=== PATIENT | male | born 1955 | race Caucasian/White ===

== ENCOUNTER 2020-02-29 14:11 | Inpatient (IN) | payer MEDICARE ==
[~2020-02-29] VITALS: Ht 170.2 cm; Wt 110.7 kg
[2020-02-29] VITALS (8 sets, daily range): BP systolic 100–113; BP diastolic 45–74
--- NOTE | 2020-02-29 14:45 | NUR ---
ED Nurse Note: IV access established on left AC 20 ga. Blood sent down
[2020-02-29 14:47] LABS: MEAN CORPUSCULAR VOLUME 94 FL (80-99); PLATELET COUNT 214 K/UL (150-450); RED BLOOD COUNT 5.55 M/UL (4.70-6.10); RED CELL DISTRIBUTION WIDTH 11.9 % (11.6-14.8); WHITE BLOOD COUNT 21.4 K/UL (4.8-10.8)
--- NOTE | 2020-02-29 14:51 | NUR ---
sED Nurse Note: Patient was brought in by ambulance from [facility] due to overdose. Per EMT physical security manager called 911. EMS found patient unresponsive, agonal breathing and cyanotic and two empty bottles of Oxycodone. Unknown ingestion time or amount. No vomitus found near patient. Patient presented with flat affect, responsive to voice, and sternal rub. Patient has labored, shallow breathing, O2 sat 76% via regular mask 6L. Patient was placed on non-rebreather mask 15L. Patient's O2 sat 97%.
[2020-02-29 14:56] LABS: HEMOGLOBIN 18.2 G/DL (14.2-18.0)
[2020-02-29 15:03] LABS: ANION GAP 19 mmol/L (5-15); BLOOD UREA NITROGEN 18 mg/dL (7-18); CALCIUM 8.9 MG/DL (8.5-10.1); CARBON DIOXIDE 21 MMOL/L (21-32); CHLORIDE 98 MMOL/L (98-107); CREATININE 2.3 MG/DL (0.55-1.30); POTASSIUM 4.6 MMOL/L (3.5-5.1); SODIUM 138 MMOL/L (136-145)
[2020-02-29 15:07] LABS: ALANINE AMINOTRANSFERASE 126 U/L (12-78); ALBUMIN 4.2 G/DL (3.4-5.0); ALBUMIN/GLOBULIN RATIO 1.1 (1.0-2.7); ALKALINE PHOSPHATASE 86 U/L (46-116); ASPARTATE AMINO TRANSFERASE 100 U/L (15-37); BILIRUBIN,TOTAL 0.2 MG/DL (0.2-1.0)
--- NOTE | 2020-02-29 16:54 | Diagnostic Imaging Report ---
Indication: Shortness of breath Technique: One view of the chest Comparison: none Findings: Patient is rotated to the right. There is some consolidation in the right perihilar region. The heart is borderline enlarged. Impression: Right perihilar consolidation, may reflect pneumonia Borderline cardiomegaly
--- NOTE | 2020-02-29 17:06 | Emergency Room Report ---
History of Present Illness General Chief Complaint: Overdose Source: EMS Present Illness HPI 64-year-old male presents for overdose. Brought in by EMS from a hotel. all source collection manager called stating that patient was unresponsive with oxycodone bottles next to him. Was given Narcan and became more awake. Patient is lethargic but still awake. Denies SI or HI. Denies pain. No other aggravating relieving factors. Denies any other associated symptoms Allergies: Uncoded Allergies: UNABLE TO OBTAIN (Allergy, Unknown, 02/29/20) COVID-19 Screening Contact w/high risk pt: No Recent Travel to affected area: No Experienced COVID-19 symptoms?: No COVID-19 Testing performed DOPE HOUSE OPERATOR HELPER: No Patient History Social History: Denies: smoking, alcohol use, drug use Immunizations: UTD Reviewed Nursing Documentation: PMH: Agreed; PSxH: Agreed Nursing Documentation-PMH Past Medical History: Deferred Review of Systems All Other Systems: negative except mentioned in HPI Physical Exam Vital Signs Date Time Temp Pulse Resp B/P (MAP) Pulse Ox O2 Delivery O2 Flow Rate FiO2 02/29/20 14:21 97.3 125 16 107/61 (76) 86 Room Air 02/29/20 14:56 15.0 Sp02 EP Interpretation: reviewed, normal General Appearance: GCS 15, non-toxic, lethargic Head: normocephalic, atraumatic Eyes: bilateral eye normal inspection, bilateral eye PERRL ENT: hearing grossly normal, normal pharynx, no angioedema, normal voice Neck: full range of motion, supple/symm/no masses Respiratory: chest non-tender, lungs clear, normal breath sounds, speaking full sentences Cardiovascular #1: regular rate, rhythm, no edema Cardiovascular #2: 2+ carotid (R), 2+ carotid (L), 2+ radial (R), 2+ radial (L) , 2+ dorsalis pedis (R), 2+ dorsalis pedis (L) Gastrointestinal: normal bowel sounds, non tender, soft, non-distended, no guarding, no rebound Rectal: deferred Genitourinary: normal inspection, no CVA tenderness Musculoskeletal: back normal, normal range of motion, gait/station normal, non- tender Neurologic: other - lethargic Psychiatric: other - lethargic Reflexes: 3+ bicep (R), 3+ bicep (L), 3+ tricep (R), 3+ tricep (L), 3+ knee (R) , 3+ knee (L) Skin: no rash Lymphatic: no adenopathy Procedures Critical Care Time Critical Care Time i. I feel this is a highly complex case requiring extensive working including EKG/Rhythm strip, Xray/CT/US, Blood/urine lab work, repeat exams while in ED, and administration of strong opiates/narcotics for pain control, admission to hospital or close patient follow up. Total time: 90 min bedside evaluation and treatment excludes procedures (EKG). Reason for critical care: overdose Possible complications: hypotension, hypertension, LA, shock, arrhythmias, metabolic acidosis, end organ damage, respiratory failure. Interventions: Labs, x-ray, IV fluids, Narcan, repeating dosing of Narcan. Cardiac monitoring, Narcan drip Course: Presenting for overdose on OxyContin. Given Narcan in field. Awake but lethargic here. Significant leukocytosis. Chest x-ray shows infiltrate concerning for aspiration. Started on IV fluids and antibiotics. Patient became very apneic and unresponsive. Given multiple doses of additional Narcan. Started on Narcan drip. Patient will be admitted to ICU Consultations: nursing staff, EMS, family Performed by: Dr Morrow Tolerated well condition = critical j. because of unstable vital signs this patient had a condition that could potentially threaten life or limb. I feel this is a critical patient who required my full attention while patient was considered critical. Total Critical Care Time excluding procedures was greater than 90 minutes Medical Decision Making Diagnostic Impression: Primary Impression: Drug overdose Qualified Codes: T50.901A - Poisoning by unspecified drugs, medicaments and biological substances, accidental (unintentional), initial encounter Additional Impression: Pneumonia Qualified Codes: J18.9 - Pneumonia, unspecified organism ER Course Hospital Course 64-year-old male presents to ED with altered mental status. overdosed on Oxycontin Differential diagnoses include: Post ictal, Dilantin toxicity, alcohol toxicity , intracranial injury Clinical course She placed on stretcher. On monitoring tech. After initial history and physical ordered labs, IV fluids, CXR Labs reviewed-electrolytes okay, no leukocytosis, hemoglobin/hematocrit stable CXR - R sided infiltrate concern for aspiration. Given IV fluids. Given antibiotics Patient became significantly unresponsive. Pinpoint pupils. Given Narcan. Requiring multiple doses of Narcan. Patient started on Narcan drip case discussed with Dr. Banuelos and he agreed to accept the patient to his service for further care and support i. I feel this is a highly complex case requiring extensive working including EKG/Rhythm strip, Xray/CT/US, Blood/urine lab work, repeat exams while in ED, and administration of strong opiates/narcotics for pain control, admission to hospital or close patient follow up. Diagnosis - drug overdose, pneumonia Admitted to ICU in critical condition Labs Test 02/29/20 14:25 White Blood Count 21.4 K/UL (4.8-10.8) Red Blood Count 5.55 M/UL (4.70-6.10) Hemoglobin 18.2 G/DL (14.2-18.0) Hematocrit 52.0 % (42.0-52.0) Mean Corpuscular Volume 94 FL (80-99) Mean Corpuscular Hemoglobin 32.7 PG (27.0-31.0) Mean Corpuscular Hemoglobin Concent 34.9 G/DL (32.0-36.0) Red Cell Distribution Width 11.9 % (11.6-14.8) Platelet Count 214 K/UL (150-450) Mean Platelet Volume 8.2 FL (6.5-10.1) Neutrophils (%) (Auto) % (45.0-75.0) Lymphocytes (%) (Auto) % (20.0-45.0) Monocytes (%) (Auto) % (1.0-10.0) Eosinophils (%) (Auto) % (0.0-3.0) Basophils (%) (Auto) % (0.0-2.0) Differential Total Cells Counted 100 Neutrophils % (Manual) 90 % (45-75) Lymphocytes % (Manual) 8 % (20-45) Monocytes % (Manual) 2 % (1-10) Eosinophils % (Manual) 0 % (0-3) Basophils % (Manual) 0 % (0-2) Band Neutrophils 0 % (0-8) Platelet Estimate Adequate Platelet Morphology Normal Red Blood Cell Morphology Normal Sodium Level 138 MMOL/L (136-145) Potassium Level 4.6 MMOL/L (3.5-5.1) Chloride Level 98 MMOL/L (98-107) Carbon Dioxide Level 21 MMOL/L (21-32) Anion Gap 19 mmol/L (5-15) Blood Urea Nitrogen 18 mg/dL (7-18) Creatinine 2.3 MG/DL (0.55-1.30) Estimat Glomerular Filtration Rate 28.6 mL/min (>60) Glucose Level 349 MG/DL (74-106) Calcium Level 8.9 MG/DL (8.5-10.1) Total Bilirubin 0.2 MG/DL (0.2-1.0) Aspartate Amino Transf (AST/SGOT) 100 U/L (15-37) Alanine Aminotransferase (ALT/SGPT) 126 U/L (12-78) Alkaline Phosphatase 86 U/L (46-116) Total Protein 8.0 G/DL (6.4-8.2) Albumin 4.2 G/DL (3.4-5.0) Globulin 3.8 g/dL Albumin/Globulin Ratio 1.1 (1.0-2.7) Salicylates Level 2.0 ug/mL (2.8-20) Acetaminophen Level < 2 MCG/ML (10-30) Serum Alcohol < 3 mg/dL Chest X-Ray Diagnostic Results Chest X-Ray Diagnostic Results : Chest X-Ray Ordered: Yes # of Views/Limited/Complete: 1 View Indication: Other EP Interpretation: Yes Interpretation: no pneumothorax, other - R sided infiltrate Impression: Other - PNA Electronically Signed by: Electronically signed by Keagan Morrow MD Last Vital Signs Date Time Temp Pulse Resp B/P (MAP) Pulse Ox O2 Delivery O2 Flow Rate FiO2 02/29/20 14:56 97.3 109 21 107/74 97 Non-Rebreather 15.0 Status: improved Disposition: ADMITTED INPATIENT Condition: Critical Referrals: NOT CHOSEN IPA/,REFERRING (PCP) Keagan Morrow MD Feb 29, 2020 17:06
[2020-02-29] MEDS ORDERED: Azithromycin 500 MG in NS 275 ML IV ONE ×2 (17:15→21:45)
[2020-02-29] MEDS ORDERED: cefTRIAXone 1 GM in NS 55 ML IVPB ONE (17:15)
--- NOTE | 2020-02-29 17:37 | NUR ---
ED Nurse Note: Patient more alert and oriented, still on 15L via non rebreather mask. NAD noted
[2020-02-29] MEDS ORDERED: Naloxone 1mg/ml 2ml ONE ×2 (18:32→21:02)
[2020-02-29] MEDS ORDERED: Naloxone 1mg/ml 2ml IVP ONE ×2 (18:45→21:00)
--- NOTE | 2020-02-29 20:00 | NUR ---
Nurse Note: Pt asleep, on 15L O2 with non rebreather satting 88-93%. Pt sinus tach at 110. Pt shows sleep apnea. MD assessed. Pt lethargic, slight diaphoretic.
[2020-02-29] MEDS ORDERED: LORazepam Inj 2mg/ml 1ml IV PRN (21:45)
[2020-02-29] MEDS ORDERED: Naloxone 2 MG in D5W 500ml 498 ML IV SCH (21:45)
[2020-02-29] MEDS ORDERED: Milk of Magnesia 30ml Ud ORAL PRN (21:45)
[2020-02-29] MEDS ORDERED: Miralax 17gm pkt ORAL PRN (21:45)
[2020-02-29] MEDS ORDERED: Acetaminophen 650 MG SUPP RECTAL PRN ×2 (21:45)
--- NOTE | 2020-02-29 21:52 | History & Physical ---
History and Physical History & Physicial 64 y/o man brought in by EMS for opiate overdose and unresponsive with oxycodone pill sfound at bedside, s/p improvement with narcan in ED. Pt also has MADHURI and lactic acidosis likely from dehydration with leukocytosis and borderline CXR for pna, will cover empirically with ceftriaxone/azithro/flagyl to cover for CAP or poss aspiration pneumonia. Cont aggressive IV fluids, nephrology consult called. Pulm consult for pna Praneeth Houston MD Feb 29, 2020 21:52
--- NOTE | 2020-02-29 22:30 | NUR ---
Nurse Note: Pt lethargic but arousable. Pt able to follow simple commands. Pinpoint pupils. Pt infusing 0.25mg/hr narcan drip; tolerating well. Pt kept dry; pt able to self turn. All safety measures met; will continue to montior.
--- NOTE | 2020-02-29 23:04 | NUR ---
ED Nurse Note: pt's called, would like update on pt or have pt call her back Genet # [phone]
[2020-03-01] VITALS (30 sets, daily range): BP systolic 100–131; BP diastolic 48–84
--- NOTE | 2020-03-01 00:40 | NUR ---
Note pretty in [facility] - 03/01/20 at 0128 by [email or web address] Nurse Note: Report given to DANIEL Rush for continuity of care.
--- NOTE | 2020-03-01 00:50 | NUR ---
Nurse Note: Per ERMD, pt remains on Narcan drip; awaitng higher level of care unit. Pt tachy, >100 beat per minute, RR ranges 6-10 breaths per minute. Pt BP within range. Afebrile. Pt kept comfortable. All safety measures met; will continue to montior.
--- NOTE | 2020-03-01 02:00 | NUR ---
NURSE NOTe pt sleeping at short interval
--- NOTE | 2020-03-01 02:00 | NUR ---
Nurse Note: Pt resting in bed, no signs of acute resp distress. IV in LT and RT AC; patent. LT AC infusing narcan at 0.25ml/hr. Pt has urinal at bedside. All safety measures met; will continue to monitor.
--- NOTE | 2020-03-01 04:35 | NUR ---
Nurse Note: Report given to DANIEL Nichols for continuity of care. MRSA, CRE, VRE swabs completed and sent to lab.
--- NOTE | 2020-03-01 06:00 | NUR ---
NURSE NOTES: admit from er pt awake and alert aol x4 follows command moved all extrimities
--- NOTE | 2020-03-01 07:31 | NUR ---
NURSE NOTES: Report received from DANIEL Smith. Patient asleep when received, easily arousal to tactile stimuli.Alert and oriented x 2-3 with no apparent distress.ST on the monitor at this time 102.Able to follow simple command.On non rebreathing mask and saturate at 94%.RAC running NS at 125cc/hr.Will continue same care plan. Patient able to self repositioned, call light within easy reach.
--- NOTE | 2020-03-01 07:54 | NUR ---
HAND-OFF: Report given to ildefonso using sbar.NURSE NOTES:
--- NOTE | 2020-03-01 08:00 | NUR ---
NURSE NOTES: Seen by Dr Banuelos with order for ABG.Order noted and carried out
[2020-03-01] MEDS: Docusate 100mg cap ORAL SCH ×2 (08:46→20:46)
[2020-03-01] MEDS: Heparin 5000 units/ml inj SUBQ SCH ×2 (08:48→20:48)
--- NOTE | 2020-03-01 08:49 | Consultation ---
History of Present Illness General Date patient seen: Mar 01, 2020 Time patient seen: 08:00 Chief Complaint: Overdose Referring physician: dr Houston Reason for Consultation: resp failure Present Illness HPI 64 years old male was brought by paramedics from a hotel for probable overdose. Per hotel operation manager, patient was unresponsive with oxycodone bottle next to him. Patient received Narcan, and initially became more awake {atient was hypoxic and required on 100% NRM Patient started on the IV fluid. Chest x-ray revealed right perihilar consolidation, probably reflecting pneumonia. Borderline cardiomegaly. Patient later became unresponsive . He received multiple Narcan doses Laboratory work-up revealed significant leukocytosis WBC 21.4, hemoglobin 18.2, hematocrit 52, platelet count 214. ABG on 100% nonrebreathing mask revealed significant acidosis with pH 7.12, PCO2 64. Chemistry demonstrated evidence of renal failure with BUN 18 , creatinine 2.3 . Lactic acid 2.1 ,repeated 3.6. Elevated LFT: AST 108, ALT 126. Urine toxicology screen was negative. Patient pancultured, started on empiric antibiotic . Patient was also swabbed for COVID-19 . Patient subsequently admitted to ICU. Allergies: Uncoded Allergies: UNABLE TO OBTAIN (Allergy, Unknown, 02/29/20) Medication History Unable to Obtain Active Prescriptions or Reported Meds Patient History Healthcare decision maker Resuscitation status Full code Advanced Directive on File Review of Systems ROS Narrative unable to obtain due to altered mental status Physical Exam General Appearance: other - unresponsive, on BiPASP with 100% FiO2 mask Lines, tubes and drains: peripheral HEENT: normocephalic, atraumatic, anicteric Respiratory/Chest: lungs clear, other - on BiPAP 15/5 FiO2 100% Cardiovascular/Chest: normal rate - SR on tele Abdomen: normal bowel sounds, non tender, soft Extremities: normal capillary refill, no edema Skin Exam: warm/dry, other - multiple skin tattoos Musculoskeletal: normal muscle bulk Last 24 Hour Vital Signs Date Time Temp Pulse Resp B/P (MAP) Pulse Ox O2 Delivery O2 Flow Rate FiO2 03/01/20 08:00 100 13 128/60 (82) 96 03/01/20 08:00 Non-Rebreather 15.0 03/01/20 07:00 98.4 100 7 110/55 (73) 97 03/01/20 06:00 125/70 (88) 89 03/01/20 05:15 103 11 110/56 (74) 95 03/01/20 05:00 98.5 99 12 110/56 (74) 96 03/01/20 05:00 Non-Rebreather 15.0 03/01/20 05:00 99 03/01/20 04:35 98.7 100 8 102/74 93 Non-Rebreather 15.0 03/01/20 04:30 100 102/74 Non-Rebreather 15.0 03/01/20 04:00 98.7 109 104/70 Non-Rebreather 15.0 03/01/20 03:35 107 110/84 Non-Rebreather 15.0 03/01/20 03:00 100 105/72 Non-Rebreather 15.0 03/01/20 02:30 109 110/67 Non-Rebreather 15.0 03/01/20 02:00 105 110/67 Non-Rebreather 15.0 03/01/20 01:30 104 106/56 Non-Rebreather 15.0 03/01/20 01:00 113 100/48 Non-Rebreather 15.0 03/01/20 00:30 97.9 102 106/69 Non-Rebreather 15.0 03/01/20 00:00 115 8 103/63 93 Non-Rebreather 15.0 02/29/20 23:30 100 10 110/58 90 Non-Rebreather 15.0 02/29/20 23:00 109 8 106/69 92 Non-Rebreather 15.0 02/29/20 22:30 108 6 100/58 91 Non-Rebreather 15.0 02/29/20 22:00 98.5 105 8 104/48 90 Non-Rebreather 15.0 02/29/20 21:00 98.1 110 15 113/50 93 Non-Rebreather 15.0 02/29/20 19:28 97.3 109 20 109/45 93 Non-Rebreather 15.0 02/29/20 14:56 97.3 109 21 107/74 97 Non-Rebreather 15.0 02/29/20 14:42 119 16 Room Air 02/29/20 14:42 97.3 119 16 107/61 86 Room Air 02/29/20 14:21 97.3 125 16 107/61 (76) 86 Room Air Intake and Output 02/29/20 03/01/20 19:00 07:00 Intake Total 2530.0 ml Output Total 200 ml Balance 2330.0 ml Intake Oral 0 ml IV Total 2530.0 ml Output Urine Total 200 ml # Voids 1 Laboratory Tests Test 02/29/20 14:25 02/29/20 20:25 02/29/20 20:30 02/29/20 23:36 White Blood Count 21.4 K/UL (4.8-10.8) H Red Blood Count 5.55 M/UL (4.70-6.10) Hemoglobin 18.2 G/DL (14.2-18.0) *H Hematocrit 52.0 % (42.0-52.0) Mean Corpuscular Volume 94 FL (80-99) Mean Corpuscular Hemoglobin 32.7 PG (27.0-31.0) H Mean Corpuscular Hemoglobin Concent 34.9 G/DL (32.0-36.0) Red Cell Distribution Width 11.9 % (11.6-14.8) Platelet Count 214 K/UL (150-450) Mean Platelet Volume 8.2 FL (6.5-10.1) Neutrophils (%) (Auto) % (45.0-75.0) Lymphocytes (%) (Auto) % (20.0-45.0) Monocytes (%) (Auto) % (1.0-10.0) Eosinophils (%) (Auto) % (0.0-3.0) Basophils (%) (Auto) % (0.0-2.0) Differential Total Cells Counted 100 Neutrophils % (Manual) 90 % (45-75) H Lymphocytes % (Manual) 8 % (20-45) L Monocytes % (Manual) 2 % (1-10) Eosinophils % (Manual) 0 % (0-3) Basophils % (Manual) 0 % (0-2) Band Neutrophils 0 % (0-8) Platelet Estimate Adequate Platelet Morphology Normal Red Blood Cell Morphology Normal Sodium Level 138 MMOL/L (136-145) Potassium Level 4.6 MMOL/L (3.5-5.1) Chloride Level 98 MMOL/L (98-107) Carbon Dioxide Level 21 MMOL/L (21-32) Anion Gap 19 mmol/L (5-15) H Blood Urea Nitrogen 18 mg/dL (7-18) Creatinine 2.3 MG/DL (0.55-1.30) H Estimat Glomerular Filtration Rate 28.6 mL/min (>60) Glucose Level 349 MG/DL (74-106) H Calcium Level 8.9 MG/DL (8.5-10.1) Total Bilirubin 0.2 MG/DL (0.2-1.0) Aspartate Amino Transf (AST/SGOT) 100 U/L (15-37) H Alanine Aminotransferase (ALT/SGPT) 126 U/L (12-78) H Alkaline Phosphatase 86 U/L (46-116) Total Protein 8.0 G/DL (6.4-8.2) Albumin 4.2 G/DL (3.4-5.0) Globulin 3.8 g/dL Albumin/Globulin Ratio 1.1 (1.0-2.7) Salicylates Level 2.0 ug/mL (2.8-20) L Acetaminophen Level < 2 MCG/ML (10-30) L Serum Alcohol < 3 mg/dL Lactic Acid Level 2.10 mmol/L (0.4-2.0) H 3.60 mmol/L (0.66-2.22) H Urine Opiates Screen Negative (NEGATIVE) Urine Barbiturates Screen Negative (NEGATIVE) Phencyclidine (PCP) Screen Negative (NEGATIVE) Urine Amphetamines Screen Negative (NEGATIVE) Urine Benzodiazepines Screen Negative (NEGATIVE) Urine Cocaine Screen Negative (NEGATIVE) Urine Marijuana (THC) Screen Negative (NEGATIVE) Test 03/01/20 06:00 03/01/20 08:18 White Blood Count Pending Red Blood Count Pending Hemoglobin Pending Hematocrit Pending Mean Corpuscular Volume Pending Mean Corpuscular Hemoglobin Pending Mean Corpuscular Hemoglobin Concent Pending Red Cell Distribution Width Pending Platelet Count Pending Mean Platelet Volume Pending Neutrophils (%) (Auto) Pending Lymphocytes (%) (Auto) Pending Monocytes (%) (Auto) Pending Eosinophils (%) (Auto) Pending Basophils (%) (Auto) Pending Sodium Level Pending Potassium Level Pending Chloride Level Pending Carbon Dioxide Level Pending Blood Urea Nitrogen Pending Creatinine Pending Estimat Glomerular Filtration Rate Pending Glucose Level Pending Calcium Level Pending Arterial Blood pH 7.123 (7.350-7.450) Arterial Blood Partial Pressure CO2 64.3 mmHg (35.0-45.0) *H Arterial Blood Partial Pressure O2 85.6 mmHg (75.0-100.0) Arterial Blood HCO3 20.6 mmol/L (22.0-26.0) L Arterial Blood Oxygen Saturation 96.2 % (95-100) Arterial Blood Base Excess -9.9 (-2-2) *L Frankie Test Positive Microbiology Date/Time Source Procedure Growth Status 03/01/20 04:35 Rectum Received Height (Feet): 5 Height (Inches): 7.00 Weight (Pounds): 248 Medications Current Medications Medications (Trade) Dose Ordered Sig/Zan Route PRN Reason Start Time Stop Time Status Last Admin Dose Admin Acetaminophen (Tylenol) 650 mg Q4H PRN ORAL Mild Pain (Pain Scale 1-3) 02/29/20 21:45 03/30/20 21:44 Acetaminophen (Tylenol) 650 mg Q4H PRN ORAL Temp >100.5 02/29/20 21:45 03/30/20 21:44 Acetaminophen (Tylenol) 650 mg Q4H PRN RECTAL Mild Pain (Pain Scale 1-3) 02/29/20 21:45 03/30/20 21:44 Acetaminophen (Tylenol) 650 mg Q4H PRN RECTAL Temp >100.5 02/29/20 21:45 03/30/20 21:44 Azithromycin 500 mg/Sodium Chloride 275 ml @ 275 mls/hr Q24HRS ONCE IV 02/29/20 21:45 02/29/20 22:44 UNV Bisacodyl (Dulcolax) 10 mg HSPRN PRN RECTAL Constipation 02/29/20 21:45 05/29/20 21:44 Ceftriaxone Sodium 1 gm/ Sodium Chloride 55 ml @ 110 mls/hr Q24HRS IVPB 03/01/20 18:00 03/08/20 17:59 Dextrose (Dextrose 50%) 25 ml Q30M PRN IV Hypoglycemia 02/29/20 21:45 05/29/20 21:44 Dextrose (Dextrose 50%) 50 ml Q30M PRN IV Hypoglycemia 02/29/20 21:45 05/29/20 21:44 Docusate Sodium (Colace) 100 mg EVERY 12 HOURS ORAL 03/01/20 09:00 03/31/20 08:59 Heparin Sodium (Porcine) (Heparin 5000 units/ml) 5,000 units EVERY 12 HOURS SUBQ 03/01/20 09:00 04/15/20 08:59 Lorazepam (Ativan 2mg/ml 1ml) 0.5 mg Q4H PRN IV Agitation 02/29/20 21:45 03/07/20 21:44 Magnesium Hydroxide (Mom) 30 ml HSPRN PRN ORAL Constipation 02/29/20 21:45 03/30/20 21:44 Metronidazole 100 ml @ 100 mls/hr Q8H IVPB 03/01/20 00:00 03/08/20 00:00 03/01/20 01:07 Naloxone HCl 2 mg/ Dextrose 500 ml @ 0 mls/hr Q24H IV 02/29/20 21:45 03/30/20 21:44 02/29/20 22:03 Ondansetron HCl (Zofran) 4 mg Q6H PRN IVP Nausea & Vomiting 02/29/20 21:45 03/30/20 21:44 Polyethylene Glycol (Miralax) 17 gm HSPRN PRN ORAL Constipation 02/29/20 21:45 03/30/20 21:44 Sodium Chloride 1,000 ml @ 125 mls/hr Q8H IVLG 03/01/20 00:00 03/31/20 00:00 03/01/20 05:48 Assessment/Plan Assessment/Plan: ASSESSMENT Acute toxic metabolic encephalopathy Acute hypoxemic hypercapnic respiratory failure, requiring NRM and BiPAP Sepsis Probably aspiration PNA Acute renal failure, possibly on CKD Lactic acidosis Transaminitis Suspected COVID 19 infection PLAN OF CARE ICU changed to BiPAP, given hypercapnia pulm toilet isolation empiric abx to cover atypical and anaerobic / Zithromax, ceftriaxone, Flagyl fup with cx fup with SARS COV 2 by PCR result fup with ABG and CXR in am DVT prophylaxis IVF monitor renal parameters, lytes avoid nephrotoxics correct lytes as needed trend LFT , hep panel supportive care case discussed and evaluated by supervising physician Marcela Salmeron NP Mar 01, 2020 08:49
[2020-03-01 10:10] LABS: HEMATOCRIT 44.9 % (42.0-52.0); MEAN CORPUSCULAR VOLUME 92 FL (80-99); PLATELET COUNT 157 K/UL (150-450); RED BLOOD COUNT 4.88 M/UL (4.70-6.10); RED CELL DISTRIBUTION WIDTH 11.8 % (11.6-14.8); WHITE BLOOD COUNT 14.1 K/UL (4.8-10.8)
--- NOTE | 2020-03-01 10:13 | NUR ---
NURSE NOTES: ABG result relayed to Dr Banuelos with order to put pt on BIPAP 15/. Pt seen by Marcela Salmeron NP will follow up new order.Pt able to self repositioned, still noted with episode of confusion, removing all devices and clothes, reeducate pt.Cov swab not done yet, awaiting approval criteria per charge nurse.Call light within easy reach, will continue close monitoring.No significant change
[2020-03-01 10:19] LABS: ANION GAP 12 mmol/L (5-15); BLOOD UREA NITROGEN 26 mg/dL (7-18); CALCIUM 7.6 MG/DL (8.5-10.1); CARBON DIOXIDE 23 MMOL/L (21-32); CHLORIDE 105 MMOL/L (98-107); CREATININE 1.8 MG/DL (0.55-1.30); POTASSIUM 5.2 MMOL/L (3.5-5.1); SODIUM 140 MMOL/L (136-145)
--- NOTE | 2020-03-01 10:27 | Consultation ---
History of Present Illness General Chief Complaint: Overdose Referring physician: dr Houston Reason for Consultation: MADHURI Present Illness HPI 64 y/o man brought in by EMS for opiate overdose and unresponsive with oxycodone pill sfound at bedside, s/p improvement with narcan in ED. Was found by the hotel room attendant, who called 911. He denies any suicidal intent, though he reports he was having "financial problems." He doesn't take any other medications. He denies prior hx of overdose or oxycodone use, this was his first time. Allergies: Uncoded Allergies: UNABLE TO OBTAIN (Allergy, Unknown, 02/29/20) Medication History Unable to Obtain Active Prescriptions or Reported Meds Patient History Healthcare decision maker Resuscitation status Advanced Directive on File Review of Systems ROS Narrative Unable to obtain Physical Exam General Appearance: lethargic Lines, tubes and drains: peripheral HEENT: normocephalic, atraumatic Neck: non-tender, normal alignment Respiratory/Chest: chest wall non-tender, lungs clear Cardiovascular/Chest: normal peripheral pulses, normal rate, regular rhythm, tachycardia Abdomen: normal bowel sounds, non tender, soft, no organomegaly Extremities: non-tender, no edema Skin Exam: normal pigmentation Neurologic: disoriented Last 24 Hour Vital Signs Date Time Temp Pulse Resp B/P (MAP) Pulse Ox O2 Delivery O2 Flow Rate FiO2 03/01/20 10:00 103 18 115/60 (78) 91 03/01/20 09:15 103 17 100 100 03/01/20 09:15 99 12 99 Bi-Pap 100 03/01/20 09:00 106 18 128/60 (82) 90 03/01/20 08:00 100 13 128/60 (82) 96 03/01/20 08:00 Non-Rebreather 15.0 03/01/20 07:00 98.4 100 7 110/55 (73) 97 03/01/20 06:00 125/70 (88) 89 03/01/20 05:15 103 11 110/56 (74) 95 03/01/20 05:00 98.5 99 12 110/56 (74) 96 03/01/20 05:00 Non-Rebreather 15.0 03/01/20 05:00 99 03/01/20 04:35 98.7 100 8 102/74 93 Non-Rebreather 15.0 03/01/20 04:30 100 102/74 Non-Rebreather 15.0 03/01/20 04:00 98.7 109 104/70 Non-Rebreather 15.0 03/01/20 03:35 107 110/84 Non-Rebreather 15.0 03/01/20 03:00 100 105/72 Non-Rebreather 15.0 03/01/20 02:30 109 110/67 Non-Rebreather 15.0 03/01/20 02:00 105 110/67 Non-Rebreather 15.0 03/01/20 01:30 104 106/56 Non-Rebreather 15.0 03/01/20 01:00 113 100/48 Non-Rebreather 15.0 03/01/20 00:30 97.9 102 106/69 Non-Rebreather 15.0 03/01/20 00:00 115 8 103/63 93 Non-Rebreather 15.0 02/29/20 23:30 100 10 110/58 90 Non-Rebreather 15.0 02/29/20 23:00 109 8 106/69 92 Non-Rebreather 15.0 02/29/20 22:30 108 6 100/58 91 Non-Rebreather 15.0 02/29/20 22:00 98.5 105 8 104/48 90 Non-Rebreather 15.0 02/29/20 21:00 98.1 110 15 113/50 93 Non-Rebreather 15.0 02/29/20 19:28 97.3 109 20 109/45 93 Non-Rebreather 15.0 02/29/20 14:56 97.3 109 21 107/74 97 Non-Rebreather 15.0 02/29/20 14:42 119 16 Room Air 02/29/20 14:42 97.3 119 16 107/61 86 Room Air 02/29/20 14:21 97.3 125 16 107/61 (76) 86 Room Air Intake and Output 02/29/20 03/01/20 19:00 07:00 Intake Total 2655.0 ml Output Total 200 ml Balance 2455.0 ml Intake Oral 0 ml IV Total 2655.0 ml Output Urine Total 200 ml # Voids 1 Laboratory Tests Test 02/29/20 14:25 02/29/20 20:25 6/10/20 20:30 02/29/20 23:36 White Blood Count 21.4 K/UL (4.8-10.8) H Red Blood Count 5.55 M/UL (4.70-6.10) Hemoglobin 18.2 G/DL (14.2-18.0) *H Hematocrit 52.0 % (42.0-52.0) Mean Corpuscular Volume 94 FL (80-99) Mean Corpuscular Hemoglobin 32.7 PG (27.0-31.0) H Mean Corpuscular Hemoglobin Concent 34.9 G/DL (32.0-36.0) Red Cell Distribution Width 11.9 % (11.6-14.8) Platelet Count 214 K/UL (150-450) Mean Platelet Volume 8.2 FL (6.5-10.1) Neutrophils (%) (Auto) % (45.0-75.0) Lymphocytes (%) (Auto) % (20.0-45.0) Monocytes (%) (Auto) % (1.0-10.0) Eosinophils (%) (Auto) % (0.0-3.0) Basophils (%) (Auto) % (0.0-2.0) Differential Total Cells Counted 100 Neutrophils % (Manual) 90 % (45-75) H Lymphocytes % (Manual) 8 % (20-45) L Monocytes % (Manual) 2 % (1-10) Eosinophils % (Manual) 0 % (0-3) Basophils % (Manual) 0 % (0-2) Band Neutrophils 0 % (0-8) Platelet Estimate Adequate Platelet Morphology Normal Red Blood Cell Morphology Normal Sodium Level 138 MMOL/L (136-145) Potassium Level 4.6 MMOL/L (3.5-5.1) Chloride Level 98 MMOL/L (98-107) Carbon Dioxide Level 21 MMOL/L (21-32) Anion Gap 19 mmol/L (5-15) H Blood Urea Nitrogen 18 mg/dL (7-18) Creatinine 2.3 MG/DL (0.55-1.30) H Estimat Glomerular Filtration Rate 28.6 mL/min (>60) Glucose Level 349 MG/DL (74-106) H Calcium Level 8.9 MG/DL (8.5-10.1) Total Bilirubin 0.2 MG/DL (0.2-1.0) Aspartate Amino Transf (AST/SGOT) 100 U/L (15-37) H Alanine Aminotransferase (ALT/SGPT) 126 U/L (12-78) H Alkaline Phosphatase 86 U/L (46-116) Total Protein 8.0 G/DL (6.4-8.2) Albumin 4.2 G/DL (3.4-5.0) Globulin 3.8 g/dL Albumin/Globulin Ratio 1.1 (1.0-2.7) Salicylates Level 2.0 ug/mL (2.8-20) L Acetaminophen Level < 2 MCG/ML (10-30) L Serum Alcohol < 3 mg/dL Lactic Acid Level 2.10 mmol/L (0.4-2.0) H 3.60 mmol/L (0.66-2.22) H Urine Opiates Screen Negative (NEGATIVE) Urine Barbiturates Screen Negative (NEGATIVE) Phencyclidine (PCP) Screen Negative (NEGATIVE) Urine Amphetamines Screen Negative (NEGATIVE) Urine Benzodiazepines Screen Negative (NEGATIVE) Urine Cocaine Screen Negative (NEGATIVE) Urine Marijuana (THC) Screen Negative (NEGATIVE) Test 03/01/20 08:18 03/01/20 09:45 Arterial Blood pH 7.123 (7.350-7.450) Arterial Blood Partial Pressure CO2 64.3 mmHg (35.0-45.0) *H Arterial Blood Partial Pressure O2 85.6 mmHg (75.0-100.0) Arterial Blood HCO3 20.6 mmol/L (22.0-26.0) L Arterial Blood Oxygen Saturation 96.2 % (95-100) Arterial Blood Base Excess -9.9 (-2-2) *L Frankie Test Positive White Blood Count 14.1 K/UL (4.8-10.8) H Red Blood Count 4.88 M/UL (4.70-6.10) Hemoglobin 16.0 G/DL (14.2-18.0) Hematocrit 44.9 % (42.0-52.0) Mean Corpuscular Volume 92 FL (80-99) Mean Corpuscular Hemoglobin 32.8 PG (27.0-31.0) H Mean Corpuscular Hemoglobin Concent 35.6 G/DL (32.0-36.0) Red Cell Distribution Width 11.8 % (11.6-14.8) Platelet Count 157 K/UL (150-450) Mean Platelet Volume 8.1 FL (6.5-10.1) Neutrophils (%) (Auto) % (45.0-75.0) Lymphocytes (%) (Auto) % (20.0-45.0) Monocytes (%) (Auto) % (1.0-10.0) Eosinophils (%) (Auto) % (0.0-3.0) Basophils (%) (Auto) % (0.0-2.0) Neutrophils % (Manual) Pending Lymphocytes % (Manual) Pending Platelet Estimate Pending Platelet Morphology Pending Sodium Level 140 MMOL/L (136-145) Potassium Level 5.2 MMOL/L (3.5-5.1) H Chloride Level 105 MMOL/L (98-107) Carbon Dioxide Level 23 MMOL/L (21-32) Anion Gap 12 mmol/L (5-15) Blood Urea Nitrogen 26 mg/dL (7-18) H Creatinine 1.8 MG/DL (0.55-1.30) H Estimat Glomerular Filtration Rate 37.9 mL/min (>60) Glucose Level 140 MG/DL (74-106) #H Lactic Acid Level Pending Calcium Level 7.6 MG/DL (8.5-10.1) L Microbiology Date/Time Source Procedure Growth Status 03/01/20 04:35 Rectum Received Height (Feet): 5 Height (Inches): 7.00 Weight (Pounds): 248 Medications Current Medications Medications (Trade) Dose Ordered Sig/Zan Route PRN Reason Start Time Stop Time Status Last Admin Dose Admin Acetaminophen (Tylenol) 650 mg Q4H PRN ORAL Mild Pain (Pain Scale 1-3) 02/29/20 21:45 03/30/20 21:44 Acetaminophen (Tylenol) 650 mg Q4H PRN ORAL Temp >100.5 02/29/20 21:45 03/30/20 21:44 Acetaminophen (Tylenol) 650 mg Q4H PRN RECTAL Mild Pain (Pain Scale 1-3) 02/29/20 21:45 03/30/20 21:44 Acetaminophen (Tylenol) 650 mg Q4H PRN RECTAL Temp >100.5 02/29/20 21:45 03/30/20 21:44 Bisacodyl (Dulcolax) 10 mg HSPRN PRN RECTAL Constipation 02/29/20 21:45 05/29/20 21:44 Ceftriaxone Sodium 1 gm/ Sodium Chloride 55 ml @ 110 mls/hr Q24HRS IVPB 03/01/20 18:00 03/08/20 17:59 Dextrose (Dextrose 50%) 25 ml Q30M PRN IV Hypoglycemia 02/29/20 21:45 05/29/20 21:44 Dextrose (Dextrose 50%) 50 ml Q30M PRN IV Hypoglycemia 02/29/20 21:45 05/29/20 21:44 Docusate Sodium (Colace) 100 mg EVERY 12 HOURS ORAL 03/01/20 09:00 03/31/20 08:59 03/01/20 08:46 Heparin Sodium (Porcine) (Heparin 5000 units/ml) 5,000 units EVERY 12 HOURS SUBQ 03/01/20 09:00 04/15/20 08:59 03/01/20 08:48 Lorazepam (Ativan 2mg/ml 1ml) 0.5 mg Q4H PRN IV Agitation 02/29/20 21:45 03/07/20 21:44 Magnesium Hydroxide (Mom) 30 ml HSPRN PRN ORAL Constipation 02/29/20 21:45 03/30/20 21:44 Naloxone HCl 2 mg/ Dextrose 500 ml @ 0 mls/hr Q24H IV 02/29/20 21:45 03/30/20 21:44 02/29/20 22:03 Ondansetron HCl (Zofran) 4 mg Q6H PRN IVP Nausea & Vomiting 02/29/20 21:45 03/30/20 21:44 Piperacillin Sod/ Tazobactam Sod 3.375 gm/Sodium Chloride 110 ml @ 27.5 mls/hr EVERY 8 HOURS IVPB 03/01/20 14:00 03/06/20 13:59 Polyethylene Glycol (Miralax) 17 gm HSPRN PRN ORAL Constipation 02/29/20 21:45 03/30/20 21:44 Sodium Chloride 1,000 ml @ 125 mls/hr Q8H IVLG 03/01/20 00:00 03/31/20 00:00 03/01/20 05:48 Assessment/Plan Diagnosis [place] I: #Acute kidney injury due to pre-renal azotemia - on CKD #Sepsis #opiod overdose #hypoxemic resp failure # toxic metabolic encephalopathy # possible aspiration pneumonia - continue NS at 125 cc/hr - check urine studies - defer renal imaging at this time - antibiotics per ID - on non-rebreather mask - monitor BMP, mag and phos daily - avoid nephrotoxins - strict I&Os - daily weights Tong Greene M.D. Mar 01, 2020 10:27
--- NOTE | 2020-03-01 11:14 | NUR ---
NURSE NOTES: Relayed ABG to Dr Banuelos, no new order.Ok to start pt diet and remove Bipap before eating,make sure pt awake and put back Bipap 30 to 45mn after eating.Order noted and carried out. 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 Will like him to have a psych consult.Marcela Salmeron Np made aware
[2020-03-01] MEDS ORDERED: Sodium Polystyrene Sulfonate 15gm Powder ORAL SCH (12:00)
--- NOTE | 2020-03-01 12:04 | NUR ---
NURSE NOTES: Pt awake, with episode of confusion and removal of devices, pt reeducated.Able to follow command and make needs known.Call light within easy reach.Will continue close monitoring Addendum: 03/01/20 at 1713 by Priya De Dios RN Seen by Dr Harman, order for beside swallow eval and start on diet. No episode of cough during eval. Started on soft easy chew diet.Will continue close monitoring
[2020-03-01] MEDS: Piperacillin/Tazobactam 3.375 GM in NS 110 ML IVPB SCH ×2 (13:07→21:21)
--- NOTE | 2020-03-01 13:20 | History and Physical ---
History of Present Illness General Date patient seen: Mar 01, 2020 Reason for Hospitalization: drug overdose Present Illness HPI 64 y/o man brought in by EMS for opiate overdose and unresponsive with oxycodone pill sfound at bedside, s/p improvement with narcan in ED. Was found by the manager provider relations, who called 911. He denies any suicidal intent, though he reports he was having "financial problems." He doesn't take any other medications. He denies prior hx of overdose or oxycodone use, this was his first time. Allergies: Uncoded Allergies: UNABLE TO OBTAIN (Allergy, Unknown, 02/29/20) COVID-19 Screening Contact w/high risk pt: No Recent Travel to affected area: No Experienced COVID-19 symptoms?: No Medication History Unable to Obtain Active Prescriptions or Reported Meds Patient History Healthcare decision maker Resuscitation status Advanced Directive on File Review of Systems Constitutional: Denies: no symptoms, see HPI, chills, sweats, fever, malaise, weakness, other Eye: Denies: no symptoms, see HPI, eye pain, blurred vision, tearing, double vision, nose pain, nose congestion, acuity changes, discharge, other ENT: Denies: no symptoms, see HPI, ear pain, ear discharge, nose pain, nose congestion, throat pain, throat swelling, mouth pain, hearing loss, nasal discharge, other Respiratory: Denies: no symptoms, see HPI, cough, orthopnea, shortness of breath, stridor, wheezing, RAM, sputum, other Cardiovascular: Denies: no symptoms, see HPI, chest pain, edema, palpitations, syncope, PND, other Gastrointestinal: Denies: no symptoms, see HPI, abdominal pain, constipation, diarrhea, nausea, vomiting, melena, hematemesis, other Genitourinary: Denies: no symptoms, see HPI, discharge, dysuria, frequency, hematuria, pain, retention, incontinence, urgency, vag bleed/dc, other Musculoskeletal: Denies: no symptoms, see HPI, back pain, gout, joint pain, joint swelling, muscle pain, muscle stiffness, other Skin: Denies: no symptoms, see HPI, rash, change in color, change in hair/nails , dryness, lesions, other Psychiatric: Denies: no symptoms, see HPI, prior hx, anxiety, depressed feelings, emotional problems, SI, HI, hallucinations, other Neurological: Denies: no symptoms, see HPI, headache, numbness, paresthesia, seizure, tingling, tremors, focal weakness, syncope, dizziness, other Endocrine: Denies: no symptoms, see HPI, excessive sweating, flushing, intolerance to temperature, increased thirst, increased urine, unexplained weight loss, other Hematologic/Lymphatic: Denies: no symptoms, see HPI, anemia, blood clots, easy bleeding, easy bruising, swollen glands, diathesis, other Physical Exam General Appearance: no apparent distress, alert HEENT: normocephalic, atraumatic Neck: supple Respiratory/Chest: lungs clear, normal breath sounds, no respiratory distress Cardiovascular/Chest: normal rate, regular rhythm Abdomen: non tender, soft Neurologic: alert Last 24 Hour Vital Signs Date Time Temp Pulse Resp B/P (MAP) Pulse Ox O2 Delivery O2 Flow Rate FiO2 03/01/20 12:00 Non-Rebreather 15.0 03/01/20 12:00 104 03/01/20 12:00 99.8 110 24 112/58 (76) 03/01/20 11:20 97 15 100 100 03/01/20 11:00 105 18 111/63 (79) 93 03/01/20 10:00 103 18 115/60 (78) 91 03/01/20 09:15 103 17 100 100 03/01/20 09:15 99 12 99 Bi-Pap 100 03/01/20 09:00 106 18 128/60 (82) 90 03/01/20 08:00 100 13 128/60 (82) 96 03/01/20 08:00 Non-Rebreather 15.0 03/01/20 07:00 98.4 100 7 110/55 (73) 97 03/01/20 06:00 125/70 (88) 89 03/01/20 05:15 103 11 110/56 (74) 95 03/01/20 05:00 98.5 99 12 110/56 (74) 96 03/01/20 05:00 Non-Rebreather 15.0 03/01/20 05:00 99 03/01/20 04:35 98.7 100 8 102/74 93 Non-Rebreather 15.0 03/01/20 04:30 100 102/74 Non-Rebreather 15.0 03/01/20 04:00 98.7 109 104/70 Non-Rebreather 15.0 03/01/20 03:35 107 110/84 Non-Rebreather 15.0 03/01/20 03:00 100 105/72 Non-Rebreather 15.0 03/01/20 02:30 109 110/67 Non-Rebreather 15.0 03/01/20 02:00 105 110/67 Non-Rebreather 15.0 03/01/20 01:30 104 106/56 Non-Rebreather 15.0 03/01/20 01:00 113 100/48 Non-Rebreather 15.0 03/01/20 00:30 97.9 102 106/69 Non-Rebreather 15.0 03/01/20 00:00 115 8 103/63 93 Non-Rebreather 15.0 02/29/20 23:30 100 10 110/58 90 Non-Rebreather 15.0 02/29/20 23:00 109 8 106/69 92 Non-Rebreather 15.0 02/29/20 22:30 108 6 100/58 91 Non-Rebreather 15.0 02/29/20 22:00 98.5 105 8 104/48 90 Non-Rebreather 15.0 02/29/20 21:00 98.1 110 15 113/50 93 Non-Rebreather 15.0 02/29/20 19:28 97.3 109 20 109/45 93 Non-Rebreather 15.0 02/29/20 14:56 97.3 109 21 107/74 97 Non-Rebreather 15.0 02/29/20 14:42 119 16 Room Air 02/29/20 14:42 97.3 119 16 107/61 86 Room Air 02/29/20 14:21 97.3 125 16 107/61 (76) 86 Room Air Intake and Output 02/29/20 03/01/20 19:00 07:00 Intake Total 2655.0 ml Output Total 200 ml Balance 2455.0 ml Intake Oral 0 ml IV Total 2655.0 ml Output Urine Total 200 ml # Voids 1 Laboratory Tests Test 02/29/20 14:25 02/29/20 20:25 02/29/20 20:30 02/29/20 23:36 White Blood Count 21.4 K/UL (4.8-10.8) H Red Blood Count 5.55 M/UL (4.70-6.10) Hemoglobin 18.2 G/DL (14.2-18.0) *H Hematocrit 52.0 % (42.0-52.0) Mean Corpuscular Volume 94 FL (80-99) Mean Corpuscular Hemoglobin 32.7 PG (27.0-31.0) H Mean Corpuscular Hemoglobin Concent 34.9 G/DL (32.0-36.0) Red Cell Distribution Width 11.9 % (11.6-14.8) Platelet Count 214 K/UL (150-450) Mean Platelet Volume 8.2 FL (6.5-10.1) Neutrophils (%) (Auto) % (45.0-75.0) Lymphocytes (%) (Auto) % (20.0-45.0) Monocytes (%) (Auto) % (1.0-10.0) Eosinophils (%) (Auto) % (0.0-3.0) Basophils (%) (Auto) % (0.0-2.0) Differential Total Cells Counted 100 Neutrophils % (Manual) 90 % (45-75) H Lymphocytes % (Manual) 8 % (20-45) L Monocytes % (Manual) 2 % (1-10) Eosinophils % (Manual) 0 % (0-3) Basophils % (Manual) 0 % (0-2) Band Neutrophils 0 % (0-8) Platelet Estimate Adequate Platelet Morphology Normal Red Blood Cell Morphology Normal Sodium Level 138 MMOL/L (136-145) Potassium Level 4.6 MMOL/L (3.5-5.1) Chloride Level 98 MMOL/L (98-107) Carbon Dioxide Level 21 MMOL/L (21-32) Anion Gap 19 mmol/L (5-15) H Blood Urea Nitrogen 18 mg/dL (7-18) Creatinine 2.3 MG/DL (0.55-1.30) H Estimat Glomerular Filtration Rate 28.6 mL/min (>60) Glucose Level 349 MG/DL (74-106) H Calcium Level 8.9 MG/DL (8.5-10.1) Total Bilirubin 0.2 MG/DL (0.2-1.0) Aspartate Amino Transf (AST/SGOT) 100 U/L (15-37) H Alanine Aminotransferase (ALT/SGPT) 126 U/L (12-78) H Alkaline Phosphatase 86 U/L (46-116) Total Protein 8.0 G/DL (6.4-8.2) Albumin 4.2 G/DL (3.4-5.0) Globulin 3.8 g/dL Albumin/Globulin Ratio 1.1 (1.0-2.7) Salicylates Level 2.0 ug/mL (2.8-20) L Acetaminophen Level < 2 MCG/ML (10-30) L Serum Alcohol < 3 mg/dL Lactic Acid Level 2.10 mmol/L (0.4-2.0) H 3.60 mmol/L (0.66-2.22) H Urine Opiates Screen Negative (NEGATIVE) Urine Barbiturates Screen Negative (NEGATIVE) Phencyclidine (PCP) Screen Negative (NEGATIVE) Urine Amphetamines Screen Negative (NEGATIVE) Urine Benzodiazepines Screen Negative (NEGATIVE) Urine Cocaine Screen Negative (NEGATIVE) Urine Marijuana (THC) Screen Negative (NEGATIVE) Test 03/01/20 08:18 03/01/20 09:45 03/01/20 10:55 Arterial Blood pH 7.123 (7.350-7.450) 7.194 (7.350-7.450) Arterial Blood Partial Pressure CO2 64.3 mmHg (35.0-45.0) *H 54.5 mmHg (35.0-45.0) H Arterial Blood Partial Pressure O2 85.6 mmHg (75.0-100.0) 90.0 mmHg (75.0-100.0) Arterial Blood HCO3 20.6 mmol/L (22.0-26.0) L 20.5 mmol/L (22.0-26.0) L Arterial Blood Oxygen Saturation 96.2 % (95-100) 96.6 % (95-100) Arterial Blood Base Excess -9.9 (-2-2) *L -8.2 (-2-2) L Frankie Test Positive Positive White Blood Count 14.1 K/UL (4.8-10.8) H Red Blood Count 4.88 M/UL (4.70-6.10) Hemoglobin 16.0 G/DL (14.2-18.0) Hematocrit 44.9 % (42.0-52.0) Mean Corpuscular Volume 92 FL (80-99) Mean Corpuscular Hemoglobin 32.8 PG (27.0-31.0) H Mean Corpuscular Hemoglobin Concent 35.6 G/DL (32.0-36.0) Red Cell Distribution Width 11.8 % (11.6-14.8) Platelet Count 157 K/UL (150-450) Mean Platelet Volume 8.1 FL (6.5-10.1) Neutrophils (%) (Auto) % (45.0-75.0) Lymphocytes (%) (Auto) % (20.0-45.0) Monocytes (%) (Auto) % (1.0-10.0) Eosinophils (%) (Auto) % (0.0-3.0) Basophils (%) (Auto) % (0.0-2.0) Differential Total Cells Counted 100 Neutrophils % (Manual) 82 % (45-75) H Lymphocytes % (Manual) 9 % (20-45) L Monocytes % (Manual) 6 % (1-10) Eosinophils % (Manual) 0 % (0-3) Basophils % (Manual) 0 % (0-2) Band Neutrophils 3 % (0-8) Platelet Estimate Adequate Platelet Morphology Normal Red Blood Cell Morphology Normal Sodium Level 140 MMOL/L (136-145) Potassium Level 5.2 MMOL/L (3.5-5.1) H Chloride Level 105 MMOL/L (98-107) Carbon Dioxide Level 23 MMOL/L (21-32) Anion Gap 12 mmol/L (5-15) Blood Urea Nitrogen 26 mg/dL (7-18) H Creatinine 1.8 MG/DL (0.55-1.30) H Estimat Glomerular Filtration Rate 37.9 mL/min (>60) Glucose Level 140 MG/DL (74-106) #H Lactic Acid Level 3.30 mmol/L (0.4-2.0) H Calcium Level 7.6 MG/DL (8.5-10.1) L Microbiology Date/Time Source Procedure Growth Status 03/01/20 04:35 Rectum Received Height (Feet): 5 Height (Inches): 7.00 Weight (Pounds): 248 Medications Current Medications Medications (Trade) Dose Ordered Sig/Zan Route PRN Reason Start Time Stop Time Status Last Admin Dose Admin Acetaminophen (Tylenol) 650 mg Q4H PRN ORAL Mild Pain (Pain Scale 1-3) 02/29/20 21:45 03/30/20 21:44 Acetaminophen (Tylenol) 650 mg Q4H PRN ORAL Temp >100.5 02/29/20 21:45 03/30/20 21:44 Acetaminophen (Tylenol) 650 mg Q4H PRN RECTAL Mild Pain (Pain Scale 1-3) 02/29/20 21:45 03/30/20 21:44 Acetaminophen (Tylenol) 650 mg Q4H PRN RECTAL Temp >100.5 02/29/20 21:45 03/30/20 21:44 Bisacodyl (Dulcolax) 10 mg HSPRN PRN RECTAL Constipation 02/29/20 21:45 05/29/20 21:44 Ceftriaxone Sodium 1 gm/ Sodium Chloride 55 ml @ 110 mls/hr Q24HRS IVPB 03/01/20 18:00 03/08/20 17:59 Dextrose (Dextrose 50%) 25 ml Q30M PRN IV Hypoglycemia 02/29/20 21:45 05/29/20 21:44 Dextrose (Dextrose 50%) 50 ml Q30M PRN IV Hypoglycemia 02/29/20 21:45 05/29/20 21:44 Docusate Sodium (Colace) 100 mg EVERY 12 HOURS ORAL 03/01/20 09:00 03/31/20 08:59 03/01/20 08:46 Heparin Sodium (Porcine) (Heparin 5000 units/ml) 5,000 units EVERY 12 HOURS SUBQ 03/01/20 09:00 04/15/20 08:59 03/01/20 08:48 Lorazepam (Ativan 2mg/ml 1ml) 0.5 mg Q4H PRN IV Agitation 02/29/20 21:45 03/07/20 21:44 Magnesium Hydroxide (Mom) 30 ml HSPRN PRN ORAL Constipation 02/29/20 21:45 03/30/20 21:44 Ondansetron HCl (Zofran) 4 mg Q6H PRN IVP Nausea & Vomiting 02/29/20 21:45 03/30/20 21:44 Piperacillin Sod/ Tazobactam Sod 3.375 gm/Sodium Chloride 110 ml @ 27.5 mls/hr EVERY 8 HOURS IVPB 03/01/20 14:00 03/06/20 13:59 03/01/20 13:07 Polyethylene Glycol (Miralax) 17 gm HSPRN PRN ORAL Constipation 02/29/20 21:45 03/30/20 21:44 Sodium Chloride 1,000 ml @ 125 mls/hr Q8H IVLG 03/01/20 00:00 03/31/20 00:00 03/01/20 05:48 Assessment/Plan Problem List: (1) Drug overdose ICD Codes: T50.901A - Poisoning by unspecified drugs, medicaments and biological substances, accidental (unintentional), initial encounter SNOMED: 78921999 Qualifiers: Qualified Codes: T50.901A - Poisoning by unspecified drugs, medicaments and biological substances, accidental (unintentional), initial encounter (2) Pneumonia ICD Codes: J18.9 - Pneumonia, unspecified organism SNOMED: 610428308 Qualifiers: Qualified Codes: J18.9 - Pneumonia, unspecified organism Status: stable Diagnosis [place] I: Mr. Chen is a 64 year old male with no prior PMHx, presenting with a oxycodone overdose s/p narcane, also found to have likely aspirational PNA and hypercapneic resp failure. #Drug overdose -denies SI/SA. -SW consult -monitor vitals and signs of withdrawal. -Utox otherwise negative. #Hypercapneic respiratory failure #Aspiration PNA #Sepsis -CXR with RLL infiltrate, leukocytosis, concerning for aspiration PNA- -continue zosyn (03/01 - ) -keep BiPAP continous for now, other than eating. -swallow eval -> diet. Time spent on encounter, 70 mins, 40 mins on counseling and coordination of care , d/w DENTAL FRONT OFFICE ASSISTANT, ICU staff, consultants. Time of note doesn't reflect time of encounter. Jose Harman MD Mar 01, 2020 13:20
--- NOTE | 2020-03-01 14:10 | NUR ---
NURSE NOTES: Pt asleep, no signs distress.HOB elevated to prevent aspiration.Will continue to monitor. Call light within easy reach.Able to self repositioned.
--- NOTE | 2020-03-01 14:13 | NUR ---
CASE MANAGEMENT:REVIEW 64 YR OLD MALE [facility]: OVERDOSE. FOUND UNRESPONSIVE. AGONAL BREATHING. 2 EMPTY BOTTLES OF OXYCODONE FOUND AT THE SCENE SI:DRUG OVERDOSE. 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
--- NOTE | 2020-03-01 14:23 | NUR ---
[facility] BULK DRIVER NOTE SW received a consult for home safety evaluation. Pt is currently PUI and on bipap. Per chart review, pt overdosed two bottles of Oxycodone at [facility]. RUDS all negative. Emergency contact listed as pt's , [facility] [phone] SW will attempt to meet w/ pt when he is stable to communicate with this SW.
--- NOTE | 2020-03-01 16:02 | NUR ---
NURSE NOTES: Pt noted with urinary frequency and straining during urination.Dr Greene made aware with new order Flomax 0.4mg daily AND BMP. Bladder scan done 708 cc retention noted. Gaviria catheter inserted and tolerate well. Call light within reach. Observed to remove all devices and Bipap, reeducate and reoriented pt, will continue close monitoring.
[2020-03-01] MEDS ORDERED: Varibar Pudding 230ml MC PRN (16:15)
[2020-03-01] MEDS ORDERED: Varibar Honey 250ml MC PRN (16:15)
[2020-03-01] MEDS ORDERED: Varibar Nectar 240ml MC PRN (16:15)
[2020-03-01] MEDS ORDERED: Varibar Thin Liquid powder 148gm MC PRN (16:15)
--- NOTE | 2020-03-01 16:47 | NUR ---
ST NOTE LANDFILL ATTENDANT ORDERS RECEIVED AND ACKNOWLEDGED FOR BEDSIDE SWALLOW EVALUATION FROM DR. DODGE. Patient is currently in the ICU on BIPAP, aspiration risk given per CXR with RLL infiltrate, leukocytosis, concerning for aspiration PNA-. Also, MD requested a neuro eval and current mental status is questionable. Patient does intermittently remove Bipap mask despite RN education to not remove. LANDFILL ATTENDANT went to bedside, per RN, Patient was requesting for food earlier. Therefore, Patient placed on venti mask and given ice chips and puree to assure safety with PO, RN did not observe any overt s/s of aspiration, therefore, PO diet of soft easy chew with thin liquids placed. RN states Patient noted to destat, and Patient placed back on Bipap. LANDFILL ATTENDANT plans to complete formal bedside swallow evaluation tomorrow 03/01/20 to assure safety with current diet consistency and for dysphagia tx and management with PO intake and Bipap. RN made aware of aspiration precautions, LANDFILL ATTENDANT plan, and Patients oral care needs. Thank you for this referral! LANDFILL ATTENDANT [phone]
[2020-03-01 17:19] LABS: APPEARANCE,URINE CLEAR; BILIRUBIN, URINE NEGATIVE (NEGATIVE); GLUCOSE, URINE (UA) 1+ (NEGATIVE); KETONES,URINE NEGATIVE (NEGATIVE); LEUKOCYTE ESTERASE ,URINE NEGATIVE (NEGATIVE); NITRITE,URINE NEGATIVE (NEGATIVE); PH,URINE 5 (4.5-8.0); PROTEIN,URINE 2+ (NEGATIVE); UROBILINOGEN,URINE NORMAL MG/DL (0.0-1.0)
[2020-03-01 17:22] LABS: COLOR,URINE YELLOW
[2020-03-01 17:27] LABS: ANION GAP 12 mmol/L (5-15); BLOOD UREA NITROGEN 29 mg/dL (7-18); CALCIUM 7.6 MG/DL (8.5-10.1); CARBON DIOXIDE 22 MMOL/L (21-32); CHLORIDE 106 MMOL/L (98-107); CREATININE 1.6 MG/DL (0.55-1.30); POTASSIUM 4.7 MMOL/L (3.5-5.1); SODIUM 140 MMOL/L (136-145)
[2020-03-01] MEDS ORDERED: cefTRIAXone 1 GM in NS 55 ML IVPB SCH (18:00)
--- NOTE | 2020-03-01 18:15 | NUR ---
NURSE NOTES: Help pt turned and repositioned, still noted with episode of non compliance and removal of devices, reeducated and reoriented.HOB elevated to prevent aspiration.Saturate at 96% on BIPAP at 100%,will continue same care plan
--- NOTE | 2020-03-01 19:19 | NUR ---
HAND-OFF: Report given to DANIEL Ann.
--- NOTE | 2020-03-01 20:00 | NUR ---
NURSE NOTES: received report from ildefonso rn pt on b-pap 02/02 100% no c/o of sob and pain reposition him self iv infusing well site good cuevas urenary output good
[2020-03-01] MEDS ORDERED: Tamsulosin 0.4mg cap ORAL SCH (21:00)
--- NOTE | 2020-03-01 22:00 | NUR ---
NURSE NOTES: abg done fio2 <50 % pt tolerated well o2 sat 96-1oo %
[2020-03-02] VITALS (21 sets, daily range): BP systolic 108–158; BP diastolic 56–96
[2020-03-02] MEDS: Piperacillin/Tazobactam 3.375 GM in NS 110 ML IVPB SCH ×3 (05:16→21:39)
[2020-03-02 06:01] LABS: ANION GAP 8 mmol/L (5-15); BLOOD UREA NITROGEN 18 mg/dL (7-18); CALCIUM 7.5 MG/DL (8.5-10.1); CARBON DIOXIDE 26 MMOL/L (21-32); CHLORIDE 107 MMOL/L (98-107); CREATININE 1.1 MG/DL (0.55-1.30); POTASSIUM 3.8 MMOL/L (3.5-5.1); SODIUM 141 MMOL/L (136-145)
--- NOTE | 2020-03-02 07:30 | NUR ---
NURSE NOTES: Report received from DANIEL Smith. Patient awake, alert and oriented x3 with no apparent distress, able to follow commands. SR (90) on the independent driver. Pt received on BiPAP 15/5 40%; saturation noted to be 96%. RAC #20g running NS at 125mL/hr. Pt has a LAC #20g, intact and saline locked. Bed locked and in lowest position. Patient able to self reposition, call light within easy reach. COVID results still pending- will maintain on airborne precautions. Will resume plan of care.
--- NOTE | 2020-03-02 07:34 | NUR ---
HAND-OFF: Report given to ros holt using sbar.
--- NOTE | 2020-03-02 07:45 | NUR ---
NURSE NOTES: Pt placed on 4L NC while eating his breakfast. Pt O2Sat 96% and tolerating well. Reports no breathing difficulty.
--- NOTE | 2020-03-02 09:00 | NUR ---
NURSE NOTES: Pt ate approximately 50% of breakfast, tolerated well. Pt reports being more comfortable on nasal canula. O2sat 94%.
--- NOTE | 2020-03-02 09:17 | Pulmonolgy Critical Care Note ---
Marcela Salmeron SKIN TOGGLER 03/02/20 0917: Critical Care - Asmt/Plan Assessment/Plan: ASSESSMENT Acute toxic metabolic encephalopathy due to OD on narcotic analgesics - resolved Acute hypoxemic hypercapnic respiratory failure, requiring NRM and BiPAP - resolved Sepsis Probably aspiration PNA Acute renal failure, possibly on CKD -resolved Lactic acidosis Transaminitis Suicidal attempt PLAN OF CARE O2 titrate to keep sat above 90% pulm toilet empiric abx /Zosyn fup with cx BCX 02/28 NGTD ABG stable this am on 4L via NC, no hypercapnia CXR for this am pending DVT prophylaxis asp precautions swallow eval IVF monitor renal parameters, lytes avoid nephrotoxics correct lytes as needed creat down to 1.1 decrease IVF rate trend LFT , hep panel psych eval transfer to [place] supportive care case discussed and evaluated by supervising physician Marcela Salmeron SKIN TOGGLER Mar 01, 2020 08:49 Critical Care - Objective Last 24 Hour Vital Signs Date Time Temp Pulse Resp B/P (MAP) Pulse Ox O2 Delivery O2 Flow Rate FiO2 03/02/20 08:00 99.2 99 18 114/58 (76) 95 03/02/20 08:00 Nasal Cannula 4.0 03/02/20 08:00 4.0 03/02/20 07:46 82 15 96 40 03/02/20 07:00 82 16 114/58 (76) 97 03/02/20 06:00 85 13 114/56 (75) 94 03/02/20 05:00 90 16 125/75 (92) 97 03/02/20 04:00 Non-Rebreather 15.0 03/02/20 04:00 95 03/02/20 04:00 40 03/02/20 04:00 98.7 88 16 116/64 (81) 99 03/02/20 03:00 90 16 119/57 (77) 97 03/02/20 02:43 93 24 98 40 03/02/20 02:00 94 16 115/57 (76) 97 03/02/20 01:00 90 19 119/70 (86) 98 03/02/20 00:00 50 03/02/20 00:00 96 03/02/20 00:00 Non-Rebreather 15.0 03/02/20 00:00 98.8 87 5 108/63 (78) 99 03/01/20 23:25 89 23 98 50 03/01/20 23:00 87 0 113/59 (77) 97 03/01/20 22:00 80 03/01/20 22:00 88 4 124/60 (81) 100 03/01/20 21:00 91 0 131/64 (86) 99 03/01/20 20:00 Non-Rebreather 15.0 03/01/20 20:00 100 03/01/20 20:00 95 03/01/20 20:00 98.5 97 17 127/65 (85) 100 03/01/20 19:23 97 22 98 80 03/01/20 19:00 97 9 117/77 (90) 98 03/01/20 18:00 98.3 91 8 113/52 (72) 100 03/01/20 17:00 96 13 112/55 (74) 98 03/01/20 16:00 96 28 127/70 (89) 91 03/01/20 16:00 93 03/01/20 16:00 Non-Rebreather 15.0 03/01/20 15:25 100 21 100 100 03/01/20 15:00 102 28 115/61 (79) 91 03/01/20 14:00 112 105/59 (74) 79 03/01/20 13:00 97 18 104/59 (74) 99 03/01/20 12:00 Non-Rebreather 15.0 03/01/20 12:00 104 03/01/20 12:00 99.8 110 24 112/58 (76) 03/01/20 11:20 97 15 100 100 03/01/20 11:00 105 18 111/63 (79) 93 03/01/20 10:00 103 18 115/60 (78) 91 03/01/20 09:15 103 17 100 100 03/01/20 09:15 99 12 99 Bi-Pap 100 Objective: General Appearance: awake and alert, on O2 via NC Lines, tubes and drains: peripheral HEENT: normocephalic, atraumatic, anicteric Respiratory/Chest: lungs clear, Cardiovascular/Chest: normal rate - SR on tele Abdomen: normal bowel sounds, non tender, soft Extremities: normal capillary refill, no edema Skin Exam: warm/dry, skin tattoos noted Musculoskeletal: normal muscle bulk Micro: Microbiology Date/Time Source Procedure Growth Status 02/29/20 20:40 Blood Blood Culture - Preliminary NO GROWTH AFTER 24 HOURS Resulted 02/29/20 20:25 Blood Blood Culture - Preliminary NO GROWTH AFTER 24 HOURS Resulted 03/01/20 04:35 Rectum Received Critical Care - Subjective Interval Events: now awake, alert, no fevers WBC trending down creat down to 1.1 now on O2 via NC, no signs of resp distress admits OD on pain medications intentional Condition: improving IV Access: peripheral EKG Rhythm: Sinus Rhythm FI02: 40 Vent Support Mode: BiLevel Sputum Amount: None Fluids: NS at 125 I&O: Intake and Output 03/01/20 03/02/20 19:00 07:00 Intake Total 3175.0 ml 2320.0 ml Output Total 1350 ml 1730 ml Balance 1825.0 ml 590.0 ml Intake Oral 470 ml 960 ml IV Total 2705.0 ml 1360.0 ml Output Urine Total 1350 ml 1730 ml # Voids 103 CXR: CXR 02/28 - Right perihilar consolidation, may reflect pneumonia Borderline cardiomegaly Jarad Banuelos MD 03/02/20 1639: Critical Care - Asmt/Plan Assessment/Plan: Patient seen and examined with SKIN TOGGLER. Agree with above A&P as it reflects our joint deliberations. Respiratory: monitor respiratory rate Cardiac: continue to monitor HR/BP Renal: F/U I&O Infectious Disease: continue antibiotics Neurologic: keep patient comfortable Time Spent (Minutes): 40 - cc Marcela Salmeron NP Mar 02, 2020 09:17 Jarad Banuelos MD Mar 02, 2020 16:39
--- NOTE | 2020-03-02 09:45 | Diagnostic Imaging Report ---
Indication: Shortness of breath Technique: One view of the chest Comparison: 02/29/2020 Findings: Interim development of fairly extensive infiltrates in the right lung, mostly peripheral. There is also a very focal nodular infiltrate in the left peripheral lower lung which is not evident previously. The heart is borderline enlarged. Impression: Extensive peripheral right lung infiltrates, likely pneumonia and small nodular left lung infiltrate, developing since prior study of 2 days earlier. Borderline cardiomegaly
[2020-03-02] MEDS: Heparin 5000 units/ml inj SUBQ SCH ×2 (10:07→21:37)
[2020-03-02] MEDS: Docusate 100mg cap ORAL SCH ×2 (10:07→21:38)
--- NOTE | 2020-03-02 10:16 | NUR ---
JOB PLACEMENT COUNSELOR BEDSIDE SWALLOW EVALUATION (please see care activity section for complete report) PATIENT REFERRED FOR BEDSIDE SWALLOW EVALUATION BY DR. DODGE. DYSPHAGIA RISK FACTORS FOR THIS 64 Y.O. MALE: ACUTE ISSUES: Drug overdose, aspiration PNA (CXR with RLL infiltrate, leukocytosis, concerning for aspiration PNA), hypercapnic respiratory failure, Acute Kidney Injury due to pre-renal azotemia, Sepsis, toxic metabolic encephalopathy, PUI COVID 19, transaminitis, lactic acidosis. H/O: N/A. RELEVANT MEDS: Ativan (Agitation). VITALS ON 4L NASAL CANNULA: HR: 88; RR: 18; SP02 95% POLST: Patient is a full code. Patient seen at bedside, is alert and VSS for the duration of the session. Patient did report back of throat pain (pain is +6/10) 2/2 coughing, Patient requesting throat lozenge, RN made aware. Patient previously requiring Bipap therefore, concern for Patients safety with swallowing given now with aspiration PNA. Patient is able to express wants and needs without difficulties, oral motor ROM and coordination is intact. Oral hygiene appears WNL, natural dentition is intact. Patient recently completed breakfast meal of soft easy chew solids with thin liquids, no overt s/s of aspiration per RN and intake was 75%. RN reports no overt s/s of aspiration with medication management. INITIAL IMPRESSIONS: Appears to have a grossly functional swallow, timely and adequate oral preparation and oropharyngeal transit times, adequate rotary mastication, no oral residuals remaining in oral cavity, laryngeal elevation is fair to good. No overt s/s of aspiration with thin liquids or regular solids. -Given Thin Liquids via cup sip, Patient able to complete sequential swallows via cup sip without overt s/s of aspiration, vocal quality remained clear, and laryngeal elevation is fair. -Regular Solids: Timely and adequate rotary mastication, oral preparation times; no residuals, laryngeal elevation is good. No overt s/s of aspiration. NO OVERT S/S OF ASPIRATION, HOWEVER, HAS RISK GIVEN H/O ASPIRATION PNA . Patient's swallowing function appears grossly WFL. No further JOB PLACEMENT COUNSELOR intervention indicated at this time. Patient expressed concern for spouse's wellness given Patient is unable to care for spouse; JOB PLACEMENT COUNSELOR provided Patient encouragement to focus on self and re-direction. Patient appears slightly calmer. RECOMMENDATIONS: 1. Continue Soft Easy chew diet with Thin liquids. -OK to upgrade Patient to regular solids per MD discretion. 2. No further JOB PLACEMENT COUNSELOR intervention indicated at this time as Patient's swallowing function is WNL. JOB PLACEMENT COUNSELOR educated Patient on results, recommendation, and safe swallow strategies JOB PLACEMENT COUNSELOR endorsed results, recommendations, and plan to RN. Thank you for this referral! JOB PLACEMENT COUNSELOR [phone]
--- NOTE | 2020-03-02 10:38 | NUR ---
RADIOLOGY DEPT., CHEST X-RAY DONE.-P.DYE
--- NOTE | 2020-03-02 11:00 | NUR ---
NURSE NOTES: Pt resting comfortably in bed, watching TV. Gave pt toothbrush and tooth paste as requested. No distress noted, no concerns voiced.
--- NOTE | 2020-03-02 13:00 | NUR ---
NURSE NOTES: Pt currently sleeping, after having approximately 50% of lunch. No distress noted. Rt AC #20g infusing NS @ 100mL/hr. On 4L NC; O2Sat 95%
--- NOTE | 2020-03-02 14:36 | Nephrology Progress Note ---
Assessment/Plan Plan #Acute kidney injury due to pre-renal azotemia - on CKD- improved #Sepsis #opiod overdose #hypoxemic resp failure # toxic metabolic encephalopathy # possible aspiration pneumonia - decrease NS to 75 cc/hr - cuevas placed - monitor UOP - COVID rule out - defer renal imaging at this time - antibiotics per ID - monitor BMP, mag and phos daily - avoid nephrotoxins - strict I&Os - daily weights time spent 35min Subjective ROS Limited/Unobtainable: Yes Subjective Lethargic cuevas placed for urinary retention Cr downtrending BP stable afeb satting well on NC Objective Objective Last 24 Hour Vital Signs Date Time Temp Pulse Resp B/P (MAP) Pulse Ox O2 Delivery O2 Flow Rate FiO2 03/02/20 13:00 87 19 130/74 (92) 92 03/02/20 12:00 Nasal Cannula 4.0 03/02/20 12:00 4.0 03/02/20 12:00 98.8 82 10 119/64 (82) 91 03/02/20 11:00 82 16 120/75 (90) 94 03/02/20 10:00 87 16 115/77 (90) 95 03/02/20 09:00 84 11 115/77 (90) 94 03/02/20 08:00 99.2 99 18 114/58 (76) 95 03/02/20 08:00 Nasal Cannula 4.0 03/02/20 08:00 4.0 03/02/20 07:46 82 15 96 40 03/02/20 07:00 82 16 114/58 (76) 97 03/02/20 06:00 85 13 114/56 (75) 94 03/02/20 05:00 90 16 125/75 (92) 97 03/02/20 04:00 Non-Rebreather 15.0 03/02/20 04:00 95 03/02/20 04:00 40 03/02/20 04:00 98.7 88 16 116/64 (81) 99 03/02/20 03:00 90 16 119/57 (77) 97 03/02/20 02:43 93 24 98 40 03/02/20 02:00 94 16 115/57 (76) 97 03/02/20 01:00 90 19 119/70 (86) 98 03/02/20 00:00 50 03/02/20 00:00 96 03/02/20 00:00 Non-Rebreather 15.0 03/02/20 00:00 98.8 87 5 108/63 (78) 99 03/01/20 23:25 89 23 98 50 03/01/20 23:00 87 0 113/59 (77) 97 03/01/20 22:00 80 03/01/20 22:00 88 4 124/60 (81) 100 03/01/20 21:00 91 0 131/64 (86) 99 03/01/20 20:00 Non-Rebreather 15.0 03/01/20 20:00 100 03/01/20 20:00 95 03/01/20 20:00 98.5 97 17 127/65 (85) 100 03/01/20 19:23 97 22 98 80 03/01/20 19:00 97 9 117/77 (90) 98 03/01/20 18:00 98.3 91 8 113/52 (72) 100 03/01/20 17:00 96 13 112/55 (74) 98 03/01/20 16:00 96 28 127/70 (89) 91 03/01/20 16:00 93 03/01/20 16:00 Non-Rebreather 15.0 03/01/20 15:25 100 21 100 100 03/01/20 15:00 102 28 115/61 (79) 91 Intake and Output 03/01/20 03/02/20 19:00 07:00 Intake Total 3175.0 ml 2445.0 ml Output Total 1350 ml 1730 ml Balance 1825.0 ml 715.0 ml Intake Oral 470 ml 960 ml IV Total 2705.0 ml 1485.0 ml Output Urine Total 1350 ml 1730 ml # Voids 103 Laboratory Tests 03/01/20 15:00: Urine Random Sodium 75, Urine Creatinine 116.8 03/01/20 16:20: Sodium Level 140, Potassium Level 4.7, Chloride Level 106, Carbon Dioxide Level 22, Anion Gap 12, Blood Urea Nitrogen 29H, Creatinine 1.6H, Estimat Glomerular Filtration Rate 43.5, Glucose Level 155H, Lactic Acid Level 2.60H, Calcium Level 7.6L 03/01/20 16:50: Urine Color Yellow, Urine Appearance Clear, Urine pH 5, Urine Specific [place] 1.020, Urine Protein 2+H, Urine Glucose (UA) 1+H, Urine Ketones Negative, Urine Blood 2+H, Urine Nitrite Negative, Urine Bilirubin Negative, Urine Urobilinogen Normal, Urine Leukocyte Esterase Negative, Urine RBC 0-2H, Urine WBC 0-2, Urine Squamous Epithelial Cells None, Urine Bacteria Few 03/01/20 22:20: Lactic Acid Level 1.40 03/01/20 22:31: Arterial Blood pH 7.310L, Arterial Blood Partial Pressure CO2 47.9H, Arterial Blood Partial Pressure O2 179.4H, Arterial Blood HCO3 23.8, Arterial Blood Oxygen Saturation 98.8, Arterial Blood Base Excess -2.7L, Frankie Test Positive 03/02/20 04:40: Sodium Level 141, Potassium Level 3.8, Chloride Level 107, Carbon Dioxide Level 26, Anion Gap 8, Blood Urea Nitrogen 18, Creatinine 1.1, Estimat Glomerular Filtration Rate > 60, Glucose Level 104, Calcium Level 7.5L, Magnesium Level 1.9 03/02/20 07:30: Arterial Blood pH 7.336L, Arterial Blood Partial Pressure CO2 44.0, Arterial Blood Partial Pressure O2 73.1L, Arterial Blood HCO3 23.0, Arterial Blood Oxygen Saturation 94.1L, Arterial Blood Base Excess -2.9L, Frankie Test Positive Height (Feet): 5 Height (Inches): 7.00 Weight (Pounds): 250 General Appearance: lethargic EENT: PERRL/EOMI, normal ENT inspection Neck: non-tender, normal alignment Cardiovascular: normal peripheral pulses, normal rate, regular rhythm Respiratory/Chest: chest wall non-tender, lungs clear Extremities: normal range of motion, non-tender Tong Greene M.D. Mar 02, 2020 14:36
--- NOTE | 2020-03-02 15:00 | NUR ---
HAND-OFF: Report given to DANIEL Snow.
--- NOTE | 2020-03-02 15:05 | NUR ---
NURSE NOTES: Received hand off report from Dara SANCHEZ. Pt is asleep, awakens to voice/name, oriented x3. Pt is currently on 4L of oxygen via nasal cannula at 95% O2Sat. NSR on monitor tech, HR at 75. Temp 98.6F axillary. Denies pain or any other discomfort at this time. VS remain stable. NS is infusing at 100ml/hour. Gaviria catheter is present, draining clear/yellow urine to gravity. Skin is intact. HOB at semi-orellana's, bed locked, in lowest position, three side rails up and call light is placed within easy reach. Will continue with plan of care.
--- NOTE | 2020-03-02 15:26 | General Progress Note ---
Assessment/Plan Problem List: (1) Drug overdose ICD Codes: T50.901A - Poisoning by unspecified drugs, medicaments and biological substances, accidental (unintentional), initial encounter SNOMED: 42625675 Qualifiers: Qualified Codes: T50.901A - Poisoning by unspecified drugs, medicaments and biological substances, accidental (unintentional), initial encounter (2) Pneumonia ICD Codes: J18.9 - Pneumonia, unspecified organism SNOMED: 209865560 Qualifiers: Qualified Codes: J18.9 - Pneumonia, unspecified organism (3) Suicide attempt ICD Codes: T14.91XA - Suicide attempt, initial encounter SNOMED: [id number] Status: stable Assessment/Plan: Mr. Chen is a 64 year old male with no prior PMHx, presenting with a oxycodone overdose s/p narcane, also found to have likely aspirational PNA and hypercapneic resp failure. #Drug overdose #Suicidal attempt -Patient initially denied SI/SA, but now he's more alert, reports that he tried to commit suicide by overdosing on 's oxycontin. -Psych consult placed. appreciate recs. -Patient also homeless, needs SW eval (placed)/ -monitor vitals and signs of withdrawal. -Utox otherwise negative. #Hypercapneic respiratory failure - improving #Aspiration PNA #Sepsis -CXR with RLL infiltrate, leukocytosis, concerning for aspiration PNA -serial ABG's with improvement. -continue zosyn (03/01 - ) -pulmonary toilet. -passed swallow eval -> tolerating diet. #Acute urinary retention -noted to be retaining 03/01. however, in setting of acute illness. -voiding trial in next few days. Time spent on encounter, 38 mins, 20 mins on counseling and coordination of care. Time of note doesn't reflect time of encounter. Subjective Date patient seen: Mar 02, 2020 ROS Limited/Unobtainable: No Constitutional: Denies: no symptoms, chills, diaphoresis, fever, malaise, weakness, other HEENT: Denies: no symptoms, eye pain, blurred vision, tearing, double vision, ear pain, ear discharge, nose pain, nose congestion, throat pain, throat swelling, mouth pain, mouth swelling, other Cardiovascular: Denies: no symptoms, chest pain, edema, irregular heart rate, lightheadedness, palpitations, syncope, other Respiratory: Reports: cough Gastrointestinal/Abdominal: Denies: no symptoms, abdomen distended, abdominal pain, black stools, tarry stools, blood in stool, constipated, diarrhea, difficulty swallowing, nausea, poor appetite, poor fluid intake, rectal bleeding , vomiting, other Genitourinary: Denies: no symptoms, burning, discharge, frequency, flank pain, hematuria, incontinence, pain, urgency, other Neurologic/Psychiatric: Reports: depressed Endocrine: Denies: no symptoms, excessive sweating, flushing, intolerance to cold, intolerance to heat, increased hunger, increased thirst, increased urine, unexplained weight gain, unexplained weight loss, other Hematologic/Lymphatic: Denies: no symptoms, anemia, easy bleeding, easy bruising, other Allergies: Coded Allergies: No Known Allergies (Unverified , 03/02/20) Subjective resting in bed, complaining of mild cough, SOB. no fever, chills. reports that he had tried to kill himself by OD'ing on oxycontin. oxycontin belongs to , who has been hospitalize for 1.5 years. He is currently homeless, and has been motel-hopping. Objective Last 24 Hour Vital Signs Date Time Temp Pulse Resp B/P (MAP) Pulse Ox O2 Delivery O2 Flow Rate FiO2 03/02/20 14:00 78 14 127/70 (89) 96 03/02/20 13:00 87 19 130/74 (92) 92 03/02/20 12:00 Nasal Cannula 4.0 03/02/20 12:00 4.0 03/02/20 12:00 82 03/02/20 12:00 98.8 82 10 119/64 (82) 91 03/02/20 11:00 82 16 120/75 (90) 94 03/02/20 10:00 87 16 115/77 (90) 95 03/02/20 09:00 84 11 115/77 (90) 94 03/02/20 08:00 99.2 99 18 114/58 (76) 95 03/02/20 08:00 Nasal Cannula 4.0 03/02/20 08:00 4.0 03/02/20 08:00 91 03/02/20 07:46 82 15 96 40 03/02/20 07:00 82 16 114/58 (76) 97 03/02/20 06:00 85 13 114/56 (75) 94 03/02/20 05:00 90 16 125/75 (92) 97 03/02/20 04:00 Non-Rebreather 15.0 03/02/20 04:00 95 03/02/20 04:00 40 03/02/20 04:00 98.7 88 16 116/64 (81) 99 03/02/20 03:00 90 16 119/57 (77) 97 03/02/20 02:43 93 24 98 40 03/02/20 02:00 94 16 115/57 (76) 97 03/02/20 01:00 90 19 119/70 (86) 98 03/02/20 00:00 50 03/02/20 00:00 96 03/02/20 00:00 Non-Rebreather 15.0 03/02/20 00:00 98.8 87 5 108/63 (78) 99 03/01/20 23:25 89 23 98 50 03/01/20 23:00 87 0 113/59 (77) 97 03/01/20 22:00 80 03/01/20 22:00 88 4 124/60 (81) 100 03/01/20 21:00 91 0 131/64 (86) 99 03/01/20 20:00 Non-Rebreather 15.0 03/01/20 20:00 100 03/01/20 20:00 95 03/01/20 20:00 98.5 97 17 127/65 (85) 100 03/01/20 19:23 97 22 98 80 03/01/20 19:00 97 9 117/77 (90) 98 03/01/20 18:00 98.3 91 8 113/52 (72) 100 03/01/20 17:00 96 13 112/55 (74) 98 03/01/20 16:00 96 28 127/70 (89) 91 03/01/20 16:00 93 03/01/20 16:00 Non-Rebreather 15.0 03/01/20 15:25 100 21 100 100 Intake and Output 03/01/20 03/02/20 19:00 07:00 Intake Total 3175.0 ml 2445.0 ml Output Total 1350 ml 1730 ml Balance 1825.0 ml 715.0 ml Intake Oral 470 ml 960 ml IV Total 2705.0 ml 1485.0 ml Output Urine Total 1350 ml 1730 ml # Voids 103 Laboratory Tests 03/01/20 16:20: Sodium Level 140, Potassium Level 4.7, Chloride Level 106, Carbon Dioxide Level 22, Anion Gap 12, Blood Urea Nitrogen 29H, Creatinine 1.6H, Estimat Glomerular Filtration Rate 43.5, Glucose Level 155H, Lactic Acid Level 2.60H, Calcium Level 7.6L 03/01/20 16:50: Urine Color Yellow, Urine Appearance Clear, Urine pH 5, Urine Specific [place] 1.020, Urine Protein 2+H, Urine Glucose (UA) 1+H, Urine Ketones Negative, Urine Blood 2+H, Urine Nitrite Negative, Urine Bilirubin Negative, Urine Urobilinogen Normal, Urine Leukocyte Esterase Negative, Urine RBC 0-2H, Urine WBC 0-2, Urine Squamous Epithelial Cells None, Urine Bacteria Few 03/01/20 22:20: Lactic Acid Level 1.40 03/01/20 22:31: Arterial Blood pH 7.310L, Arterial Blood Partial Pressure CO2 47.9H, Arterial Blood Partial Pressure O2 179.4H, Arterial Blood HCO3 23.8, Arterial Blood Oxygen Saturation 98.8, Arterial Blood Base Excess -2.7L, Frankie Test Positive 03/02/20 04:40: Sodium Level 141, Potassium Level 3.8, Chloride Level 107, Carbon Dioxide Level 26, Anion Gap 8, Blood Urea Nitrogen 18, Creatinine 1.1, Estimat Glomerular Filtration Rate > 60, Glucose Level 104, Calcium Level 7.5L, Magnesium Level 1.9 03/02/20 07:30: Arterial Blood pH 7.336L, Arterial Blood Partial Pressure CO2 44.0, Arterial Blood Partial Pressure O2 73.1L, Arterial Blood HCO3 23.0, Arterial Blood Oxygen Saturation 94.1L, Arterial Blood Base Excess -2.9L, Frankie Test Positive Height (Feet): 5 Height (Inches): 7.00 Weight (Pounds): 250 General Appearance: no apparent distress, alert EENT: PERRL/EOMI Neck: normal alignment, supple Cardiovascular: normal rate, regular rhythm Respiratory/Chest: lungs clear, normal breath sounds Abdomen: non tender, soft Extremities: non-tender Neurologic: alert, oriented x 3 Jose Harman MD Mar 02, 2020:26
--- NOTE | 2020-03-02 16:26 | NUR ---
CASE MANAGEMENT: REVIEW 03/02/2020 SI:DRUG OVERDOSE. PNEUMONIA VS: T 98.8 HR 82 RR 10 B/P 119/64 SATS 91% ON 4L/NC LABS: CA 7.5 ABGs PH 7.336 PO2 73.1 O2 SAT 94.1 BE -2.9 IS: NS @ 100 ML/HR ZOSYN IV Q8H FLOMAX PO QHS : ICU UNIT DCP: OLU PLAN OF CARE: DOWNGRADE TO MED/SURG PSYCH CONSULT
--- NOTE | 2020-03-02 16:56 | NUR ---
ZIGZAG ELASTIC ATTACHER NOTE SW spoke w/ pt and assessed pt's needs. Pt presents as A&O4x and depressed. Pt has been homeless since May 2019. Pt has been staying at a motel. 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 PT was frustrated that his business is closed d/t COVID-19. PT's had a surgery and is currently at the assisted. Pt reports he has been depressed and does not receive mental health service at this time. RUDS all negative. PT denies substance/ETOH/tobacco use. PT currently denies having suicidal thought. Emergency contact: Genet Castanon () [phone] Pt is ambulatory w/o DMEs and independent w/ ADLs. PT currently does not have any income as his business is closed. Pt agreed to be referred to [facility]. [phone] and made the referral. ID: [id number] @ [facility] There is no bed available at this time. Pt is currently on waitlist. SW needs to F/U. *COVID result is pending. Pt will need COVID negative result in order to be placed at [facility].
--- NOTE | 2020-03-02 17:00 | NUR ---
NURSE NOTES: Pt was seen by Dr. Banuelos and Dr. Del Real. No new orders were received at this time. Currently order in place to transfer pt to [facility]. Charge nurse and spvsr aware. Awaiting for bed placement. Addendum: 03/02/20 at 1938 by LAKIA BARRY RN Per MD chicas to keep pt on nasal cannula since pt is tolerating well with improved O2Sat.
--- NOTE | 2020-03-02 18:30 | NUR ---
NURSE NOTES: Pt was administered Tylenol per PRN order for pain, as pt states "I have sore throat". VS remain stable. Received room assignment for pt to be transferred to [facility] 419. Will endorse to next shift.
--- NOTE | 2020-03-02 19:00 | NUR ---
NURSE NOTES: Contacted pt's next of kin, , Genet Castanon at [phone] and left voicemail regarding pt being transferred to [facility], per request to update regarding transfer status.
--- NOTE | 2020-03-02 19:30 | NUR ---
HAND-OFF: Report given to Oliver SANCHEZ. VS remain stable. Endorsed plan of care, including transfer to Med Surg RM-419.
--- NOTE | 2020-03-02 19:40 | NUR ---
NURSE NOTES: LE: PATIENT AWOKE, ALERT, ORIENTED, DENIED PAIN OR SOB, ON O2 4 LPM VIA NC, O2 SATURATION 98% NOTED.
--- NOTE | 2020-03-02 20:00 | NUR ---
TRANSFER TO FLOOR: Patient transferred to med/sug room 419-2 via hospital bed under covid transfer policy. Report given to ROLAND,RN. Belongings and medications given to receiving nurse and ptient was aware. Family ()informed of transfer.
[2020-03-02] MEDS ORDERED: LORazepam Inj 2mg/ml 1ml IV PRN (21:00)
--- NOTE | 2020-03-02 21:30 | NUR ---
NURSE NOTES: PATIENT WAS SAFELY TRANSFERRED TO UNIT VIA HOSPITAL BED FROM ICU. REPORT RECEIVED FROM DANIEL MYERS. PATIENT IS AWAKE, AAOX4, ON NL 4L, 02 97%. NON-PRODUCTIVE COUGH NOTED. PATIENT DENIES SOB. REMOVED PREVIOUS PIVS PER LEAKING, INSERTED NEW IV ON LEFT THUMB 24G INTACT AND PATENT. CABEZAS IS IN PLACE, DRAINING WELL, CABEZAS ANCHOR PRESENT. SKIN IS INTACT. BED IS LOCKED AND LOW, BED ALARMS ACTIVE, SIDE RAILS UP X2 AND CALL LIGHT IS WITHIN REACH. WILL CONTINUE TO MONITOR.
[2020-03-02] MEDS: Tamsulosin 0.4mg cap ORAL SCH (21:38)
[2020-03-02] MEDS ORDERED: Acetaminophen 650 MG SUPP RECTAL PRN ×2 (21:45)
[2020-03-02] MEDS ORDERED: Miralax 17gm pkt ORAL PRN (21:45)
[2020-03-02] MEDS ORDERED: Milk of Magnesia 30ml Ud ORAL PRN (21:45)
[2020-03-03] VITALS: BP 130/78
[2020-03-03 04:00] VITALS: BP 134/76
--- NOTE | 2020-03-03 07:14 | Pulmonology Progress Note ---
Marcela Salmeron FURNITURE PAINTER 03/03/20 0714: Subjective ROS Limited/Unobtainable: Yes Allergies: Coded Allergies: No Known Allergies (Unverified , 03/02/20) Subjective transferred to [place] on 4L o2 via NC leuk resolved, afebrile had epistaxis earlier and spit up bloody mucosal drainage, currently stopped HH stable reports nausea Objective Last 24 Hour Vital Signs Date Time Temp Pulse Resp B/P (MAP) Pulse Ox O2 Delivery O2 Flow Rate FiO2 03/03/20 00:00 Nasal Cannula 4.0 03/03/20 00:00 98.8 98 19 130/78 (95) 96 03/02/20 20:00 Nasal Cannula 4.0 03/02/20 20:00 98.2 82 18 158/96 (116) 96 03/02/20 19:05 98.7 03/02/20 19:00 98 Nasal Cannula 4.0 36 03/02/20 19:00 83 24 148/81 (103) 97 03/02/20 18:00 80 18 135/82 (99) 98 03/02/20 17:00 82 19 126/87 (100) 96 03/02/20 16:00 Nasal Cannula 4.0 03/02/20 16:00 98.7 86 16 136/66 (89) 87 03/02/20 16:00 87 03/02/20 16:00 4.0 03/02/20 15:00 79 14 118/59 (78) 96 03/02/20 14:00 78 14 127/70 (89) 96 03/02/20 13:00 87 19 130/74 (92) 92 03/02/20 12:00 Nasal Cannula 4.0 03/02/20 12:00 4.0 03/02/20 12:00 82 03/02/20 12:00 98.8 82 10 119/64 (82) 91 03/02/20 11:00 82 16 120/75 (90) 94 03/02/20 10:00 87 16 115/77 (90) 95 03/02/20 09:00 84 11 115/77 (90) 94 03/02/20 08:00 99.2 99 18 114/58 (76) 95 03/02/20 08:00 Nasal Cannula 4.0 03/02/20 08:00 4.0 03/02/20 08:00 91 03/02/20 07:46 82 15 96 40 Intake and Output 03/02/20 03/03/20 19:00 07:00 Intake Total 2411.75 ml 1115.0 ml Output Total 1630 ml 200 ml Balance 781.75 ml 915.0 ml Intake Oral 1360 ml 480 ml IV Total 1051.75 ml 635.0 ml Output Urine Total 1630 ml 200 ml # Voids 200 Objective General Appearance: awake and alert, on O2 via NC Lines, tubes and drains: peripheral HEENT: normocephalic, atraumatic, anicteric Respiratory/Chest: lungs clear, Cardiovascular/Chest: normal rate - SR on tele Abdomen: normal bowel sounds, non tender, soft Extremities: normal capillary refill, no edema Skin Exam: warm/dry, skin tattoos noted Musculoskeletal: normal muscle bulk Microbiology Date/Time Source Procedure Growth Status 02/29/20 20:40 Blood Blood Culture - Preliminary NO GROWTH AFTER 48 HOURS Resulted 02/29/20 20:25 Blood Blood Culture - Preliminary NO GROWTH AFTER 48 HOURS Resulted 03/01/20 04:35 Rectum - Final NO CARBAPENEM-RESISTANT ENTEROBACTERI... Complete 03/01/20 04:35 Rectum VRE Culture - Final NO VANCOMYCIN RESISTANT ENTEROCOCCUS ... Complete Laboratory Tests 03/02/20 07:30: Arterial Blood pH 7.336L, Arterial Blood Partial Pressure CO2 44.0, Arterial Blood Partial Pressure O2 73.1L, Arterial Blood HCO3 23.0, Arterial Blood Oxygen Saturation 94.1L, Arterial Blood Base Excess -2.9L, Frankie Test Positive 03/03/20 04:00: White Blood Count [Pending], Red Blood Count [Pending], Hemoglobin [Pending], Hematocrit [Pending], Mean Corpuscular Volume [Pending], Mean Corpuscular Hemoglobin [Pending], Mean Corpuscular Hemoglobin Concent [Pending], Red Cell Distribution Width [Pending], Platelet Count [Pending], Mean Platelet Volume [ Pending], Neutrophils (%) (Auto) [Pending], Lymphocytes (%) (Auto) [Pending], Monocytes (%) (Auto) [Pending], Eosinophils (%) (Auto) [Pending], Basophils (%) (Auto) [Pending], Sodium Level [Pending], Potassium Level [Pending], Chloride Level [Pending], Carbon Dioxide Level [Pending], Blood Urea Nitrogen [Pending], Creatinine [Pending], Estimat Glomerular Filtration Rate [Pending], Glucose Level [Pending], Calcium Level [Pending], Phosphorus Level [Pending], Magnesium Level [Pending], Total Bilirubin [Pending], Aspartate Amino Transf (AST/SGOT) [ Pending], Alanine Aminotransferase (ALT/SGPT) [Pending], Alkaline Phosphatase [ Pending], Total Protein [Pending], Albumin [Pending], Globulin [Pending], Hepatitis A IgM Antibody [Pending], Hepatitis B Surface Antigen [Pending], Hepatitis B Core IgM Antibody [Pending], Hepatitis C Antibody [Pending] Current Medications Medications (Trade) Dose Ordered Sig/Zan Route PRN Reason Start Time Stop Time Status Last Admin Dose Admin Acetaminophen (Tylenol) 650 mg Q4H PRN ORAL Mild Pain (Pain Scale 1-3) 03/02/20 21:45 03/30/20 21:44 Acetaminophen (Tylenol) 650 mg Q4H PRN ORAL Temp >100.5 03/02/20 21:45 03/30/20 21:44 Acetaminophen (Tylenol) 650 mg Q4H PRN RECTAL Mild Pain (Pain Scale 1-3) 03/02/20 21:45 03/30/20 21:44 Acetaminophen (Tylenol) 650 mg Q4H PRN RECTAL Temp >100.5 03/02/20 21:45 03/30/20 21:44 Bisacodyl (Dulcolax) 10 mg HSPRN PRN RECTAL Constipation 03/02/20 21:45 05/29/20 21:44 Cetylpyridinium Chloride (Cepacol) 1 lozg Q2H PRN MAINOR For Cough 03/02/20 21:00 05/31/20 08:59 Dextrose (Dextrose 50%) 25 ml Q30M PRN IV Hypoglycemia 03/02/20 20:45 05/29/20 21:44 Dextrose (Dextrose 50%) 50 ml Q30M PRN IV Hypoglycemia 03/02/20 20:45 05/29/20 21:44 Docusate Sodium (Colace) 100 mg EVERY 12 HOURS ORAL 03/02/20 21:00 03/31/20 08:59 03/02/20 21:38 Escitalopram Oxalate (Lexapro) 10 mg DAILY ORAL 03/03/20 09:00 04/02/20 08:59 Heparin Sodium (Porcine) (Heparin 5000 units/ml) 5,000 units EVERY 12 HOURS SUBQ 03/02/20 21:00 04/15/20 08:59 03/02/20 21:37 Lorazepam (Ativan 2mg/ml 1ml) 0.5 mg Q4H PRN IV Agitation 03/02/20 21:00 03/07/20 20:59 Magnesium Hydroxide (Mom) 30 ml HSPRN PRN ORAL Constipation 03/02/20 21:45 03/30/20 21:44 Ondansetron HCl (Zofran) 4 mg Q6H PRN IVP Nausea & Vomiting 03/02/20 21:00 03/30/20 20:59 Piperacillin Sod/ Tazobactam Sod 3.375 gm/Sodium Chloride 110 ml @ 27.5 mls/hr EVERY 8 HOURS IVPB 03/02/20 22:00 03/06/20 13:59 03/02/20 21:39 Polyethylene Glycol (Miralax) 17 gm HSPRN PRN ORAL Constipation 03/02/20 21:45 03/30/20 21:44 Sodium Chloride 1,000 ml @ 75 mls/hr [id number] IVLG 03/02/20 21:30 04/01/20 21:29 03/02/20 21:38 Tamsulosin HCl (Flomax) 0.4 mg BEDTIME ORAL 03/02/20 21:00 03/31/20 20:59 03/02/20 21:38 Assessment/Plan Assessment/Plan ASSESSMENT Acute toxic metabolic encephalopathy due to OD on narcotic analgesics - resolved Acute hypoxemic hypercapnic respiratory failure, requiring NRM and BiPAP - resolved Sepsis Probably aspiration PNA Acute renal failure, possibly on CKD -resolved Lactic acidosis Transaminitis Suicidal attempt PLAN OF CARE MS floor O2 titrate to keep sat above 90% pulm toilet empiric abx /Zosyn fup with cx BCX 01/28 NGTD SARS COV2 by ELIANA 03/01 not detected on 4L via NC, titrate to keep sat above 90%, humidify O2 CXR 03/02 Extensive peripheral right lung infiltrates, likely pneumonia and small nodular left lung infiltrate, developing since prior study of 2 days earlier. DVT prophylaxis asp precautions swallow eval IVF monitor renal parameters, lytes avoid nephrotoxics correct lytes as needed , P today creat down to 1.1 decrease IVF rate trend LFT , hep panel psych eval supportive care case discussed and evaluated by supervising physician Jarad Banuelos MD 03/03/20 1557: Subjective Allergies: Coded Allergies: No Known Allergies (Unverified , 03/02/20) Assessment/Plan Assessment/Plan Patient seen and examined with FURNITURE PAINTER. Agree with above A&P as it reflects our joint deliberations. Marcela Salmeron NP Mar 03, 2020 07:14 Jarad Banuelos MD Mar 03, 2020 15:57
[2020-03-03 07:19] LABS: BASOPHILS % (AUTO) 0.4 % (0.0-2.0); EOSINOPHILS % (AUTO) 0.7 % (0.0-3.0); HEMATOCRIT 38.9 % (42.0-52.0); HEMOGLOBIN 13.1 G/DL (14.2-18.0); LYMPHOCYTES % (AUTO) 12.8 % (20.0-45.0); MEAN CORPUSCULAR VOLUME 97 FL (80-99); MONOCYTES % (AUTO) 4.5 % (1.0-10.0); NEUTROPHILS % (AUTO) 81.5 % (45.0-75.0); PLATELET COUNT 112 K/UL (150-450); RED BLOOD COUNT 4.03 M/UL (4.70-6.10); RED CELL DISTRIBUTION WIDTH 11.3 % (11.6-14.8); WHITE BLOOD COUNT 8.3 K/UL (4.8-10.8)
[2020-03-03] MEDS: Piperacillin/Tazobactam 3.375 GM in NS 110 ML IVPB SCH ×3 (07:20→21:39)
[2020-03-03 07:27] LABS: ANION GAP 4 mmol/L (5-15); BLOOD UREA NITROGEN 8 mg/dL (7-18); CALCIUM 8.2 MG/DL (8.5-10.1); CARBON DIOXIDE 32 MMOL/L (21-32); CHLORIDE 103 MMOL/L (98-107); CREATININE 0.8 MG/DL (0.55-1.30); PHOSPHORUS 1.8 MG/DL (2.5-4.9); POTASSIUM 3.7 MMOL/L (3.5-5.1); SODIUM 139 MMOL/L (136-145)
[2020-03-03 07:35] LABS: ALANINE AMINOTRANSFERASE 49 U/L (12-78); ALBUMIN 2.8 G/DL (3.4-5.0); ALBUMIN/GLOBULIN RATIO 0.9 (1.0-2.7); ALKALINE PHOSPHATASE 47 U/L (46-116); ANION GAP 4 mmol/L (5-15); ASPARTATE AMINO TRANSFERASE 32 U/L (15-37); BILIRUBIN,TOTAL 0.7 MG/DL (0.2-1.0); BLOOD UREA NITROGEN 8 mg/dL (7-18); CALCIUM 8.3 MG/DL (8.5-10.1); CARBON DIOXIDE 32 MMOL/L (21-32); CHLORIDE 103 MMOL/L (98-107); CREATININE 0.8 MG/DL (0.55-1.30); POTASSIUM 3.7 MMOL/L (3.5-5.1); SODIUM 139 MMOL/L (136-145)
[2020-03-03 08:00] VITALS: BP 142/75
--- NOTE | 2020-03-03 08:00 | NUR ---
NURSE NOTES: received report from Farhana,RN. patient in bed. a&ox4, verbally responsive. no respiratory distress noted. no pain at this time. F/C inserted on 02/29/20 d/t acute retention draining well. yellow. no hematuria noted. IV on Left thumb running ns@75/hr. contact and droplet isolation d/t PUI covid 19. swab done on 02/29/20 pending result. ambulatory. no suicide ideation at this time. bed in the lowest position and locked. call light within reach. will continue to provide plan of care.
--- NOTE | 2020-03-03 08:18 | NUR ---
HAND-OFF: Report given to DANIEL Calhoun.
[2020-03-03] MEDS: Docusate 100mg cap ORAL SCH ×2 (08:42→20:43)
[2020-03-03] MEDS: Heparin 5000 units/ml inj SUBQ SCH ×2 (08:42→20:51)
[2020-03-03] MEDS ORDERED: Tubing IV Secondary IV ONE (08:53)
--- NOTE | 2020-03-03 10:00 | NUR ---
NURSE NOTES: patient had nosebleed and vomited bloody saliva. patient said this was first episode and he felt nauseated and discomfort. nose was dry. seen by Marcela marmolejo NP. hgb 13.1 today. new order of titrate o2 with humidify to maintain >90%. called RT for ordering humidify. cleaned the patient. given Zofran 4mg IVP as ordered. will continue to monitor the patient condition.
--- NOTE | 2020-03-03 10:30 | NUR ---
NURSE NOTES: patient feels comfortable now. no vomit or nosebleed at this time.
--- NOTE | 2020-03-03 11:45 | Consultation ---
DATE OF CONSULTATION: 03/03/2020 CONSULTING PHYSICIAN: Ashia Del Real M.D. HISTORY OF PRESENT ILLNESS: The patient is a 64-year-old male with a history of depression, which has been diagnosed by a psychiatrist who has overdosed on opiates. He stated that he took his 's oxycodone. His in the sni. Calm and cooperative. No behavioral issues noted. Able to answer the question. He stated that he has been depressed for the past month as his has been year. He stated that he is doing well and "bounced back." The patient to take in the motel and the motel personal found the patient unconscious and called 911. The patient is denying any suicidal or homicidal ideation. The patient also is cooperative and answering the questions appropriately. PAST PSYCHIATRIC HISTORY: Denies psychiatric hospitalization. Denies suicide attempt. Denies seeing a psychiatrist. PAST MEDICAL HISTORY: Significant for pneumonia and obesity. ALLERGIES: No known drug allergies. SUBSTANCE ABUSE HISTORY: No known history of illicit drug use or alcohol. MENTAL STATUS EXAMINATION: The patient is alert and oriented times self, place, situation, and date. Mood is slightly irritable. Affect is constricted with congruent with mood. Thought process is concrete. Thought content, no suicidal or homicidal ideation. Cognition is intact. Insight and judgment are fair. ASSESSMENT: AXIS I: Major depressive disorder. AXIS II: Deferred. AXIS III: As above. AXIS IV: Low. AXIS V: 25. PLAN: 1. We will start the patient on Lexapro. 2. The patient is not an imminent danger to self or others. 3. We will continue to follow and readjust the medications. 4. The patient should be discharged when medically stable. Ashia Del Real M.D. DR: HEMANT JOB#: [id number] CC: AYAAN
[2020-03-03 12:00] VITALS: BP 144/73
[2020-03-03] MEDS: Phospha 250 Neutral tab ORAL SCH ×2 (12:29→17:18)
--- NOTE | 2020-03-03 15:13 | NUR ---
NURSE NOTES: patient covid test resulted was negative. notified and received order DC isolation. Notified DR. Banuelos regarding patient had an episode of nose bleeding and vomiting with bloody saliva. MD ordered call Dr. Jose Harman. order noted and carried out.
--- NOTE | 2020-03-03 15:45 | NUR ---
NURSE NOTES: notified Kimani Love regarding nose bleeding and vomiting. Dr. yun is not at [facility] [place] anymore.
[2020-03-03 16:00] VITALS: BP 126/76
[2020-03-03] MEDS ORDERED: Varibar Pudding 230ml MC PRN (16:15)
[2020-03-03] MEDS ORDERED: Varibar Thin Liquid powder 148gm MC PRN (16:15)
[2020-03-03] MEDS ORDERED: Varibar Honey 250ml MC PRN (16:15)
[2020-03-03] MEDS ORDERED: Varibar Nectar 240ml MC PRN (16:15)
--- NOTE | 2020-03-03 17:11 | Internal Med Progress Note ---
Subjective Date of Service: Mar 03, 2020 Physician Name Lucero Nolasco Attending Physician Jarad Banuelos MD Current Medications Medications (Trade) Dose Ordered Sig/Zan Route PRN Reason Start Time Stop Time Status Last Admin Dose Admin Acetaminophen (Tylenol) 650 mg Q4H PRN ORAL Mild Pain (Pain Scale 1-3) 03/02/20 21:45 03/30/20 21:44 Acetaminophen (Tylenol) 650 mg Q4H PRN ORAL Temp >100.5 03/02/20 21:45 03/30/20 21:44 Acetaminophen (Tylenol) 650 mg Q4H PRN RECTAL Mild Pain (Pain Scale 1-3) 03/02/20 21:45 03/30/20 21:44 Acetaminophen (Tylenol) 650 mg Q4H PRN RECTAL Temp >100.5 03/02/20 21:45 03/30/20 21:44 Bisacodyl (Dulcolax) 10 mg HSPRN PRN RECTAL Constipation 03/02/20 21:45 05/29/20 21:44 Cetylpyridinium Chloride (Cepacol) 1 lozg Q2H PRN MAINOR For Cough 03/02/20 21:00 05/31/20 08:59 Dextrose (Dextrose 50%) 25 ml Q30M PRN IV Hypoglycemia 03/02/20 20:45 05/29/20 21:44 Dextrose (Dextrose 50%) 50 ml Q30M PRN IV Hypoglycemia 03/02/20 20:45 05/29/20 21:44 Docusate Sodium (Colace) 100 mg EVERY 12 HOURS ORAL 03/02/20 21:00 03/31/20 08:59 03/03/20 08:42 Escitalopram Oxalate (Lexapro) 10 mg DAILY ORAL 03/03/20 09:00 04/02/20 08:59 03/03/20 08:42 Heparin Sodium (Porcine) (Heparin 5000 units/ml) 5,000 units EVERY 12 HOURS SUBQ 03/02/20 21:00 04/15/20 08:59 03/02/20 21:37 Lorazepam (Ativan 2mg/ml 1ml) 0.5 mg Q4H PRN IV Agitation 03/02/20 21:00 03/07/20 20:59 Magnesium Hydroxide (Mom) 30 ml HSPRN PRN ORAL Constipation 03/02/20 21:45 03/30/20 21:44 Ondansetron HCl (Zofran) 4 mg Q6H PRN IVP Nausea & Vomiting 03/02/20 21:00 03/30/20 20:59 03/03/20 08:51 Phosphorus (Phospha 250 Neutral) 250 mg THREE TIMES A DAY ORAL 03/03/20 13:00 04/02/20 12:59 03/03/20 12:29 Piperacillin Sod/ Tazobactam Sod 3.375 gm/Sodium Chloride 110 ml @ 27.5 mls/hr EVERY 8 HOURS IVPB 03/02/20 22:00 03/06/20 13:59 03/03/20 14:05 Polyethylene Glycol (Miralax) 17 gm HSPRN PRN ORAL Constipation 03/02/20 21:45 03/30/20 21:44 Sodium Chloride 1,000 ml @ 75 mls/hr [id number] IVLG 03/02/20 21:30 04/01/20 21:29 03/03/20 11:03 Tamsulosin HCl (Flomax) 0.4 mg BEDTIME ORAL 03/02/20 21:00 03/31/20 20:59 03/02/20 21:38 Allergies: Coded Allergies: No Known Allergies (Unverified , 03/02/20) Subjective Patient visited at bedside; WBC normalized. He states he is feeling better, but thinks he may have coughed up/vomited blood? Remnants were viewed, very minimal , looked more like a possible bloody nose situation. However endorsed to nursing to please monitor closely. Objective Last Vital Signs Date Time Temp Pulse Resp B/P (MAP) Pulse Ox O2 Delivery O2 Flow Rate FiO2 03/03/20 16:00 98.2 73 20 126/76 (93) 96 03/03/20 09:00 Nasal Cannula 2.0 03/03/20 07:55 36 General Appearance: WD/WN, no apparent distress Cardiovascular: normal rate, regular rhythm Respiratory/Chest: lungs clear, normal breath sounds Abdomen: soft Neurologic: private security guard II-XII grossly normal Skin: warm/dry Laboratory Tests Test 03/03/20 04:00 White Blood Count 8.3 K/UL (4.8-10.8) Red Blood Count 4.03 M/UL (4.70-6.10) L Hemoglobin 13.1 G/DL (14.2-18.0) L Hematocrit 38.9 % (42.0-52.0) L Mean Corpuscular Volume 97 FL (80-99) Mean Corpuscular Hemoglobin 32.6 PG (27.0-31.0) H Mean Corpuscular Hemoglobin Concent 33.8 G/DL (32.0-36.0) Red Cell Distribution Width 11.3 % (11.6-14.8) L Platelet Count 112 K/UL (150-450) L Mean Platelet Volume 8.8 FL (6.5-10.1) Neutrophils (%) (Auto) 81.5 % (45.0-75.0) H Lymphocytes (%) (Auto) 12.8 % (20.0-45.0) L Monocytes (%) (Auto) 4.5 % (1.0-10.0) Eosinophils (%) (Auto) 0.7 % (0.0-3.0) Basophils (%) (Auto) 0.4 % (0.0-2.0) Sodium Level 139 MMOL/L (136-145) Potassium Level 3.7 MMOL/L (3.5-5.1) Chloride Level 103 MMOL/L (98-107) Carbon Dioxide Level 32 MMOL/L (21-32) Anion Gap 4 mmol/L (5-15) L Blood Urea Nitrogen 8 mg/dL (7-18) Creatinine 0.8 MG/DL (0.55-1.30) Estimat Glomerular Filtration Rate > 60 mL/min (>60) Glucose Level 103 MG/DL (74-106) Calcium Level 8.2 MG/DL (8.5-10.1) L Phosphorus Level 1.8 MG/DL (2.5-4.9) L Magnesium Level 2.3 MG/DL (1.8-2.4) Total Bilirubin 0.7 MG/DL (0.2-1.0) Aspartate Amino Transf (AST/SGOT) 32 U/L (15-37) Alanine Aminotransferase (ALT/SGPT) 49 U/L (12-78) Alkaline Phosphatase 47 U/L (46-116) Total Protein 5.9 G/DL (6.4-8.2) L Albumin 2.8 G/DL (3.4-5.0) L Globulin 3.1 g/dL Albumin/Globulin Ratio 0.9 (1.0-2.7) L Hepatitis A IgM Antibody Pending Hepatitis B Surface Antigen Pending Hepatitis B Core IgM Antibody Pending Hepatitis C Antibody Pending Microbiology Date/Time Source Procedure Growth Status 02/29/20 20:40 Blood Blood Culture - Preliminary NO GROWTH AFTER 48 HOURS Resulted 02/29/20 20:25 Blood Blood Culture - Preliminary NO GROWTH AFTER 48 HOURS Resulted 03/01/20 15:00 Nasopharynx Coronavirus COVID-19 PCR (ELLY) - Final Complete 03/01/20 04:35 Rectum - Final NO CARBAPENEM-RESISTANT ENTEROBACTERI... Complete 03/01/20 04:35 Rectum VRE Culture - Final NO VANCOMYCIN RESISTANT ENTEROCOCCUS ... Complete Intake and Output 03/02/20 03/03/20 19:00 07:00 Intake Total 2411.75 ml 1115.0 ml Output Total 1630 ml 200 ml Balance 781.75 ml 915.0 ml Intake Oral 1360 ml 480 ml IV Total 1051.75 ml 635.0 ml Output Urine Total 1630 ml 200 ml # Voids 200 Assessment/Plan Assessment/Plan Assessment #SI/Drug Overdose/Depression #Acute hypercapnic Resp Failure 2/2 Above-Resolving #Aspiration PNA 2/2 Above #Acute urinary retention, resolved Plan Appreciate Consultants, f/u with psych recs. Patient is on Lexapro Continue Zosyn IV, dowell Cx. Gentle IVF, Supportive measures. Monitor urine output, Tamsulosin Monitor for signs of hematemesis vs hemoptysis. DVT ppx Supportive measures Diet Lucero Nolasco D.O. Mar 03, 2020 17:11
--- NOTE | 2020-03-03 19:15 | NUR ---
HAND-OFF: Report given to DANIEL Guy and DANIEL Burciaga.
--- NOTE | 2020-03-03 19:30 | NUR ---
NURSE NOTES: Report received from Waqas SANCHEZ, pt. lying in bed, awake alert and oriented, denies any pain at this time, with call light within reach.
[2020-03-03 20:00] VITALS: BP 155/92
--- NOTE | 2020-03-03 20:25 | Nephrology Progress Note ---
Assessment/Plan Plan #Acute kidney injury due to pre-renal azotemia - on CKD- improved #Sepsis #opiod overdose #hypoxemic resp failure # toxic metabolic encephalopathy # possible aspiration pneumonia - decrease NS to 75 cc/hr - cuevas placed - monitor UOP - COVID rule out - defer renal imaging at this time - antibiotics per ID - monitor BMP, mag and phos daily - avoid nephrotoxins - strict I&Os - daily weights time spent 35min Subjective ROS Limited/Unobtainable: Yes Subjective Lethargic cuevas placed for urinary retention Cr downtrending BP stable afeb satting well on NC Objective Objective Last 24 Hour Vital Signs Date Time Temp Pulse Resp B/P (MAP) Pulse Ox O2 Delivery O2 Flow Rate FiO2 03/03/20 19:25 97 Nasal Cannula 4.0 36 03/03/20 16:00 98.2 73 20 126/76 (93) 96 03/03/20 12:00 98.2 79 20 144/73 (96) 96 03/03/20 09:00 Nasal Cannula 2.0 03/03/20 08:00 97.7 70 20 142/75 (97) 98 03/03/20 07:55 96 Nasal Cannula 4.0 36 03/03/20 04:00 98.2 95 19 134/76 (95) 95 03/03/20 00:00 Nasal Cannula 4.0 03/03/20 00:00 98.8 98 19 130/78 (95) 96 Intake and Output 03/02/20 03/03/20 19:00 07:00 Intake Total 2411.75 ml 1115.0 ml Output Total 1630 ml 200 ml Balance 781.75 ml 915.0 ml Intake Oral 1360 ml 480 ml IV Total 1051.75 ml 635.0 ml Output Urine Total 1630 ml 200 ml # Voids 200 Laboratory Tests 03/03/20 04:00: White Blood Count 8.3, Red Blood Count 4.03L, Hemoglobin 13.1L, Hematocrit 38.9L , Mean Corpuscular Volume 97, Mean Corpuscular Hemoglobin 32.6H, Mean Corpuscular Hemoglobin Concent 33.8, Red Cell Distribution Width 11.3L, Platelet Count 112L, Mean Platelet Volume 8.8, Neutrophils (%) (Auto) 81.5H, Lymphocytes (%) (Auto) 12.8L, Monocytes (%) (Auto) 4.5, Eosinophils (%) (Auto) 0.7, Basophils (%) (Auto) 0.4, Sodium Level 139, Potassium Level 3.7, Chloride Level 103, Carbon Dioxide Level 32, Anion Gap 4L, Blood Urea Nitrogen 8, Creatinine 0.8, Estimat Glomerular Filtration Rate > 60, Glucose Level 103, Calcium Level 8.2L, Phosphorus Level 1.8L, Magnesium Level 2.3, Total Bilirubin 0.7, Aspartate Amino Transf (AST/SGOT) 32, Alanine Aminotransferase (ALT/SGPT) 49, Alkaline Phosphatase 47, Total Protein 5.9L, Albumin 2.8L, Globulin 3.1, Albumin/Globulin Ratio 0.9L, Hepatitis A IgM Antibody [Pending], Hepatitis B Surface Antigen [Pending], Hepatitis B Core IgM Antibody [Pending], Hepatitis C Antibody [Pending] Height (Feet): 5 Height (Inches): 7.00 Weight (Pounds): 250 Tong Greene M.D. Mar 03, 2020 20:25
[2020-03-03] MEDS: Tamsulosin 0.4mg cap ORAL SCH (20:43)
[2020-03-04] VITALS: BP 141/79
[2020-03-04 04:00] VITALS: BP 154/79
[2020-03-04] MEDS: Piperacillin/Tazobactam 3.375 GM in NS 110 ML IVPB SCH ×3 (05:23→22:02)
--- NOTE | 2020-03-04 07:01 | NUR ---
HAND-OFF: Report given to Unique SANCHEZ.
--- NOTE | 2020-03-04 07:39 | NUR ---
NURSE NOTES: received report from DANIEL Guy and GualbertoRN. patient in bed. A&Ox4, verbally responsive. no respiratory distress noted on 2L via NC with humidify. no pain but feel nauseated slightly. no nose bleeding or vomiting now. IV on Left hand running Ns@75/hr. F/C draining. ambulatory. bed in the lowest position and locked. call light within reach. will continue to provide plan of care.
[2020-03-04 07:57] LABS: ANION GAP 6 mmol/L (5-15); BLOOD UREA NITROGEN 9 mg/dL (7-18); CALCIUM 8.2 MG/DL (8.5-10.1); CARBON DIOXIDE 31 MMOL/L (21-32); CHLORIDE 102 MMOL/L (98-107); CREATININE 0.8 MG/DL (0.55-1.30); PHOSPHORUS 2.6 MG/DL (2.5-4.9); POTASSIUM 3.7 MMOL/L (3.5-5.1); SODIUM 139 MMOL/L (136-145)
[2020-03-04 07:58] LABS: BASOPHILS % (AUTO) 0.9 % (0.0-2.0); EOSINOPHILS % (AUTO) 1.4 % (0.0-3.0); HEMATOCRIT 40.8 % (42.0-52.0); HEMOGLOBIN 13.4 G/DL (14.2-18.0); LYMPHOCYTES % (AUTO) 9.4 % (20.0-45.0); MEAN CORPUSCULAR VOLUME 101 FL (80-99); MONOCYTES % (AUTO) 6.5 % (1.0-10.0); NEUTROPHILS % (AUTO) 81.8 % (45.0-75.0); PLATELET COUNT 131 K/UL (150-450); RED BLOOD COUNT 4.02 M/UL (4.70-6.10); RED CELL DISTRIBUTION WIDTH 12.4 % (11.6-14.8); WHITE BLOOD COUNT 9.5 K/UL (4.8-10.8)
[2020-03-04 08:00] VITALS: BP 163/93
--- NOTE | 2020-03-04 08:14 | Pulmonology Progress Note ---
Marcela Salmeron PATIENT ACCESS ASSOCIATE 03/04/20 0814: Subjective ROS Limited/Unobtainable: Yes Allergies: Coded Allergies: No Known Allergies (Unverified , 03/02/20) Subjective now on 3L O2 via NC leuk resolved, afebrile had epistaxis 03/03 and spit up bloody mucosal drainage, currently stopped HH stable PLT up to 131 reports occasional nausea Objective Last 24 Hour Vital Signs Date Time Temp Pulse Resp B/P (MAP) Pulse Ox O2 Delivery O2 Flow Rate FiO2 03/04/20 04:00 97.5 67 20 154/79 (104) 92 03/04/20 00:00 97.9 68 19 141/79 (99) 94 03/03/20 21:00 Nasal Cannula 3.0 03/03/20 20:00 97.7 68 20 155/92 (113) 94 03/03/20 19:25 97 Nasal Cannula 4.0 36 03/03/20 16:00 98.2 73 20 126/76 (93) 96 03/03/20 12:00 98.2 79 20 144/73 (96) 96 03/03/20 09:00 Nasal Cannula 2.0 Intake and Output 03/03/20 03/04/20 19:00 07:00 Intake Total 445.0 ml 1512.5 ml Output Total 1700 ml Balance 445.0 ml -187.5 ml Intake Oral 1000 ml IV Total 445.0 ml 512.5 ml Output Urine Total 1700 ml # Bowel Movements 1 Objective General Appearance: awake and alert, on O2 via NC Lines, tubes and drains: peripheral HEENT: normocephalic, atraumatic, anicteric Respiratory/Chest: lungs clear, Cardiovascular/Chest: normal rate - SR on tele Abdomen: normal bowel sounds, non tender, soft Extremities: normal capillary refill, no edema Skin Exam: warm/dry, skin tattoos noted Musculoskeletal: normal muscle bulk Microbiology Date/Time Source Procedure Growth Status 03/01/20 15:00 Nasopharynx Coronavirus COVID-19 PCR ([facility]) - Final Complete Laboratory Tests 03/04/20 06:10: White Blood Count 9.5, Red Blood Count 4.02L, Hemoglobin 13.4L, Hematocrit 40.8L , Mean Corpuscular Volume 101H, Mean Corpuscular Hemoglobin 33.2H, Mean Corpuscular Hemoglobin Concent 32.7, Red Cell Distribution Width 12.4, Platelet Count 131L, Mean Platelet Volume 8.7, Neutrophils (%) (Auto) 81.8H, Lymphocytes (%) (Auto) 9.4L, Monocytes (%) (Auto) 6.5, Eosinophils (%) (Auto) 1.4, Basophils (%) (Auto) 0.9, Sodium Level 139, Potassium Level 3.7, Chloride Level 102, Carbon Dioxide Level 31, Anion Gap 6, Blood Urea Nitrogen 9, Creatinine 0.8 , Estimat Glomerular Filtration Rate > 60, Glucose Level 110H, Calcium Level 8.2L, Phosphorus Level 2.6, Magnesium Level 2.2 Current Medications Medications (Trade) Dose Ordered Sig/Zan Route PRN Reason Start Time Stop Time Status Last Admin Dose Admin Acetaminophen (Tylenol) 650 mg Q4H PRN ORAL Mild Pain (Pain Scale 1-3) 03/02/20 21:45 03/30/20 21:44 Acetaminophen (Tylenol) 650 mg Q4H PRN ORAL Temp >100.5 03/02/20 21:45 03/30/20 21:44 Acetaminophen (Tylenol) 650 mg Q4H PRN RECTAL Mild Pain (Pain Scale 1-3) 03/02/20 21:45 03/30/20 21:44 Acetaminophen (Tylenol) 650 mg Q4H PRN RECTAL Temp >100.5 03/02/20 21:45 03/30/20 21:44 Bisacodyl (Dulcolax) 10 mg HSPRN PRN RECTAL Constipation 03/02/20 21:45 05/29/20 21:44 Cetylpyridinium Chloride (Cepacol) 1 lozg Q2H PRN MAINOR For Cough 03/02/20 21:00 05/31/20 08:59 Dextrose (Dextrose 50%) 25 ml Q30M PRN IV Hypoglycemia 03/02/20 20:45 05/29/20 21:44 Dextrose (Dextrose 50%) 50 ml Q30M PRN IV Hypoglycemia 03/02/20 20:45 05/29/20 21:44 Docusate Sodium (Colace) 100 mg EVERY 12 HOURS ORAL 03/02/20 21:00 03/31/20 08:59 03/03/20 20:43 Escitalopram Oxalate (Lexapro) 10 mg DAILY ORAL 03/03/20 09:00 04/02/20 08:59 03/03/20 08:42 Famotidine (Pepcid I.v.) 20 mg Q12HR IVP 03/03/20 18:00 04/02/20 17:59 03/03/20 17:18 Heparin Sodium (Porcine) (Heparin 5000 units/ml) 5,000 units EVERY 12 HOURS SUBQ 03/02/20 21:00 04/15/20 08:59 03/02/20 21:37 Lorazepam (Ativan 2mg/ml 1ml) 0.5 mg Q4H PRN IV Agitation 03/02/20 21:00 03/07/20 20:59 Magnesium Hydroxide (Mom) 30 ml HSPRN PRN ORAL Constipation 03/02/20 21:45 03/30/20 21:44 Ondansetron HCl (Zofran) 4 mg Q6H PRN IVP Nausea & Vomiting 03/02/20 21:00 03/30/20 20:59 03/03/20 08:51 Phosphorus (Phospha 250 Neutral) 250 mg THREE TIMES A DAY ORAL 03/03/20 13:00 04/02/20 12:59 03/03/20 17:18 Piperacillin Sod/ Tazobactam Sod 3.375 gm/Sodium Chloride 110 ml @ 27.5 mls/hr EVERY 8 HOURS IVPB 03/02/20 22:00 03/06/20 13:59 03/04/20 05:23 Polyethylene Glycol (Miralax) 17 gm HSPRN PRN ORAL Constipation 03/02/20 21:45 03/30/20 21:44 03/04/20 00:04 Sodium Chloride 1,000 ml @ 75 mls/hr [id number] IVLG 03/02/20 21:30 04/01/20 21:29 03/03/20 11:03 Tamsulosin HCl (Flomax) 0.4 mg BEDTIME ORAL 03/02/20 21:00 03/31/20 20:59 03/03/20 20:43 Assessment/Plan Assessment/Plan ASSESSMENT Acute toxic metabolic encephalopathy due to OD on narcotic analgesics - resolved Acute hypoxemic hypercapnic respiratory failure, requiring NRM and BiPAP - resolved Sepsis Probably aspiration PNA Acute renal failure, possibly on CKD -resolved Lactic acidosis Transaminitis Suicidal attempt Elevated BP w/out hx or HTN PLAN OF CARE MS floor O2 titrate to keep sat above 90% humidified O2 pulm toilet empiric abx /Zosyn fup with cx BCX 01/28 NGTD SARS COV2 by ELIANA 03/01 not detected epistasis episode 03/03 felt to be due to dryness of mucosa, started 03/03 on humidified O2 PLT count monitored 03/03 - 112, but 03/04 -131 HH stable no further episodes O2 titrate further on 3L via NC, titrate to keep sat above 90%, humidify O2 CXR 03/02 Extensive peripheral right lung infiltrates, likely pneumonia and small nodular left lung infiltrate, developing since prior study of 2 days earlier. fup with CXR in am DVT prophylaxis asp precautions swallow eval stable BP elevated no hx of HTN add Clonidine prn , likely due to drug w/drawl decrease IVF rate to 40 and dc in am monitor renal parameters, lytes avoid nephrotoxics correct lytes as needed , P replaced with Phospho soda 03/03, P stable this am, dc Phospho soda creat stable trend LFT , hep panel psych eval supportive care case discussed and evaluated by supervising physician Jarad Banuelos MD 03/04/20 1344: Subjective Allergies: Coded Allergies: No Known Allergies (Unverified , 03/02/20) Assessment/Plan Assessment/Plan Patient seen and examined with PATIENT ACCESS ASSOCIATE. Agree with above A&P as it reflects our joint deliberations. Marcela Salmeron PATIENT ACCESS ASSOCIATE Mar 04, 2020 08:14 Jarad Banuelos MD Mar 04, 2020 13:44
[2020-03-04] MEDS: Heparin 5000 units/ml inj SUBQ SCH ×2 (08:19→20:34)
[2020-03-04] MEDS: Docusate 100mg cap ORAL SCH ×2 (08:27→20:32)
[2020-03-04] MEDS: Phospha 250 Neutral tab ORAL SCH (08:27)
--- NOTE | 2020-03-04 09:00 | NUR ---
NURSE NOTES: Seen by Marcela Salmeron NP. notified patient c/o hiccups through the night. no new order at this time. monitor.
--- NOTE | 2020-03-04 10:00 | NUR ---
NURSE NOTES: Seen by . notified patient c/o weakness, nausea, episode of vomiting yesterday. no new order at this time. continue to monitor. if patient has continuous symptoms until tomorrow, MD larson consider KUB.
--- NOTE | 2020-03-04 10:22 | Nephrology Progress Note ---
Assessment/Plan Plan #Acute kidney injury due to pre-renal azotemia - on CKD- improved #Sepsis #opiod overdose #hypoxemic resp failure # toxic metabolic encephalopathy # possible aspiration pneumonia - DC IVF - cuevas placed - monitor UOP - COVID rule out - defer renal imaging at this time - antibiotics per ID - monitor BMP, mag and phos daily - avoid nephrotoxins - strict I&Os - daily weights time spent 35min Subjective ROS Limited/Unobtainable: No Constitutional: Denies: no symptoms, chills, diaphoresis, fever, malaise, weakness, other HEENT: Denies: no symptoms, eye pain, blurred vision, tearing, double vision, ear pain, ear discharge, nose pain, nose congestion, throat pain, throat swelling, mouth pain, mouth swelling, other Genitourinary: Denies: no symptoms, burning, discharge, frequency, flank pain, hematuria, incontinence, pain, urgency, other Neurologic/Psychiatric: Denies: no symptoms, anxiety, depressed, emotional problems, headache, numbness, paresthesia, pre-existing deficit, seizure, tingling, tremors, weakness, other Subjective Cr downtrending alert and interactive Cuevas placed BP stable afeb satting well on NC Objective Objective Last 24 Hour Vital Signs Date Time Temp Pulse Resp B/P (MAP) Pulse Ox O2 Delivery O2 Flow Rate FiO2 03/04/20 08:00 98.0 59 18 163/93 (116) 95 03/04/20 04:00 97.5 67 20 154/79 (104) 92 03/04/20 00:00 97.9 68 19 141/79 (99) 94 03/03/20 21:00 Nasal Cannula 3.0 03/03/20 20:00 97.7 68 20 155/92 (113) 94 03/03/20 19:25 97 Nasal Cannula 4.0 36 03/03/20 16:00 98.2 73 20 126/76 (93) 96 03/03/20 12:00 98.2 79 20 144/73 (96) 96 Intake and Output 03/03/20 03/04/20 19:00 07:00 Intake Total 445.0 ml 1512.5 ml Output Total 1700 ml Balance 445.0 ml -187.5 ml Intake Oral 1000 ml IV Total 445.0 ml 512.5 ml Output Urine Total 1700 ml # Bowel Movements 1 Laboratory Tests 03/04/20 06:10: White Blood Count 9.5, Red Blood Count 4.02L, Hemoglobin 13.4L, Hematocrit 40.8L , Mean Corpuscular Volume 101H, Mean Corpuscular Hemoglobin 33.2H, Mean Corpuscular Hemoglobin Concent 32.7, Red Cell Distribution Width 12.4, Platelet Count 131L, Mean Platelet Volume 8.7, Neutrophils (%) (Auto) 81.8H, Lymphocytes (%) (Auto) 9.4L, Monocytes (%) (Auto) 6.5, Eosinophils (%) (Auto) 1.4, Basophils (%) (Auto) 0.9, Sodium Level 139, Potassium Level 3.7, Chloride Level 102, Carbon Dioxide Level 31, Anion Gap 6, Blood Urea Nitrogen 9, Creatinine 0.8 , Estimat Glomerular Filtration Rate > 60, Glucose Level 110H, Calcium Level 8.2L, Phosphorus Level 2.6, Magnesium Level 2.2 Height (Feet): 5 Height (Inches): 7.00 Weight (Pounds): 242 Tong Greene M.D. Mar 04, 2020 10:22
[2020-03-04 12:00] VITALS: BP 140/85
--- NOTE | 2020-03-04 13:55 | Internal Med Progress Note ---
Subjective Date of Service: Mar 04, 2020 Physician Name Lucero Nolasco Attending Physician Jarad Banuelos MD Current Medications Medications (Trade) Dose Ordered Sig/Zan Route PRN Reason Start Time Stop Time Status Last Admin Dose Admin Acetaminophen (Tylenol) 650 mg Q4H PRN ORAL Mild Pain (Pain Scale 1-3) 03/02/20 21:45 03/30/20 21:44 Acetaminophen (Tylenol) 650 mg Q4H PRN ORAL Temp >100.5 03/02/20 21:45 03/30/20 21:44 Acetaminophen (Tylenol) 650 mg Q4H PRN RECTAL Mild Pain (Pain Scale 1-3) 03/02/20 21:45 03/30/20 21:44 Acetaminophen (Tylenol) 650 mg Q4H PRN RECTAL Temp >100.5 03/02/20 21:45 03/30/20 21:44 Bisacodyl (Dulcolax) 10 mg HSPRN PRN RECTAL Constipation 03/02/20 21:45 05/29/20 21:44 Cetylpyridinium Chloride (Cepacol) 1 lozg Q2H PRN MAINOR For Cough 03/02/20 21:00 05/31/20 08:59 Clonidine HCl (Catapres Tab) 0.1 mg EVERY 6 HOURS PRN ORAL sbp > 160 03/04/20 09:30 06/02/20 09:29 Dextrose (Dextrose 50%) 25 ml Q30M PRN IV Hypoglycemia 03/02/20 20:45 05/29/20 21:44 Dextrose (Dextrose 50%) 50 ml Q30M PRN IV Hypoglycemia 03/02/20 20:45 05/29/20 21:44 Docusate Sodium (Colace) 100 mg EVERY 12 HOURS ORAL 03/02/20 21:00 03/31/20 08:59 03/04/20 08:27 Escitalopram Oxalate (Lexapro) 10 mg DAILY ORAL 03/03/20 09:00 04/02/20 08:59 03/04/20 08:27 Famotidine (Pepcid I.v.) 20 mg Q12HR IVP 03/03/20 18:00 04/02/20 17:59 03/04/20 08:27 Heparin Sodium (Porcine) (Heparin 5000 units/ml) 5,000 units EVERY 12 HOURS SUBQ 03/02/20 21:00 04/15/20 08:59 03/02/20 21:37 Lorazepam (Ativan 2mg/ml 1ml) 0.5 mg Q4H PRN IV Agitation 03/02/20 21:00 03/07/20 20:59 Magnesium Hydroxide (Mom) 30 ml HSPRN PRN ORAL Constipation 03/02/20 21:45 03/30/20 21:44 Ondansetron HCl (Zofran) 4 mg Q6H PRN IVP Nausea & Vomiting 03/02/20 21:00 03/30/20 20:59 03/04/20 08:27 Piperacillin Sod/ Tazobactam Sod 3.375 gm/Sodium Chloride 110 ml @ 27.5 mls/hr EVERY 8 HOURS IVPB 03/02/20 22:00 03/06/20 13:59 03/04/20 05:23 Polyethylene Glycol (Miralax) 17 gm HSPRN PRN ORAL Constipation 03/02/20 21:45 03/30/20 21:44 03/04/20 00:04 Sodium Chloride 1,000 ml @ 40 mls/hr Q24H IVLG 03/04/20 21:30 04/01/20 21:29 Tamsulosin HCl (Flomax) 0.4 mg BEDTIME ORAL 03/02/20 21:00 03/31/20 20:59 03/03/20 20:43 Allergies: Coded Allergies: No Known Allergies (Unverified , 03/02/20) Subjective Platelet count is improving and no more epistaxis. Labs and vitals stable. Patient seen by psych, no imminent danger to self and is on lexapro. He actually is probably stable for d/c however he is homeless, and given SI, feel social work and case management will need to address Thursday; for now continue present care. He is saturating well on RA. Objective Last Vital Signs Date Time Temp Pulse Resp B/P (MAP) Pulse Ox O2 Delivery O2 Flow Rate FiO2 03/04/20 12:00 97.9 62 18 140/85 (103) 93 03/04/20 09:00 Nasal Cannula 2.0 03/03/20 19:25 36 Laboratory Tests Test 03/04/20 06:10 White Blood Count 9.5 K/UL (4.8-10.8) Red Blood Count 4.02 M/UL (4.70-6.10) L Hemoglobin 13.4 G/DL (14.2-18.0) L Hematocrit 40.8 % (42.0-52.0) L Mean Corpuscular Volume 101 FL (80-99) H Mean Corpuscular Hemoglobin 33.2 PG (27.0-31.0) H Mean Corpuscular Hemoglobin Concent 32.7 G/DL (32.0-36.0) Red Cell Distribution Width 12.4 % (11.6-14.8) Platelet Count 131 K/UL (150-450) L Mean Platelet Volume 8.7 FL (6.5-10.1) Neutrophils (%) (Auto) 81.8 % (45.0-75.0) H Lymphocytes (%) (Auto) 9.4 % (20.0-45.0) L Monocytes (%) (Auto) 6.5 % (1.0-10.0) Eosinophils (%) (Auto) 1.4 % (0.0-3.0) Basophils (%) (Auto) 0.9 % (0.0-2.0) Sodium Level 139 MMOL/L (136-145) Potassium Level 3.7 MMOL/L (3.5-5.1) Chloride Level 102 MMOL/L (98-107) Carbon Dioxide Level 31 MMOL/L (21-32) Anion Gap 6 mmol/L (5-15) Blood Urea Nitrogen 9 mg/dL (7-18) Creatinine 0.8 MG/DL (0.55-1.30) Estimat Glomerular Filtration Rate > 60 mL/min (>60) Glucose Level 110 MG/DL (74-106) H Calcium Level 8.2 MG/DL (8.5-10.1) L Phosphorus Level 2.6 MG/DL (2.5-4.9) Magnesium Level 2.2 MG/DL (1.8-2.4) Microbiology Date/Time Source Procedure Growth Status 03/01/20 15:00 Nasopharynx Coronavirus COVID-19 PCR ([facility]) - Final Complete Intake and Output 03/03/20 03/04/20 19:00 07:00 Intake Total 445.0 ml 1512.5 ml Output Total 1700 ml Balance 445.0 ml -187.5 ml Intake Oral 1000 ml IV Total 445.0 ml 512.5 ml Output Urine Total 1700 ml # Bowel Movements 1 Objective General Appearance: WD/WN, no apparent distress Cardiovascular: normal rate, regular rhythm Respiratory/Chest: lungs clear, normal breath sounds Abdomen: soft Neurologic: pediatric genetic counselor II-XII grossly normal Skin: warm/dry Assessment/Plan Assessment/Plan Assessment #SI/Drug Overdose/Depression #Acute hypercapnic Resp Failure 2/2 Above-Resolving #Aspiration PNA 2/2 Above #Acute urinary retention, resolved #MADHURI #Thrombocytopenia Plan Appreciate Consultants, f/u with psych recs. Patient is on Lexapro Continue Zosyn IV, dowell Cx. Gentle IVF, Supportive measures. Monitor urine output, Tamsulosin DVT ppx Supportive measures Diet 03/04: Patient is homeless; will need CM/SW consult in AM. D/C planning Lucero Nolasco D.O. Mar 04, 2020 13:55
[2020-03-04 16:00] VITALS: BP 136/76
--- NOTE | 2020-03-04 19:08 | NUR ---
HAND-OFF: Report given to DANIEL Guy and DANIEL JACKMAN .
--- NOTE | 2020-03-04 19:10 | NUR ---
NURSE NOTES: Report received from Unique RN, pt. is in bed, asleep, with O2 @ 3lpm via nc. With cuevas cath attached to drainage bag, draining well to a light clair colored urine,no sediments noted. Bed in lowest positioned and locked. Call light was within reach.
[2020-03-04 20:00] VITALS: BP 138/84
[2020-03-04] MEDS: Tamsulosin 0.4mg cap ORAL SCH (20:32)
--- NOTE | 2020-03-04 21:51 | Psych Consult Progress Note ---
Psychiatry Progress Note Psychiatry Progress Note Medications Current Medications Medications (Trade) Dose Ordered Sig/Zan Route PRN Reason Start Time Stop Time Status Last Admin Dose Admin Acetaminophen (Tylenol) 650 mg Q4H PRN ORAL Mild Pain (Pain Scale 1-3) 03/02/20 21:45 03/30/20 21:44 Acetaminophen (Tylenol) 650 mg Q4H PRN ORAL Temp >100.5 03/02/20 21:45 03/30/20 21:44 Acetaminophen (Tylenol) 650 mg Q4H PRN RECTAL Mild Pain (Pain Scale 1-3) 03/02/20 21:45 03/30/20 21:44 Acetaminophen (Tylenol) 650 mg Q4H PRN RECTAL Temp >100.5 03/02/20 21:45 03/30/20 21:44 Amlodipine Besylate (Norvasc) 10 mg DAILY ORAL 03/04/20 14:00 04/03/20 13:59 03/04/20 14:19 Bisacodyl (Dulcolax) 10 mg HSPRN PRN RECTAL Constipation 03/02/20 21:45 05/29/20 21:44 Cetylpyridinium Chloride (Cepacol) 1 lozg Q2H PRN MAINOR For Cough 03/02/20 21:00 05/31/20 08:59 Clonidine HCl (Catapres Tab) 0.1 mg EVERY 6 HOURS PRN ORAL sbp > 160 03/04/20 09:30 06/02/20 09:29 Dextrose (Dextrose 50%) 25 ml Q30M PRN IV Hypoglycemia 03/02/20 20:45 05/29/20 21:44 Dextrose (Dextrose 50%) 50 ml Q30M PRN IV Hypoglycemia 03/02/20 20:45 05/29/20 21:44 Docusate Sodium (Colace) 100 mg EVERY 12 HOURS ORAL 03/02/20 21:00 03/31/20 08:59 03/04/20 20:32 Escitalopram Oxalate (Lexapro) 10 mg DAILY ORAL 03/03/20 09:00 04/02/20 08:59 03/04/20 08:27 Famotidine (Pepcid I.v.) 20 mg Q12HR IVP 03/03/20 18:00 04/02/20 17:59 03/04/20 20:33 Heparin Sodium (Porcine) (Heparin 5000 units/ml) 5,000 units EVERY 12 HOURS SUBQ 03/02/20 21:00 04/15/20 08:59 03/04/20 20:34 Lorazepam (Ativan 2mg/ml 1ml) 0.5 mg Q4H PRN IV Agitation 03/02/20 21:00 03/07/20 20:59 Magnesium Hydroxide (Mom) 30 ml HSPRN PRN ORAL Constipation 03/02/20 21:45 03/30/20 21:44 Ondansetron HCl (Zofran) 4 mg Q6H PRN IVP Nausea & Vomiting 03/02/20 21:00 03/30/20 20:59 03/04/20 08:27 Piperacillin Sod/ Tazobactam Sod 3.375 gm/Sodium Chloride 110 ml @ 27.5 mls/hr EVERY 8 HOURS IVPB 03/02/20 22:00 03/06/20 13:59 03/04/20 14:20 Polyethylene Glycol (Miralax) 17 gm HSPRN PRN ORAL Constipation 03/02/20 21:45 03/30/20 21:44 03/04/20 00:04 Sodium Chloride 1,000 ml @ 40 mls/hr Q24H IVLG 03/04/20 21:30 04/01/20 21:29 Tamsulosin HCl (Flomax) 0.4 mg BEDTIME ORAL 03/02/20 21:00 03/31/20 20:59 03/04/20 20:32 Neurological/Psychiatric: Reports: anxiety, depressed, emotional problems Allergies: Coded Allergies: No Known Allergies (Unverified , 03/02/20) Objective Data Height (Feet): 5 Height (Inches): 7.00 Weight (Pounds): 242 Additional Comments: alert and oriented times self, place, situation, and date. Mood is slightly irritable. Affect is constricted with congruent with mood. Thought process is concrete. Thought content, no suicidal or homicidal ideation. Cognition is intact. Insight and judgment are fair. Assessment/Plan Status: stable Assessment/Plan: ASSESSMENT: AXIS I: Major depressive disorder. AXIS II: Deferred. AXIS III: As above. AXIS IV: Low. AXIS V: 25. PLAN: 1. - Lexapro 10mg . 2. The patient is not an imminent danger to self or others. 3. We will continue to follow and readjust the medications. 4. The patient should be discharged when medically stable. Ashia Del Real MD Mar 04, 2020 21:51
[2020-03-05] VITALS: BP 140/84
[2020-03-05 04:00] VITALS: BP 146/75
[2020-03-05] MEDS: Piperacillin/Tazobactam 3.375 GM in NS 110 ML IVPB SCH ×3 (05:57→21:34)
--- NOTE | 2020-03-05 07:35 | NUR ---
HAND-OFF: Report given to Pablo SANCHEZ.
[2020-03-05 08:00] VITALS: BP 145/85
[2020-03-05 08:54] LABS: EOSINOPHILS % (AUTO) 1.9 % (0.0-3.0); HEMATOCRIT 44.4 % (42.0-52.0); HEMOGLOBIN 14.1 G/DL (14.2-18.0); LYMPHOCYTES % (AUTO) 12.6 % (20.0-45.0); MEAN CORPUSCULAR VOLUME 102 FL (80-99); MONOCYTES % (AUTO) 8.7 % (1.0-10.0); NEUTROPHILS % (AUTO) 75.9 % (45.0-75.0); PLATELET COUNT 158 K/UL (150-450); RED BLOOD COUNT 4.36 M/UL (4.70-6.10); RED CELL DISTRIBUTION WIDTH 12.5 % (11.6-14.8); WHITE BLOOD COUNT 8.8 K/UL (4.8-10.8)
[2020-03-05] MEDS: Docusate 100mg cap ORAL SCH ×2 (08:54→21:34)
[2020-03-05] MEDS: Heparin 5000 units/ml inj SUBQ SCH ×2 (08:55→21:36)
[2020-03-05 09:01] LABS: ANION GAP 6 mmol/L (5-15); BLOOD UREA NITROGEN 6 mg/dL (7-18); CALCIUM 8.5 MG/DL (8.5-10.1); CARBON DIOXIDE 32 MMOL/L (21-32); CHLORIDE 100 MMOL/L (98-107); CREATININE 0.8 MG/DL (0.55-1.30); POTASSIUM 3.6 MMOL/L (3.5-5.1); SODIUM 138 MMOL/L (136-145)
--- NOTE | 2020-03-05 09:16 | NUR ---
Social Work This SW followed up with COVID placement for homelessness: [facility] @ [phone] Ext [phone] (spoke with cristofer, Susan). She explains they do not have any openings at this time; SW will call back later this afternoon to verify bed status.
--- NOTE | 2020-03-05 09:19 | Diagnostic Imaging Report ---
Procedure: XRAY Chest 1v Reason for study: Reason For Exam: SOB Comparison films: 03/02/2020. FINDINGS: A single one view chest is obtained. Vascularity is normal. Mildly improved right basilar infiltrate noted. Left retrocardiac densities unchanged. Cardiac and mediastinal silhouette are within normal limits. CP angles are sharp. The bony thorax appear unremarkable. IMPRESSION: Slightly improved right basilar infiltrate.
--- NOTE | 2020-03-05 10:05 | NUR ---
NURSE NOTES: PT AXOX4, CALM, RESTING IN BED. DENIES ANY PAIN OR SOB AT THIS TIME. PT IS ON 2L NC O2. VSS AND IN NO APPARENT DISTRESS AT THIS TIME. PT VERBALIZES UNDERSTANDING HOW TO USE CALL LIGHT TO CALL FOR STAFF. CALL LIGHT WITHIN REACH. WILL CONTINUE TO MONITOR.
--- NOTE | 2020-03-05 10:19 | Pulmonology Progress Note ---
Subjective ROS Limited/Unobtainable: Yes Allergies: Coded Allergies: No Known Allergies (Unverified , 03/02/20) Subjective now on 3L O2 via NC leuk resolved, remains afebrile occasional dry cough, no wheezing, no hemoptysis reports occasional nausea, but with improvement and able to tolerate diet Objective Last 24 Hour Vital Signs Date Time Temp Pulse Resp B/P (MAP) Pulse Ox O2 Delivery O2 Flow Rate FiO2 03/05/20 08:54 63 145/85 03/05/20 08:00 97.9 63 18 145/85 (105) 97 03/05/20 04:00 97.9 65 18 146/75 (98) 95 03/05/20 03:46 97.2 03/05/20 00:00 98.4 67 18 140/84 (102) 94 03/04/20 21:00 Nasal Cannula 3.0 03/04/20 20:00 97.1 71 18 138/84 (102) 96 03/04/20 20:00 95 Nasal Cannula 4.0 36 03/04/20 16:00 97.9 62 19 136/76 (96) 94 03/04/20 14:19 62 140/85 03/04/20 12:00 97.9 62 18 140/85 (103) 93 Intake and Output 03/04/20 03/05/20 19:00 07:00 Intake Total 432.5 ml 457.5 ml Output Total 150 ml 1300 ml Balance 282.5 ml -842.5 ml Intake Oral 240 ml IV Total 192.5 ml 457.5 ml Output Urine Total 150 ml 1300 ml # Voids 1 # Bowel Movements 1 Objective General Appearance: awake and alert, on O2 via NC Lines, tubes and drains: peripheral HEENT: normocephalic, atraumatic, anicteric Respiratory/Chest: lungs clear, Cardiovascular/Chest: normal rate - SR on tele Abdomen: normal bowel sounds, non tender, soft Extremities: normal capillary refill, no edema Skin Exam: warm/dry, skin tattoos noted Musculoskeletal: normal muscle bulk Laboratory Tests 03/05/20 08:20: White Blood Count 8.8, Red Blood Count 4.36L, Hemoglobin 14.1L, Hematocrit 44.4 , Mean Corpuscular Volume 102H, Mean Corpuscular Hemoglobin 32.4H, Mean Corpuscular Hemoglobin Concent 31.8L, Red Cell Distribution Width 12.5, Platelet Count 158, Mean Platelet Volume 8.2, Neutrophils (%) (Auto) 75.9H, Lymphocytes (%) (Auto) 12.6L, Monocytes (%) (Auto) 8.7, Eosinophils (%) (Auto) 1.9, Basophils (%) (Auto) 1.0, Sodium Level 138, Potassium Level 3.6, Chloride Level 100, Carbon Dioxide Level 32, Anion Gap 6, Blood Urea Nitrogen 6L, Creatinine 0.8, Estimat Glomerular Filtration Rate > 60, Glucose Level 147H, Calcium Level 8.5 Current Medications Medications (Trade) Dose Ordered Sig/Zan Route PRN Reason Start Time Stop Time Status Last Admin Dose Admin Acetaminophen (Tylenol) 650 mg Q4H PRN ORAL Mild Pain (Pain Scale 1-3) 03/02/20 21:45 03/30/20 21:44 03/05/20 03:16 Acetaminophen (Tylenol) 650 mg Q4H PRN ORAL Temp >100.5 03/02/20 21:45 03/30/20 21:44 Acetaminophen (Tylenol) 650 mg Q4H PRN RECTAL Mild Pain (Pain Scale 1-3) 03/02/20 21:45 03/30/20 21:44 Acetaminophen (Tylenol) 650 mg Q4H PRN RECTAL Temp >100.5 03/02/20 21:45 03/30/20 21:44 Amlodipine Besylate (Norvasc) 10 mg DAILY ORAL 03/04/20 14:00 04/03/20 13:59 03/05/20 08:54 Bisacodyl (Dulcolax) 10 mg HSPRN PRN RECTAL Constipation 03/02/20 21:45 05/29/20 21:44 Cetylpyridinium Chloride (Cepacol) 1 lozg Q2H PRN MAINOR For Cough 03/02/20 21:00 05/31/20 08:59 Clonidine HCl (Catapres Tab) 0.1 mg EVERY 6 HOURS PRN ORAL sbp > 160 03/04/20 09:30 06/02/20 09:29 Dextrose (Dextrose 50%) 25 ml Q30M PRN IV Hypoglycemia 03/02/20 20:45 05/29/20 21:44 Dextrose (Dextrose 50%) 50 ml Q30M PRN IV Hypoglycemia 03/02/20 20:45 05/29/20 21:44 Docusate Sodium (Colace) 100 mg EVERY 12 HOURS ORAL 03/02/20 21:00 03/31/20 08:59 03/05/20 08:54 Escitalopram Oxalate (Lexapro) 10 mg DAILY ORAL 03/03/20 09:00 04/02/20 08:59 03/05/20 08:54 Famotidine (Pepcid I.v.) 20 mg Q12HR IVP 03/03/20 18:00 04/02/20 17:59 03/05/20 08:54 Heparin Sodium (Porcine) (Heparin 5000 units/ml) 5,000 units EVERY 12 HOURS SUBQ 03/02/20 21:00 04/15/20 08:59 03/04/20 20:34 Lorazepam (Ativan 2mg/ml 1ml) 0.5 mg Q4H PRN IV Agitation 03/02/20 21:00 03/07/20 20:59 Magnesium Hydroxide (Mom) 30 ml HSPRN PRN ORAL Constipation 03/02/20 21:45 03/30/20 21:44 Ondansetron HCl (Zofran) 4 mg Q6H PRN IVP Nausea & Vomiting 03/02/20 21:00 03/30/20 20:59 03/04/20 08:27 Piperacillin Sod/ Tazobactam Sod 3.375 gm/Sodium Chloride 110 ml @ 27.5 mls/hr EVERY 8 HOURS IVPB 03/02/20 22:00 03/06/20 13:59 03/05/20 05:57 Polyethylene Glycol (Miralax) 17 gm HSPRN PRN ORAL Constipation 03/02/20 21:45 03/30/20 21:44 03/04/20 00:04 Sodium Chloride 1,000 ml @ 40 mls/hr Q24H IVLG 03/04/20 21:30 04/01/20 21:29 03/04/20 22:27 Tamsulosin HCl (Flomax) 0.4 mg BEDTIME ORAL 03/02/20 21:00 03/31/20 20:59 03/04/20 20:32 Assessment/Plan Assessment/Plan ASSESSMENT Acute toxic metabolic encephalopathy due to OD on narcotic analgesics - resolved Acute hypoxemic hypercapnic respiratory failure, requiring NRM and BiPAP - resolved Sepsis Probably aspiration PNA-imprving Acute renal failure, possibly on CKD -resolved Lactic acidosis Transaminitis Suicidal attempt Elevated BP w/out hx or HTN PLAN OF CARE MS floor O2 titrate to keep sat above 90% humidified O2 pulm toilet empiric abx /Zosyn fup with cx BCX 01/28 NGTD SARS COV2 by ELIANA 03/01 not detected CXR 03/02 Extensive peripheral right lung infiltrates, likely pneumonia and small nodular left lung infiltrate, developing since prior study of 2 days earlier. CXR 03/05 with slightly improved right basilar infiltrate. remains afebrile, leukocytosis resolved remove O2 fro 30 min and check pulse ox if above 90 keep off O2 epistasis episode 03/03 felt to be due to dryness of mucosa, started 03/03 on humidified O2 PLT count monitored 03/03 - 112, but 03/04 -131 HH stable no further episodes O2 titrate further DVT prophylaxis asp precautions swallow eval stable BP elevated no hx of HTN add Clonidine prn , likely due to drug w/drawl decrease IVF rate to 40 and dc in am monitor renal parameters, lytes avoid nephrotoxics correct lytes as needed , P replaced with Phospho soda 03/03, P stable this am, dc Phospho soda creat stable dc Gaviria if OK with nephro trend LFT , hep panel pending psych eval supportive care case discussed and evaluated by supervising physician Marcela Salmeron NP Mar 05, 2020 10:19
--- NOTE | 2020-03-05 10:34 | Nephrology Progress Note ---
Assessment/Plan Plan #Acute kidney injury due to pre-renal azotemia - on CKD- improved #Sepsis #opiod overdose #hypoxemic resp failure # toxic metabolic encephalopathy # possible aspiration pneumonia - DC IVF - voiding trial today - amlodipine 10mg daily - clonidine 0.1mg q2hr prn - monitor UOP - COVID ruled out - defer renal imaging at this time - antibiotics per ID - monitor BMP, mag and phos daily - avoid nephrotoxins - strict I&Os - daily weights time spent 35min Subjective ROS Limited/Unobtainable: No Constitutional: Denies: no symptoms, chills, diaphoresis, fever, malaise, weakness, other HEENT: Denies: no symptoms, eye pain, blurred vision, tearing, double vision, ear pain, ear discharge, nose pain, nose congestion, throat pain, throat swelling, mouth pain, mouth swelling, other Genitourinary: Denies: no symptoms, burning, discharge, frequency, flank pain, hematuria, incontinence, pain, urgency, other Neurologic/Psychiatric: Denies: no symptoms, anxiety, depressed, emotional problems, headache, numbness, paresthesia, pre-existing deficit, seizure, tingling, tremors, weakness, other Subjective Cr downtrending alert and interactive plan for voiding trial today BP stable afeb satting well on NC Objective Objective Last 24 Hour Vital Signs Date Time Temp Pulse Resp B/P (MAP) Pulse Ox O2 Delivery O2 Flow Rate FiO2 03/05/20 08:54 63 145/85 03/05/20 08:00 97.9 63 18 145/85 (105) 97 03/05/20 04:00 97.9 65 18 146/75 (98) 95 03/05/20 03:46 97.2 03/05/20 00:00 98.4 67 18 140/84 (102) 94 03/04/20 21:00 Nasal Cannula 3.0 03/04/20 20:00 97.1 71 18 138/84 (102) 96 03/04/20 20:00 95 Nasal Cannula 4.0 36 03/04/20 16:00 97.9 62 19 136/76 (96) 94 03/04/20 14:19 62 140/85 03/04/20 12:00 97.9 62 18 140/85 (103) 93 Intake and Output 03/04/20 03/05/20 19:00 07:00 Intake Total 432.5 ml 457.5 ml Output Total 150 ml 1300 ml Balance 282.5 ml -842.5 ml Intake Oral 240 ml IV Total 192.5 ml 457.5 ml Output Urine Total 150 ml 1300 ml # Voids 1 # Bowel Movements 1 Laboratory Tests 03/05/20 08:20: White Blood Count 8.8, Red Blood Count 4.36L, Hemoglobin 14.1L, Hematocrit 44.4 , Mean Corpuscular Volume 102H, Mean Corpuscular Hemoglobin 32.4H, Mean Corpuscular Hemoglobin Concent 31.8L, Red Cell Distribution Width 12.5, Platelet Count 158, Mean Platelet Volume 8.2, Neutrophils (%) (Auto) 75.9H, Lymphocytes (%) (Auto) 12.6L, Monocytes (%) (Auto) 8.7, Eosinophils (%) (Auto) 1.9, Basophils (%) (Auto) 1.0, Sodium Level 138, Potassium Level 3.6, Chloride Level 100, Carbon Dioxide Level 32, Anion Gap 6, Blood Urea Nitrogen 6L, Creatinine 0.8, Estimat Glomerular Filtration Rate > 60, Glucose Level 147H, Calcium Level 8.5 Height (Feet): 5 Height (Inches): 7.00 Weight (Pounds): 246 Tong Greene M.D. Mar 05, 2020 10:34
[2020-03-05 12:00] VITALS: BP 146/80
--- NOTE | 2020-03-05 12:09 | NUR ---
DISCHARGE PLANNING PATIENT HAS BEEN REFERRED FOR SNF PLACEMENT TO: [facility] P: [phone] F: [phone] [facility] P: [phone] F: [phone] [facility] P: [phone] F: [phone] [facility] P: [phone] F: [phone] [facility] P: [phone] F: [phone]
--- NOTE | 2020-03-05 13:09 | NUR ---
Social Work This SW spoke with patient who explains he does not have any income for placement and does not want a senior living. Patient explains he is in agreement with SNF. Case Management informed. Patient is pending Social Security income benefits. This SW provided Board and Care/Independent placement contacts once he has his income approved. Patient declined any other homeless resources at this time.
--- NOTE | 2020-03-05 14:00 | NUR ---
NURSE NOTES: PT IS OFF NASAL CANNULA AND SATURATING 92% ON ROOM AIR. PT AMBULATING AND DENIES SOB OR TROUBLE BREATHING. PT TOLERATING WELL. CABEZAS CATH WAS DISCONTINUED PER DR CRENSHAW'S ORDERS.. POST VOID RESIDUAL 0ML AND DENIES ANY TROUBLE URINATING. WILL CONTINUE TO MONITOR.
--- NOTE | 2020-03-05 14:32 | NUR ---
DISCHARGE PLANNING FOLLOW UP WITH [facility]. PER TOMAS, PATIENT ACCEPTED FOR PLACEMENT WITH BED ASSIGNMENT 17-A SKILLED. WILL INFORM PATIENT AND MD.
--- NOTE | 2020-03-05 14:37 | NUR ---
SS note This SW provided patient with contact information for Board and Care (once he has income).
--- NOTE | 2020-03-05 15:03 | NUR ---
NURSE NOTES: JERMAINE BALDERRAMA, CM, PT ACCEPTED TO [facility]. RN SPOKE TO PT, PT REFUSING TO BE DISCHARGED TODAY. STATES HE NEEDS TO MAKE THIS DECISION WITH HIS BUT IS AT DOCTOR'S APPOINTMENTS TODAY. PT REQUESTS DISCHARGE TO BE HELD AT LEAST UNTIL TOMORROW. RN LEFT MESSAGE WITH DEAN AT DR CRENSHAW'S OFFICE. WILL CONTINUE TO MONITOR.
--- NOTE | 2020-03-05 15:13 | Internal Med Progress Note ---
Subjective Date of Service: Mar 05, 2020 Physician Name GauravLucero Attending Physician Jarad Banuelos MD Current Medications Medications (Trade) Dose Ordered Sig/Zan Route PRN Reason Start Time Stop Time Status Last Admin Dose Admin Acetaminophen (Tylenol) 650 mg Q4H PRN ORAL Mild Pain (Pain Scale 1-3) 03/02/20 21:45 03/30/20 21:44 03/05/20 03:16 Acetaminophen (Tylenol) 650 mg Q4H PRN ORAL Temp >100.5 03/02/20 21:45 03/30/20 21:44 Acetaminophen (Tylenol) 650 mg Q4H PRN RECTAL Mild Pain (Pain Scale 1-3) 03/02/20 21:45 03/30/20 21:44 Acetaminophen (Tylenol) 650 mg Q4H PRN RECTAL Temp >100.5 03/02/20 21:45 03/30/20 21:44 Amlodipine Besylate (Norvasc) 10 mg DAILY ORAL 03/04/20 14:00 04/03/20 13:59 03/05/20 08:54 Bisacodyl (Dulcolax) 10 mg HSPRN PRN RECTAL Constipation 03/02/20 21:45 05/29/20 21:44 Cetylpyridinium Chloride (Cepacol) 1 lozg Q2H PRN MAINOR For Cough 03/02/20 21:00 05/31/20 08:59 Clonidine HCl (Catapres Tab) 0.1 mg EVERY 6 HOURS PRN ORAL sbp > 160 03/04/20 09:30 06/02/20 09:29 Dextrose (Dextrose 50%) 25 ml Q30M PRN IV Hypoglycemia 03/02/20 20:45 05/29/20 21:44 Dextrose (Dextrose 50%) 50 ml Q30M PRN IV Hypoglycemia 03/02/20 20:45 05/29/20 21:44 Docusate Sodium (Colace) 100 mg EVERY 12 HOURS ORAL 03/02/20 21:00 03/31/20 08:59 03/05/20 08:54 Escitalopram Oxalate (Lexapro) 10 mg DAILY ORAL 03/03/20 09:00 04/02/20 08:59 03/05/20 08:54 Famotidine (Pepcid I.v.) 20 mg Q12HR IVP 03/03/20 18:00 7/13/20 17:59 03/05/20 08:54 Heparin Sodium (Porcine) (Heparin 5000 units/ml) 5,000 units EVERY 12 HOURS SUBQ 03/02/20 21:00 04/15/20 08:59 03/04/20 20:34 Lorazepam (Ativan 2mg/ml 1ml) 0.5 mg Q4H PRN IV Agitation 03/02/20 21:00 03/07/20 20:59 Magnesium Hydroxide (Mom) 30 ml HSPRN PRN ORAL Constipation 03/02/20 21:45 03/30/20 21:44 Ondansetron HCl (Zofran) 4 mg Q6H PRN IVP Nausea & Vomiting 03/02/20 21:00 03/30/20 20:59 03/05/20 11:43 Piperacillin Sod/ Tazobactam Sod 3.375 gm/Sodium Chloride 110 ml @ 27.5 mls/hr EVERY 8 HOURS IVPB 03/02/20 22:00 03/06/20 13:59 03/05/20 14:01 Polyethylene Glycol (Miralax) 17 gm HSPRN PRN ORAL Constipation 03/02/20 21:45 03/30/20 21:44 03/04/20 00:04 Sodium Chloride 1,000 ml @ 40 mls/hr Q24H IVLG 03/04/20 21:30 04/01/20 21:29 03/04/20 22:27 Tamsulosin HCl (Flomax) 0.4 mg BEDTIME ORAL 03/02/20 21:00 03/31/20 20:59 03/04/20 20:32 Allergies: Coded Allergies: No Known Allergies (Unverified , 03/02/20) Subjective Patient is doing well; at this point he is a placement issue. Visited by CM/SW regarding [place] [facility]. He states he needs to talk to his , as he in unsure if he can afford SNF. Objective Last Vital Signs Date Time Temp Pulse Resp B/P (MAP) Pulse Ox O2 Delivery O2 Flow Rate FiO2 03/05/20 12:00 97.7 64 18 146/80 (102) 95 03/05/20 09:00 Room Air 03/04/20 21:00 3.0 03/04/20 20:00 36 Laboratory Tests Test 03/05/20 08:20 White Blood Count 8.8 K/UL (4.8-10.8) Red Blood Count 4.36 M/UL (4.70-6.10) L Hemoglobin 14.1 G/DL (14.2-18.0) L Hematocrit 44.4 % (42.0-52.0) Mean Corpuscular Volume 102 FL (80-99) H Mean Corpuscular Hemoglobin 32.4 PG (27.0-31.0) H Mean Corpuscular Hemoglobin Concent 31.8 G/DL (32.0-36.0) L Red Cell Distribution Width 12.5 % (11.6-14.8) Platelet Count 158 K/UL (150-450) Mean Platelet Volume 8.2 FL (6.5-10.1) Neutrophils (%) (Auto) 75.9 % (45.0-75.0) H Lymphocytes (%) (Auto) 12.6 % (20.0-45.0) L Monocytes (%) (Auto) 8.7 % (1.0-10.0) Eosinophils (%) (Auto) 1.9 % (0.0-3.0) Basophils (%) (Auto) 1.0 % (0.0-2.0) Sodium Level 138 MMOL/L (136-145) Potassium Level 3.6 MMOL/L (3.5-5.1) Chloride Level 100 MMOL/L (98-107) Carbon Dioxide Level 32 MMOL/L (21-32) Anion Gap 6 mmol/L (5-15) Blood Urea Nitrogen 6 mg/dL (7-18) L Creatinine 0.8 MG/DL (0.55-1.30) Estimat Glomerular Filtration Rate > 60 mL/min (>60) Glucose Level 147 MG/DL (74-106) H Calcium Level 8.5 MG/DL (8.5-10.1) Intake and Output 03/04/20 03/05/20 19:00 07:00 Intake Total 432.5 ml 457.5 ml Output Total 150 ml 1300 ml Balance 282.5 ml -842.5 ml Intake Oral 240 ml IV Total 192.5 ml 457.5 ml Output Urine Total 150 ml 1300 ml # Voids 1 # Bowel Movements 1 Objective General Appearance: WD/WN, no apparent distress Cardiovascular: normal rate, regular rhythm Respiratory/Chest: lungs clear, normal breath sounds Abdomen: soft Neurologic: nurse general duty II-XII grossly normal Skin: warm/dry Assessment/Plan Assessment/Plan Assessment #SI/Drug Overdose/Depression #Acute hypercapnic Resp Failure 2/2 Above-Resolved #Aspiration PNA 2/2 Above #Acute urinary retention, resolved #MADHURI #Thrombocytopenia Plan Appreciate Consultants, f/u with psych recs. Patient is on Lexapro Continue Zosyn IV, dowell Cx. Gentle IVF, Supportive measures. Monitor urine output, Tamsulosin DVT ppx Supportive measures Diet 03/04: Patient is homeless; will need CM/SW consult in AM. D/C planning 03/05: Appreciated CM; patient to decide of SNF vs [place] [facility]. Clear for d/c in AM Lucero Nolasco D.O. Mar 05, 2020 15:13
[2020-03-05 16:00] VITALS: BP_SYST 136; BP_SYST 142; BP_DIAS 76; BP_DIAS 89
--- NOTE | 2020-03-05 16:23 | NUR ---
NURSE NOTES: RN LEFT PAGE FOR DR YENY SALMON. NO CALL BACK FROM DR CRENSHAW. AWAITING CALL BACK.
--- NOTE | 2020-03-05 17:22 | NUR ---
CASE MANAGEMENT:REVIEW SI;S/P DRUG OVERDOSE. PNA. MADHURI. 98.4 71 140/85 94% 4L NC FIO2 @ 36% IS;IVF NS NORVASC PO QD ZOSYN IV Q8 HRS PEPCID IV BID MED SURG STATUS DCP;PATIENT IS HOMELESS PLAN;SNF PLACEMENT WHEN CLEARED FOR DC
[2020-03-05] MEDS ORDERED: Sterile Water Irrig 1000ml IRRIG ONE (17:42)
--- NOTE | 2020-03-05 18:46 | NUR ---
NURSE NOTES: RN SPOKE TO DR YENY SALMON, WHO STATES SHE IS THE PRIMARY MD ON THE CASE. RN MADE MD AWARE PT DOES NOT WANT TO LEAVE TODAY AND REQUESTING TO BE DISCHARGED TOMORROW DUE TO FINANCIAL ISSUES. PER MD, OK TO HOLD DISCHARGE UNTIL TOMORROW.
--- NOTE | 2020-03-05 19:45 | NUR ---
HAND-OFF: Report given to Kacey RODRIGUEZ RN.
[2020-03-05 20:09] VITALS: BP 158/82
[2020-03-05] MEDS: Tamsulosin 0.4mg cap ORAL SCH (21:34)
--- NOTE | 2020-03-05 22:18 | Psych Consult Progress Note ---
Psychiatry Progress Note Psychiatry Progress Note Subjective the pt is doing well not suicidal Medications Current Medications Medications (Trade) Dose Ordered Sig/Zan Route PRN Reason Start Time Stop Time Status Last Admin Dose Admin Acetaminophen (Tylenol) 650 mg Q4H PRN ORAL Mild Pain (Pain Scale 1-3) 03/02/20 21:45 03/30/20 21:44 03/05/20 21:35 Acetaminophen (Tylenol) 650 mg Q4H PRN ORAL Temp >100.5 03/02/20 21:45 03/30/20 21:44 Acetaminophen (Tylenol) 650 mg Q4H PRN RECTAL Mild Pain (Pain Scale 1-3) 03/02/20 21:45 03/30/20 21:44 Acetaminophen (Tylenol) 650 mg Q4H PRN RECTAL Temp >100.5 03/02/20 21:45 03/30/20 21:44 Amlodipine Besylate (Norvasc) 10 mg DAILY ORAL 03/04/20 14:00 04/03/20 13:59 03/05/20 08:54 Bisacodyl (Dulcolax) 10 mg HSPRN PRN RECTAL Constipation 03/02/20 21:45 05/29/20 21:44 Cetylpyridinium Chloride (Cepacol) 1 lozg Q2H PRN MAINOR For Cough 03/02/20 21:00 05/31/20 08:59 Clonidine HCl (Catapres Tab) 0.1 mg EVERY 6 HOURS PRN ORAL sbp > 160 03/04/20 09:30 06/02/20 09:29 Dextrose (Dextrose 50%) 25 ml Q30M PRN IV Hypoglycemia 03/02/20 20:45 05/29/20 21:44 Dextrose (Dextrose 50%) 50 ml Q30M PRN IV Hypoglycemia 03/02/20 20:45 05/29/20 21:44 Docusate Sodium (Colace) 100 mg EVERY 12 HOURS ORAL 03/02/20 21:00 03/31/20 08:59 03/05/20 21:34 Escitalopram Oxalate (Lexapro) 10 mg DAILY ORAL 03/03/20 09:00 04/02/20 08:59 03/05/20 08:54 Famotidine (Pepcid I.v.) 20 mg Q12HR IVP 03/03/20 18:00 04/02/20 17:59 03/05/20 21:35 Heparin Sodium (Porcine) (Heparin 5000 units/ml) 5,000 units EVERY 12 HOURS SUBQ 03/02/20 21:00 04/15/20 08:59 03/05/20 21:36 Lorazepam (Ativan 2mg/ml 1ml) 0.5 mg Q4H PRN IV Agitation 03/02/20 21:00 03/07/20 20:59 Magnesium Hydroxide (Mom) 30 ml HSPRN PRN ORAL Constipation 03/02/20 21:45 03/30/20 21:44 Ondansetron HCl (Zofran) 4 mg Q6H PRN IVP Nausea & Vomiting 03/02/20 21:00 03/30/20 20:59 03/05/20 18:00 Piperacillin Sod/ Tazobactam Sod 3.375 gm/Sodium Chloride 110 ml @ 27.5 mls/hr EVERY 8 HOURS IVPB 03/02/20 22:00 03/06/20 13:59 03/05/20 21:34 Polyethylene Glycol (Miralax) 17 gm HSPRN PRN ORAL Constipation 03/02/20 21:45 03/30/20 21:44 03/04/20 00:04 Sodium Chloride 1,000 ml @ 40 mls/hr Q24H IVLG 03/04/20 21:30 04/01/20 21:29 03/04/20 22:27 Tamsulosin HCl (Flomax) 0.4 mg BEDTIME ORAL 03/02/20 21:00 03/31/20 20:59 03/05/20 21:34 Allergies: Coded Allergies: No Known Allergies (Unverified , 03/02/20) Objective Data Height (Feet): 5 Height (Inches): 7.00 Weight (Pounds): 246 General Appearance: WD/WN, no apparent distress, alert Additional Comments: alert and oriented times self, place, situation, and date. Mood is slightly irritable. Affect is constricted with congruent with mood. Thought process is concrete. Thought content, no suicidal or homicidal ideation. Cognition is intact. Insight and judgment are fair. Assessment/Plan Status: stable Assessment/Plan: ASSESSMENT: AXIS I: Major depressive disorder. AXIS II: Deferred. AXIS III: As above. AXIS IV: Low. AXIS V: 25. PLAN: 1. - Lexapro 10mg . 2. The patient is not an imminent danger to self or others. 3. We will continue to follow and readjust the medications. 4. The patient should be discharged when medically stable. Ashia Del Real MD Mar 05, 2020 22:18
[2020-03-06] VITALS: BP 140/82
[2020-03-06] MEDS: Piperacillin/Tazobactam 3.375 GM in NS 110 ML IVPB SCH (04:00)
[2020-03-06 04:04] VITALS: BP 140/76
--- NOTE | 2020-03-06 07:35 | NUR ---
HAND-OFF: Report given to Lorna Somers RN.
[2020-03-06 08:00] VITALS: BP 138/86
--- NOTE | 2020-03-06 08:06 | NUR ---
NURSE NOTES: Patient, awake, alert x4; on room air, no sing of shortness of breath; no sing of chest pain; IV Left-Hand NS 40cc running; side rails up x2, breaks engaged, bed at lowest position; Urinal within reach; call light within reach; will keep monitoring.
[2020-03-06] MEDS: Docusate 100mg cap ORAL SCH (09:40)
[2020-03-06] MEDS: Heparin 5000 units/ml inj SUBQ SCH (09:41)
[2020-03-06] MEDS ORDERED: NORVASC10 MG ORAL ×3 (10:56→12:20)
[2020-03-06] MEDS ORDERED: LEXAPRO10 MG ORAL ×3 (10:56→12:20)
[2020-03-06] MEDS ORDERED: FAMOTIDINE20 MG ORAL (10:56)
[2020-03-06] MEDS ORDERED: CLONIDINE HCL0.1 MG ORAL (10:56)
[2020-03-06] MEDS ORDERED: MIRALAX119 GM ORAL (10:56)
[2020-03-06] MEDS ORDERED: ZOFRAN4 M3 ORAL (10:56)
[2020-03-06] MEDS ORDERED: FLOMAX0.4 MG ORAL ×3 (10:56→12:20)
[2020-03-06] MEDS ORDERED: COLACE100 MG ORAL (10:56)
[2020-03-06] MEDS ORDERED: AUGMENTIN 875-1 EAC1 ORAL ×2 (10:56)
[2020-03-06] MEDS ORDERED: ACETAMINOPHEN325 M1 ORAL (10:56)
[2020-03-06] MEDS ORDERED: DULCOLAX10 MG RECTAL (10:56)
--- NOTE | 2020-03-06 11:01 | Pulmonology Progress Note ---
Subjective ROS Limited/Unobtainable: No Allergies: Coded Allergies: No Known Allergies (Unverified , 03/02/20) Subjective weaned off O2 pulse ox stable no SOB, no CP no cough F/c dc, voided w/out difficulties still some nausea , but tolerates food, no vomiting leuk resolved, remains afebrile occasional dry cough, no wheezing, no hemoptysis Objective Last 24 Hour Vital Signs Date Time Temp Pulse Resp B/P (MAP) Pulse Ox O2 Delivery O2 Flow Rate FiO2 03/06/20 09:43 65 16 97 Room Air 21 03/06/20 09:40 65 138/86 03/06/20 09:00 Room Air 03/06/20 08:00 98.0 65 20 138/86 (103) 97 03/06/20 07:00 97 Room Air 21 03/06/20 04:04 97.0 60 20 140/76 (97) 95 03/06/20 00:00 97.9 62 20 140/82 (101) 95 03/05/20 22:09 97.9 03/05/20 21:59 Room Air 03/05/20 20:09 97.9 69 18 158/82 (107) 92 03/05/20 18:33 91 Room Air 21 03/05/20 16:00 98.1 71 18 142/89 (106) 90 03/05/20 12:00 97.7 64 18 146/80 (102) 95 Intake and Output 03/05/20 03/06/20 19:00 07:00 Intake Total 777.5 ml 392.5 ml Balance 777.5 ml 392.5 ml Intake Oral 480 ml IV Total 297.5 ml 392.5 ml # Voids 2 3 # Bowel Movements 1 Objective General Appearance: awake and alert, on O2 via NC Lines, tubes and drains: peripheral HEENT: normocephalic, atraumatic, anicteric Respiratory/Chest: lungs clear, Cardiovascular/Chest: normal rate - SR on tele Abdomen: normal bowel sounds, non tender, soft Extremities: normal capillary refill, no edema Skin Exam: warm/dry, skin tattoos noted Musculoskeletal: normal muscle bulk Current Medications Medications (Trade) Dose Ordered Sig/Zan Route PRN Reason Start Time Stop Time Status Last Admin Dose Admin Acetaminophen (Tylenol) 650 mg Q4H PRN ORAL Mild Pain (Pain Scale 1-3) 6/12/20 21:45 03/30/20 21:44 03/05/20 21:35 Acetaminophen (Tylenol) 650 mg Q4H PRN ORAL Temp >100.5 03/02/20 21:45 03/30/20 21:44 Acetaminophen (Tylenol) 650 mg Q4H PRN RECTAL Mild Pain (Pain Scale 1-3) 03/02/20 21:45 03/30/20 21:44 Acetaminophen (Tylenol) 650 mg Q4H PRN RECTAL Temp >100.5 03/02/20 21:45 03/30/20 21:44 Amlodipine Besylate (Norvasc) 10 mg DAILY ORAL 03/04/20 14:00 04/03/20 13:59 03/06/20 09:40 Bisacodyl (Dulcolax) 10 mg HSPRN PRN RECTAL Constipation 03/02/20 21:45 05/29/20 21:44 Cetylpyridinium Chloride (Cepacol) 1 lozg Q2H PRN MAINOR For Cough 03/02/20 21:00 05/31/20 08:59 Clonidine HCl (Catapres Tab) 0.1 mg EVERY 6 HOURS PRN ORAL sbp > 160 03/04/20 09:30 06/02/20 09:29 Dextrose (Dextrose 50%) 25 ml Q30M PRN IV Hypoglycemia 03/02/20 20:45 05/29/20 21:44 Dextrose (Dextrose 50%) 50 ml Q30M PRN IV Hypoglycemia 03/02/20 20:45 05/29/20 21:44 Docusate Sodium (Colace) 100 mg EVERY 12 HOURS ORAL 03/02/20 21:00 03/31/20 08:59 03/06/20 09:40 Escitalopram Oxalate (Lexapro) 10 mg DAILY ORAL 03/03/20 09:00 04/02/20 08:59 03/06/20 09:40 Famotidine (Pepcid I.v.) 20 mg Q12HR IVP 03/03/20 18:00 04/02/20 17:59 03/06/20 09:41 Heparin Sodium (Porcine) (Heparin 5000 units/ml) 5,000 units EVERY 12 HOURS SUBQ 03/02/20 21:00 04/15/20 08:59 03/06/20 09:41 Lorazepam (Ativan 2mg/ml 1ml) 0.5 mg Q4H PRN IV Agitation 03/02/20 21:00 03/07/20 20:59 Magnesium Hydroxide (Mom) 30 ml HSPRN PRN ORAL Constipation 03/02/20 21:45 03/30/20 21:44 Ondansetron HCl (Zofran) 4 mg Q6H PRN IVP Nausea & Vomiting 03/02/20 21:00 03/30/20 20:59 03/05/20 18:00 Piperacillin Sod/ Tazobactam Sod 3.375 gm/Sodium Chloride 110 ml @ 27.5 mls/hr EVERY 8 HOURS IVPB 03/02/20 22:00 03/06/20 13:59 03/06/20 04:00 Polyethylene Glycol (Miralax) 17 gm HSPRN PRN ORAL Constipation 03/02/20 21:45 03/30/20 21:44 03/04/20 00:04 Sodium Chloride 1,000 ml @ 40 mls/hr Q24H IVLG 03/04/20 21:30 04/01/20 21:29 03/04/20 22:27 Tamsulosin HCl (Flomax) 0.4 mg BEDTIME ORAL 03/02/20 21:00 03/31/20 20:59 03/05/20 21:34 Assessment/Plan Assessment/Plan ASSESSMENT Acute toxic metabolic encephalopathy due to OD on narcotic analgesics - resolved Acute hypoxemic hypercapnic respiratory failure, requiring NRM and BiPAP - resolved Sepsis Probably aspiration PNA-improving Acute renal failure, possibly on CKD -resolved Lactic acidosis Transaminitis Suicidal attempt Newly diagnosed HTN PLAN OF CARE MS floor pulm toilet empiric abx /Zosyn BCX 01/28 NGTD SARS COV2 by ELIANA 03/01 not detected CXR 03/02 Extensive peripheral right lung infiltrates, likely pneumonia and small nodular left lung infiltrate, developing since prior study of 2 days earlier. CXR 03/05 with slightly improved right basilar infiltrate. remains afebrile, leukocytosis resolved weaned from o2, pulse ox stable on RA epistasis episode 03/03 felt to be due to dryness of mucosa, started 03/03 on humidified O2 PLT count monitored 03/03 - 112, but 03/04 -131 HH stable no further episodes O2 titrate further DVT prophylaxis asp precautions swallow eval stable BP elevated no hx of HTN add Clonidine prn , likely due to drug w/drawl decrease IVF rate to 40 and dc in am monitor renal parameters, lytes avoid nephrotoxics correct lytes as needed , P replaced with Phospho soda 03/03, P stable this am, dc Phospho soda creat stable Gaviria dc , voiding freely, on Flomax trend LFT , hep panel pending psych eval appreciated supportive care dc plan in process SNF placement found dc to SNF continue oral abx for 5 more days continue with anti HTN, GI propahyxlsi and a/emetic, monitor for resolution of nausea case discussed and evaluated by supervising physician Marcela Salmeron NP Mar 06, 2020 11:01
--- NOTE | 2020-03-06 11:17 | NUR ---
TUBE DRAW HELPER NOTE SW met w/ pt and clarified DC plan. Pt agreed to be discharged to [facility]. Pt provided verbal consent to speak to his , Genet who is currently residing at [facility]. Genet addressed pt's mental health issue. ROSE explained that pt can be seen by the residential psychiatrist at [facility]. Pt can also start outpatient MHS and such referral can be made by the residential psychiatrist or he can schedule his own appointment if he is willing to participate. ROSE explained to pt's that the long term can request emergency psychiatric evaluation if needed. SW explained and provided mental health resource including hotline numbers and the community resource packet. PT currently denies thoughts of harming self or others. Pt denies having suicidal plan. Pt continues to present as frustrated and irritable that he is homeless and lost everything that he had. ROSE encouraged pt to utilize community mental health resource. ROSE spoke w/ Kylie from [facility] [phone] #7 and was informed there is no bed available at this time. ROSE informed of such message to pt.
--- NOTE | 2020-03-06 11:41 | NUR ---
*-*DISCHARGE PLANNING*-* PATIENT HAS BEEN ACCEPTED AND WILL BE DISCHARGED TO: [facility] P: [phone]. FOR NURSE TO NURSE REPORT. RM# 17-A [facility] SET FOR 12:20PM S/W [id number] PLACED A TWO CALLS TO PATIENT , ROSALINE WILSON, UNABLE TO SPEAK TO PATIENTS , LEFT TWO VOICE MESSAGES IN REGARDS WITH DISCHARGE PLAN.
[2020-03-06 12:00] VITALS: BP 159/81
--- NOTE | 2020-03-06 12:10 | Internal Med Progress Note ---
Subjective Date of Service: Mar 06, 2020 Physician Name GauravLucero Attending Physician Jarad Banuelos MD Current Medications Medications (Trade) Dose Ordered Sig/Zan Route PRN Reason Start Time Stop Time Status Last Admin Dose Admin Acetaminophen (Tylenol) 650 mg Q4H PRN ORAL Mild Pain (Pain Scale 1-3) 03/02/20 21:45 03/30/20 21:44 03/05/20 21:35 Acetaminophen (Tylenol) 650 mg Q4H PRN ORAL Temp >100.5 03/02/20 21:45 03/30/20 21:44 Acetaminophen (Tylenol) 650 mg Q4H PRN RECTAL Mild Pain (Pain Scale 1-3) 03/02/20 21:45 03/30/20 21:44 Acetaminophen (Tylenol) 650 mg Q4H PRN RECTAL Temp >100.5 03/02/20 21:45 03/30/20 21:44 Amlodipine Besylate (Norvasc) 10 mg DAILY ORAL 03/04/20 14:00 04/03/20 13:59 03/06/20 09:40 Bisacodyl (Dulcolax) 10 mg HSPRN PRN RECTAL Constipation 03/02/20 21:45 05/29/20 21:44 Cetylpyridinium Chloride (Cepacol) 1 lozg Q2H PRN MAINOR For Cough 03/02/20 21:00 05/31/20 08:59 Clonidine HCl (Catapres Tab) 0.1 mg EVERY 6 HOURS PRN ORAL sbp > 160 03/04/20 09:30 06/02/20 09:29 Dextrose (Dextrose 50%) 25 ml Q30M PRN IV Hypoglycemia 03/02/20 20:45 05/29/20 21:44 Dextrose (Dextrose 50%) 50 ml Q30M PRN IV Hypoglycemia 03/02/20 20:45 05/29/20 21:44 Docusate Sodium (Colace) 100 mg EVERY 12 HOURS ORAL 03/02/20 21:00 03/31/20 08:59 03/06/20 09:40 Escitalopram Oxalate (Lexapro) 10 mg DAILY ORAL 03/03/20 09:00 04/02/20 08:59 03/06/20 09:40 Famotidine (Pepcid I.v.) 20 mg Q12HR IVP 03/03/20 18:00 7/13/20 17:59 03/06/20 09:41 Heparin Sodium (Porcine) (Heparin 5000 units/ml) 5,000 units EVERY 12 HOURS SUBQ 03/02/20 21:00 04/15/20 08:59 03/06/20 09:41 Lorazepam (Ativan 2mg/ml 1ml) 0.5 mg Q4H PRN IV Agitation 03/02/20 21:00 03/07/20 20:59 Magnesium Hydroxide (Mom) 30 ml HSPRN PRN ORAL Constipation 03/02/20 21:45 03/30/20 21:44 Ondansetron HCl (Zofran) 4 mg Q6H PRN IVP Nausea & Vomiting 03/02/20 21:00 03/30/20 20:59 03/05/20 18:00 Piperacillin Sod/ Tazobactam Sod 3.375 gm/Sodium Chloride 110 ml @ 27.5 mls/hr EVERY 8 HOURS IVPB 03/02/20 22:00 03/06/20 13:59 03/06/20 04:00 Polyethylene Glycol (Miralax) 17 gm HSPRN PRN ORAL Constipation 03/02/20 21:45 03/30/20 21:44 03/04/20 00:04 Sodium Chloride 1,000 ml @ 40 mls/hr Q24H IVLG 03/04/20 21:30 04/01/20 21:29 03/04/20 22:27 Tamsulosin HCl (Flomax) 0.4 mg BEDTIME ORAL 03/02/20 21:00 03/31/20 20:59 03/05/20 21:34 Allergies: Coded Allergies: No Known Allergies (Unverified , 03/02/20) Subjective Conversation with patient at bedside, he still is feeling very down however he is not suicidal. He is agreed to go to the shelter as he has no other placement. He completed his antibiotic course today will not require antibiotics. Will resume other medications and he is cleared for discharge.. Objective Last Vital Signs Date Time Temp Pulse Resp B/P (MAP) Pulse Ox O2 Delivery O2 Flow Rate FiO2 03/06/20 09:43 65 16 97 Room Air 21 03/06/20 09:40 138/86 03/06/20 08:00 98.0 03/04/20 21:00 3.0 Intake and Output 03/05/20 03/06/20 19:00 07:00 Intake Total 777.5 ml 392.5 ml Balance 777.5 ml 392.5 ml Intake Oral 480 ml IV Total 297.5 ml 392.5 ml # Voids 2 3 # Bowel Movements 1 Objective General Appearance: WD/WN, no apparent distress Cardiovascular: normal rate, regular rhythm Respiratory/Chest: lungs clear, normal breath sounds Abdomen: soft Neurologic: polish maker II-XII grossly normal Skin: warm/dry Assessment/Plan Assessment/Plan Assessment #SI/Drug Overdose/Depression #Acute hypercapnic Resp Failure 2/2 Above-Resolved #Aspiration PNA 2/2 Above #Acute urinary retention, resolved #MADHURI #Thrombocytopenia Plan Appreciate Consultants, f/u with psych recs. Patient is on Lexapro Continue Zosyn IV, dowell Cx. Gentle IVF, Supportive measures. Monitor urine output, Tamsulosin DVT ppx Supportive measures Diet 03/04: Patient is homeless; will need CM/SW consult in AM. D/C planning 03/05: Appreciated CM; patient to decide of SNF vs fpc. Clear for d/c in AM 03/06: Patient has decided to go to intermediate home. Completed antibiotic course today, no new need to prescribe anymore. Resume other medications including antidepressant started by psychiatry Lucero Nolasco D.O. Mar 06, 2020 12:10
[2020-03-06] MEDS ORDERED: ACETAMINOPHEN650 MG RECTAL (12:17)
[2020-03-06] MEDS ORDERED: MOM30 ML ORAL (12:17)
--- NOTE | 2020-03-06 12:21 | Discharge Instructions ---
Discharge Instructions For Congestive Heart Failure Reminder Report to your physician any weight gain of 5 pounds or more in one week. Lucero Nolasco D.O. Mar 06, 2020 12:21
--- NOTE | 2020-03-06 13:10 | NUR ---
NURSE NOTES: Patient discharged to [facility]; Telephone report given to DANIEL Tinoco; IV access and name tag removed upon discharge; belonging lists singed by patient and nurse; t-shirt, boxer and hospital pant provided to patient; printed package given to [facility] ambulance personnel; patient's notified by case management regarding patient's discharge and placement; patient is stable upon discharge;
--- NOTE | 2020-03-06 13:25 | Nephrology Progress Note ---
Assessment/Plan Plan #Acute kidney injury due to pre-renal azotemia - on CKD- improved #Sepsis #opiod overdose #hypoxemic resp failure # toxic metabolic encephalopathy # possible aspiration pneumonia - DC IVF - voiding trial today - amlodipine 10mg daily - clonidine 0.1mg q2hr prn - monitor UOP - COVID ruled out - defer renal imaging at this time - antibiotics per ID - monitor BMP, mag and phos daily - avoid nephrotoxins - strict I&Os - daily weights time spent 35min Subjective Subjective Cr downtrending alert and interactive urinating ok BP stable afeb satting well on NC Objective Objective Last 24 Hour Vital Signs Date Time Temp Pulse Resp B/P (MAP) Pulse Ox O2 Delivery O2 Flow Rate FiO2 03/06/20 12:00 97.7 69 20 159/81 (107) 93 03/06/20 09:43 65 16 97 Room Air 21 03/06/20 09:40 65 138/86 03/06/20 09:00 Room Air 03/06/20 08:00 98.0 65 20 138/86 (103) 97 03/06/20 07:00 97 Room Air 21 03/06/20 04:04 97.0 60 20 140/76 (97) 95 03/06/20 00:00 97.9 62 20 140/82 (101) 95 03/05/20 22:09 97.9 03/05/20 21:59 Room Air 03/05/20 20:09 97.9 69 18 158/82 (107) 92 03/05/20 18:33 91 Room Air 21 03/05/20 16:00 98.1 71 18 142/89 (106) 90 Intake and Output 03/05/20 03/06/20 19:00 07:00 Intake Total 777.5 ml 392.5 ml Balance 777.5 ml 392.5 ml Intake Oral 480 ml IV Total 297.5 ml 392.5 ml # Voids 2 3 # Bowel Movements 1 Height (Feet): 5 Height (Inches): 7.00 Weight (Pounds): 244 Tong Greene M.D. Mar 06, 2020 13:25
--- NOTE | 2020-03-06 17:04 | Discharge Summary ---
Discharge Summary Hospital Course Date of Admission Feb 29, 2020 at 18:50 Date of Discharge Mar 06, 2020 at 13:30 Admitting Diagnosis overdose, aspiration pneumonia HPI 64 y/o man brought in by EMS for opiate overdose and unresponsive with oxycodone pill sfound at bedside, s/p improvement with narcan in ED. Was found by the hotel valet attendant, who called 911. He denies any suicidal intent, though he reports he was having "financial problems." He doesn't take any other medications. He denies prior hx of overdose or oxycodone use, this was his first time. Hospital Course Assessment #SI/Drug Overdose/Depression #Acute hypercapnic Resp Failure 2/2 Above-Resolved #Aspiration PNA 2/2 Above #Acute urinary retention, resolved #MADHURI #Thrombocytopenia Plan Appreciate Consultants, f/u with psych recs. Patient is on Lexapro Continue Zosyn IV, dowell Cx. Gentle IVF, Supportive measures. Monitor urine output, Tamsulosin DVT ppx Supportive measures Diet 03/04: Patient is homeless; will need CM/SW consult in AM. D/C planning 03/05: Appreciated CM; patient to decide of SNF vs halfway. Clear for d/c in AM 03/06: Patient has decided to go to [facility]. Completed antibiotic course today, no new need to prescribe anymore. Resume other medications including antidepressant started by psychiatry Patient completed antibiotic course Zosyn for aspiration PNA and also tested negative for COVID. He was seen and cleared by [facility]. Because he is homeless, he decided to go to a SNF. Kidney function resolved and all labs WNL. Luceor Nolasco D.O. Mar 06, 2020 12:10 Discharge Discharge Vital Signs Last Vital Signs Date Time Temp Pulse Resp B/P (MAP) Pulse Ox O2 Delivery O2 Flow Rate FiO2 03/06/20 12:00 97.7 69 20 159/81 (107) 93 03/06/20 09:43 Room Air 21 03/04/20 21:00 3.0 Discharge Disposition Patient was discharged to Lucero Nolasco D.O. Mar 06, 2020 17:04
== END 2020-03-06 13:30 | DRG 871 ==
LOC: EDBD 14:11 → EMR 14:45 → 2W 18:50 → EDBEDREQSVC 22:40 → EDBEDREQ 22:40 → EDBEDREQTM 03-01 01:25 → EDBEDREQSVC 03-01 01:25 → EDBEDREQDT 03-01 01:25 → EDBEDREQ 03-01 01:27 → ICU 03-01 02:05 → 4E 03-02 20:00
DX: A41.9 Sepsis, unspecified organism (principal); J69.0 Pneumonitis due to inhalation of food and vomit; J96.02 Acute respiratory failure with hypercapnia; G92 Toxic encephalopathy; R40.20 Unspecified coma; J96.01 Acute respiratory failure with hypoxia; N17.9 Acute kidney failure, unspecified; T40.2X2A Poisoning by other opioids, intentional self-harm, initial encounter; T14.91XA Suicide attempt, initial encounter; Y92.59 Other trade areas as the place of occurrence of the external cause; N18.9 Chronic kidney disease, unspecified; F32.9 Major depressive disorder, single episode, unspecified; Z59.0 Homelessness; D69.6 Thrombocytopenia, unspecified; R33.9 Retention of urine, unspecified; R04.0 Epistaxis; I10 Essential (primary) hypertension
CPT/HCPCS: 36415; 36600; 71045; 80048; 80053; 80307; 81003; 82570; 82803; 83605; 83735; 84100; 84300; 85007; 85025; 86705; 86709; 86803; 87040; 87081; 87340; 93005; 94660; 94664; 96361; 96365; 96368; 99291; 99292; C9399; G0480; J2310; J2405; J7030